=== PATIENT | female | born 1980 | race African-American/Black ===

== ENCOUNTER 2017-02-26 09:53 | Inpatient (IN) | payer OTHER ==
--- NOTE | 2017-02-26 10:16 | PDOC ---
History of Present Illness - History of Present Illness Initial Comments: 02/26/17 11:20 The patient is a 36 year old female, with a significant past medical history of diabetes (17 years) insulin dependent, DKA, who was sent here by her provider for blood glucose of 487. Patient states that she moved to [facility] 3 months ago from [facility]. She states she hasnt found a job since November and has been stretching out her dosage of insulin until she got a chance to see a primary care doctor. She took her last dose of Levemir last night and 26 units of Humalog. She is complaining of nausea, vomiting (clear), diarrhea, abdominal cramping, and burning when she pees. She states her son is also vomiting and has diarrhea. She denies recent fevers, chills, headache or dizziness. She denies recent frequency, urgency or hematuria. She denies recent chest pain or shortness of breath. Allergies: penicillins Primary Care Physician: none <Yesica Bryan - Last Filed: 02/26/17 11:29> <Gricel Hill - Last Filed: 02/26/17 12:12> - General Chief Complaint: Blood Sugar Problem Stated Complaint: DEHYDRATED (REFERRED) Time Seen by Provider: 02/26/17 10:14 Past History <Yesica Bryan - Last Filed: 02/26/17 11:29> - Past Medical History COPD: No Diabetes: Yes - Suicide/Smoking/Psychosocial Hx Smoking History: Never smoked Hx Alcohol Use: No Drug/Substance Use Hx: No Substance Use Type: None <Gricel Hill - Last Filed: 02/26/17 12:12> - Past Medical History Allergies/Adverse Reactions: Allergies Allergy/AdvReac Type Severity Reaction Status Date / Time Penicillins Allergy Verified 02/26/17 10:07 Home Medications: Ambulatory Orders Insulin (Levemir) [Levemir Vial] 35 units SQ BID 02/26/17 Insulin Lispro [Humalog] 0 unit SQ ASDIR 02/26/17 Review of Systems - Review of Systems Comments:: 02/26/17 11:28 GENERAL/CONSTITUTIONAL: No fever or chills. No weakness. HEAD, EYES, EARS, NOSE AND THROAT: No change in vision. No ear pain or discharge. No sore throat. GASTROINTESTINAL: +nausea, +vomiting, +diarrhea, +abdominal cramping, no constipation. GENITOURINARY: +dysuria, no frequency. CARDIOVASCULAR: No chest pain or shortness of breath. RESPIRATORY: No cough, wheezing, or hemoptysis. MUSCULOSKELETAL: No joint or muscle swelling or pain. No neck or back pain. SKIN: No rash NEUROLOGIC: No headache, vertigo, loss of consciousness, or change in strength/ sensation. ENDOCRINE: No increased thirst. No abnormal weight change. HEMATOLOGIC/LYMPHATIC: No anemia, easy bleeding, or history of blood clots. ALLERGIC/IMMUNOLOGIC: No hives or skin allergy. <Yesica Bryan - Last Filed: 02/26/17 11:29> *Physical Exam - Vital Signs Last Vital Signs Temp Pulse Resp BP Pulse Ox 97.5 F L 97 H 20 107/57 100 02/26/17 10:03 02/26/17 10:03 02/26/17 10:03 02/26/17 10:03 02/26/17 11:03 - Physical Exam Comments: 02/26/17 11:31 GENERAL: Awake, alert, and fully oriented, in no acute distress HEAD: No signs of trauma EYES: PERRLA, EOMI, sclera anicteric, conjunctiva clear ENT: Auricles normal inspection, hearing grossly normal, nares patent, oropharynx clear without exudates. Moist mucosa NECK: Normal ROM, supple, no lymphadenopathy, JVD, or masses LUNGS: Breath sounds equal, clear to auscultation bilaterally. No wheezes, and no crackles HEART: +tackycardic.No murmurs, rubs or gallops ABDOMEN: +mild diffuse tenderness. Soft, normoactive bowel sounds. No guarding , no rebound. No masses EXTREMITIES: +trace edema in legs. Normal range of motion. No clubbing or cyanosis. No cords, erythema, or tenderness NEUROLOGICAL: Cranial nerves II through XII grossly intact. Normal speech, normal gait SKIN: Warm, Dry, normal turgor, no rashes or lesions noted. <Yesica Bryan - Last Filed: 02/26/17 11:29> - Vital Signs Last Vital Signs Temp Pulse Resp BP Pulse Ox 97.5 F L 97 H 20 107/57 98 02/26/17 10:03 02/26/17 10:03 02/26/17 10:03 02/26/17 10:03 02/26/17 10:03 <Gricel Hill - Last Filed: 02/26/17 12:12> Heart Score/ECG Review - ECG Intrepretation Comment:: 02/26/17 12:12 sinus at 96, nl axis, nl interval, no acute st/t wave findings <Gricel Hill - Last Filed: 02/26/17 12:12> ED Treatment Course - LABORATORY CBC & Chemistry Diagram: 02/26/17 10:49 02/26/17 10:49 - ADDITIONAL ORDERS Additional order review: Laboratory Results 02/26/17 10:42 ABG pH 7.32 L ABG pCO2 at Pt Temp 19.5 L* ABG pO2 at Pt Temp 141.0 H ABG HCO3 9.9 L* 02/26/17 10:49 RBC 4.46 MCV 89.5 MCHC 31.8 L RDW 13.1 MPV 7.6 Neutrophils % 86.9 H Lymphocytes % 10.0 Monocytes % 2.2 L Eosinophils % 0.1 Basophils % 0.8 - Medications Given in the ED: ED Medications Discontinued Medications Generic Name Dose Route Start Last Admin Trade Name Freq PRN Reason Stop Dose Admin Sodium Chloride 1,000 mls @ 1,000 mls/hr 02/26/17 10:17 02/26/17 10:42 Normal Saline - IV 02/26/17 11:16 1,000 mls/hr .Q1H STA Administration Famotidine/Sodium Chloride 20 mg in 50 mls @ 100 mls/hr 02/26/17 10:47 11:15 Pepcid 20 Mg Premixed Ivpb - IVPB 02/26/17 11:16 100 mls/hr ONCE ONE Administration Ondansetron HCl 8 mg 02/26/17 10:46 02/26/17 11:15 Zofran Odt - SL 02/26/17 10:47 8 mg ONCE ONE Administration Sodium Chloride 1,000 ml 02/26/17 10:47 02/26/17 11:15 Normal Saline - IV 02/26/17 10:48 1,000 ml ONCE ONE Administration <Yesica Bryan - Last Filed: 02/26/17 11:29> - LABORATORY CBC & Chemistry Diagram: 02/26/17 10:49 02/26/17 10:49 <Gricel Hill - Last Filed: 02/26/17 12:12> Medical Decision Making - Critical Care Time Total Critical Care Time (minutes): 45 Critical Care Statement: The care of this patient involved high complexity decision making to prevent further life threatening deterioration of the patient 's condition and/or to evaluate & treat vital organ system(s) failure or risk of failure. - Medical Decision Making 02/26/17 11:48 a/p: 36yo female with hyperglycemia, n/v/d -hx of dka and symptoms similar -has been trying to stretch her meds so using less insulin than prescribed. -tachypnic -concern for poss UTI given dysuria -labs, ekg, cxr, ua, cultures, acetone, abg, reassess -will need admission -pt agreeable to stay for further eval 02/26/17 11:[address] Lujan who accepts the patient to the ICU 02/26/17 11:[address] Kumar who accepts pt to service. 02/26/17 12:12 pt updated on labs. <Gricel Hill - Last Filed: 02/26/17 12:12> *DC/Admit/Observation/Transfer - Attestations Scribe Attestion: 02/26/17 11:34 Documentation prepared by Yesica Bryan, acting as medical assisting instructor for Gricel Hill DO. <Yesica Bryan - Last Filed: 02/26/17 11:29> - Discharge Dispostion Admit: Yes - Attestations Physician Attestion: 02/26/17 11:50 I, Dr. Gricel Hill DO, attest that this document has been prepared under my direction and personally reviewed by me in its entirety. I further attest, that it accurately reflects all work, treatment, procedures and medical decision -making performed by me. <Gricel Hill - Last Filed: 02/26/17 12:12> Diagnosis at time of Disposition: DKA (diabetic ketoacidoses) - Discharge Dispostion Condition at time of disposition: Critical
[2017-02-26] MEDS ORDERED: SODIUM CHLORIDE 1,000 ML IV STA (10:17)
[2017-02-26] MEDS ORDERED: FAMOTIDINE 20 MG/50 ML IVPB 20 MG/50 ML MG IVPB ONE ×2 (10:33→10:47)
[2017-02-26] MEDS ORDERED: ONDANSETRON *ODT* 4 MG TABLET SL ONE (10:46)
[2017-02-26] MEDS ORDERED: SODIUM CHLORIDE 0.9% 1000 ML INFUS.BAG IV ONE (10:47)
[2017-02-26 11:08] LABS: ARTERIAL BLOOD GAS HCO3 9.9 meq/L (22-26); ARTERIAL BLOOD GAS pH 7.32 (7.35-7.45)
[2017-02-26 11:13] LABS: BASOPHIL 0.8 % (0-2.0); EOSINOPHIL 0.1 % (0-4.5); MCH 28.4 pg (25.7-33.7); MCHC 31.8 g/dl (32.0-36.0); MEAN CELL VOLUME 89.5 fl (80-96); MEAN PLT VOLUME 7.6 fl (7.5-11.1); NEUTROPHILS 86.9 % (42.8-82.8); PLATELET COUNT 305 K/MM3 (134-434); RDW 13.1 % (11.6-15.6); WHITE BLOOD COUNT 11.9 K/mm3 (4.0-10.0)
[2017-02-26] MEDS ORDERED: INSULIN REGULAR 100 UNITS in SODIUM CHLORIDE 99 ML IVPB SCH ×3 (11:15→14:45)
[2017-02-26] MEDS ORDERED: INSULIN REGULAR HUMAN 100 UNITS/ML *VIAL ONE (11:28)
[2017-02-26 11:43] LABS: MAGNESIUM 1.9 mg/dL (1.8-2.4)
[2017-02-26 11:43] LABS: ALBUMIN 3.3 g/dl (3.4-5.0); ANION GAP 16 (8-16); CALCIUM 8.3 mg/dL (8.5-10.1); CO2 15 mmol/L (21-32); GLUCOSE,RANDOM 254 mg/dL (74-106); SGOT/AST 11 U/L (15-37); SGPT/ALT 23 U/L (12-78)
[2017-02-26 11:44] LABS: BILIRUBIN,TOTAL 0.6 mg/dL (0.2-1.0)
[2017-02-26 11:47] LABS: ALK PHOS 141 U/L (45-117); CPK 43 IU/L (26-192); TROPONIN I < 0.02 ng/ml (0.00-0.05)
[2017-02-26 12:09] LABS: URINE APPEARANCE SLCLOUDY; URINE BILIRUBIN NEGATIVE (NEGATIVE); URINE BLOOD 1+ (NEGATIVE); URINE COLOR YELLOW; URINE GLUCOSE (UA) 3+ (NEGATIVE); URINE KETONE 2+ (NEGATIVE); URINE NITRITE NEGATIVE (NEGATIVE); URINE UROBILINOGEN NEGATIVE mg/dL (0.2-1.0)
[2017-02-26] MEDS ORDERED: METOCLOPRAMIDE HCL INJECTION 10 MG/2 ML VIAL IVPUSH ONE (12:10)
[2017-02-26] MEDS ORDERED: DEXTROSE 5%-0.45% SALINE 1,000 ML IV SCH ×2 (12:15→13:32)
[2017-02-26 12:31] LABS: URINE PROTEIN 2+ (NEGATIVE)
[2017-02-26 12:32] LABS: URINE HYALINE CAST 14 /lpf; URINE RBC 1; URINE WBC 6
[2017-02-26] MEDS ORDERED: SODIUM CHLORIDE 1,000 ML IV SCH (13:15)
[2017-02-26 13:32] VITALS: BMI 37.5
[2017-02-26 13:48] LABS: PHOSPHOROUS 2.5 mg/dL (2.5-4.9)
--- NOTE | 2017-02-26 14:10 | HP ---
CHIEF COMPLAINT: fatigue PCP: none HISTORY OF PRESENT ILLNESS: 36 year old female with a history of irritable bowel syndrome and diabetes ( Type I or II unknown), presents to the ED with the complaint of 1 day history of fatigue. She states that yesterday, she reduced her insulin dose from 35 units to 20 units because she was running out and did not have any refills. She does not have a PCP in [place] as she just moved from [place] in November. This morning, patient states that she felt nauseous and vomited 5 times (yellow in color). She has had chronic diarrhea she states is from IBS. She states that this morning she began to have abdominal pain in the LUQ that gradually radiated to her epigastrum. States that she has peripheral neuropathy in both legs up to her mid-gastrocnemius. Reports that she was diagnosed with diabetes 9 years ago during an episode of DKA and has since had 4 episodes of DKA since, last one was 4 years ago. Patient states that she had a in November ( her 5th one) which was complicated by "fluid in the belly and a cyst." Denies chest pain, shortness of breath. ER course was notable for: (1) anion gap metabolic acidosis (2) ketonuria (3) blood glucose 254 Recent Travel: Moved to [place] from [place] several months ago PAST MEDICAL HISTORY: IBS Diabetes PAST SURGICAL HISTORY: 5 C-sections Social History: Smoking: denies Alcohol: denies Drugs: denies Family History: Allergies Penicillins Allergy (Verified 02/26/17 10:07) HOME MEDICATIONS: Home Medications Medication Instructions Recorded Insulin (Levemir) [Levemir Vial] 35 units SQ BID 02/26/17 Insulin Lispro [Humalog] 0 unit SQ ASDIR 02/26/17 REVIEW OF SYSTEMS CONSTITUTIONAL: generalized weakness Absent: fever, chills, diaphoresis, malaise, loss of appetite, weight change HEENT: Absent: rhinorrhea, nasal congestion, throat pain, throat swelling, difficulty swallowing, mouth swelling, ear pain, eye pain, visual changes CARDIOVASCULAR: Absent: chest pain, syncope, palpitations, irregular heart rate, lightheadedness , peripheral edema RESPIRATORY: Absent: cough, shortness of breath, dyspnea with exertion, orthopnea, wheezing, stridor, hemoptysis GASTROINTESTINAL: abdominal pain, diarrhea Absent: abdominal distension, nausea, vomiting, constipation, melena, hematochezia GENITOURINARY: Absent: dysuria, frequency, urgency, hesitancy, hematuria, flank pain, genital pain MUSCULOSKELETAL: Absent: myalgia, arthralgia, joint swelling, back pain, neck pain SKIN: Absent: rash, itching, pallor HEMATOLOGIC/IMMUNOLOGIC: Absent: easy bleeding, easy bruising, lymphadenopathy, frequent infections ENDOCRINE: Absent: unexplained weight gain, unexplained weight loss, heat intolerance, cold intolerance NEUROLOGIC: Absent: headache, focal weakness or paresthesias, dizziness, unsteady gait, seizure, mental status changes, bladder or bowel incontinence PSYCHIATRIC: Absent: anxiety, depression, suicidal or homicidal ideation, hallucinations. PHYSICAL EXAMINATION Vital Signs - 24 hr 02/26/17 02/26/17 02/26/17 10:03 11:03 12:07 Temperature 97.5 F L 99.0 F Pulse Rate 97 H Pulse Rate [ 87 Apical] Respiratory 20 18 Rate Blood Pressure 107/57 Blood Pressure 144/87 [Right Arm] O2 Sat by Pulse 98 100 99 Oximetry (%) 02/26/17 02/26/17 12:43 12:49 Temperature 98.9 F Pulse Rate 99 H Pulse Rate [ Apical] Respiratory 13 Rate Blood Pressure 124/85 Blood Pressure 105/70 [Right Arm] O2 Sat by Pulse 100 Oximetry (%) GENERAL: Awake, alert, and fully oriented, in no acute distress. HEAD: Normal with no signs of trauma. EYES: Pupils equal, round and reactive to light, extraocular movements intact, sclera anicteric, conjunctiva clear. No lid lag. EARS, NOSE, THROAT: Ears normal, nares patent, oropharynx clear without exudates. Moist mucous membranes. NECK: Normal range of motion, supple without lymphadenopathy, JVD, or masses. LUNGS: Breath sounds equal, clear to auscultation bilaterally. No wheezes, and no crackles. No accessory muscle use. HEART: Regular rate and rhythm, normal S1 and S2 without murmur, rub or gallop. ABDOMEN: Soft, obese, tender to palpation in the LUQ and RUQ, not distended, normoactive bowel sounds, no guarding, no rebound, no masses. No hepatomegaly or splenomegaly. MUSCULOSKELETAL: Normal range of motion at all joints. No bony deformities or tenderness. No CVA tenderness. UPPER EXTREMITIES: 2+ pulses, warm, well-perfused. No cyanosis. No clubbing. No peripheral edema. LOWER EXTREMITIES: 2+ pulses, warm, well-perfused. No calf tenderness. No peripheral edema. NEUROLOGICAL: Cranial nerves II-XII intact. Normal speech. Normal gait. Decreased sensation along the legs bilaterally below the mid-calf PSYCHIATRIC: Cooperative. Good eye contact. Appropriate mood and affect. SKIN: Warm, dry, normal turgor, no rashes or lesions noted, normal capillary refill. Laboratory Results - last 24 hr 02/26/17 02/26/17 02/26/17 10:18 10:42 10:49 WBC 11.9 H RBC 4.46 Hgb 12.7 Hct 40.0 MCV 89.5 MCH 28.4 MCHC 31.8 L RDW 13.1 Plt Count 305 MPV 7.6 Neutrophils % 86.9 H Lymphocytes % 10.0 Monocytes % 2.2 L Eosinophils % 0.1 Basophils % 0.8 ABG pH 7.32 L ABG pCO2 at Pt Temp 19.5 L* ABG pO2 at Pt Temp 141.0 H ABG HCO3 9.9 L* Sodium Potassium Chloride Carbon Dioxide Anion Gap BUN Creatinine Creat Clearance w eGFR POC Glucometer Random Glucose Lactic Acid Calcium Phosphorus Magnesium Total Bilirubin AST ALT Alkaline Phosphatase Creatine Kinase Troponin I Total Protein Albumin Lipase Beta HCG, Quant Urine Color Urine Appearance Urine pH Ur Specific [place] Urine Protein Urine Glucose (UA) Urine Ketones Urine Blood Urine Nitrite Urine Bilirubin Urine Urobilinogen Urine WBC (Auto) Urine RBC (Auto) Ur Epithelial Cells Hyaline Casts Urine HCG, Qual Negative Acetone, Qual 02/26/17 02/26/17 02/26/17 10:49 11:02 11:02 WBC RBC Hgb Hct MCV MCH MCHC RDW Plt Count MPV Neutrophils % Lymphocytes % Monocytes % Eosinophils % Basophils % ABG pH ABG pCO2 at Pt Temp ABG pO2 at Pt Temp ABG HCO3 Sodium 136 Potassium 4.4 Chloride 105 Carbon Dioxide 15 L Anion Gap 16 BUN 18 Creatinine 1.0 Creat Clearance w eGFR > 60 POC Glucometer Random Glucose 254 H Lactic Acid Calcium 8.3 L Phosphorus Magnesium Total Bilirubin 0.6 AST 11 L ALT 23 Alkaline Phosphatase 141 H Creatine Kinase 43 Troponin I < 0.02 Total Protein 7.0 Albumin 3.3 L Lipase Beta HCG, Quant Urine Color Yellow Urine Appearance Slcloudy Urine pH 5.0 Ur Specific [place] 1.020 Urine Protein 2+ H Urine Glucose (UA) 3+ H Urine Ketones 2+ H Urine Blood 1+ H Urine Nitrite Negative Urine Bilirubin Negative Urine Urobilinogen Negative Urine WBC (Auto) 6 Urine RBC (Auto) 1 Ur Epithelial Cells Few Hyaline Casts 14 Urine HCG, Qual Acetone, Qual Positive large 3+ H 02/26/17 02/26/17 02/26/17 11:02 11:02 12:55 WBC RBC Hgb Hct MCV MCH MCHC RDW Plt Count MPV Neutrophils % Lymphocytes % Monocytes % Eosinophils % Basophils % ABG pH ABG pCO2 at Pt Temp ABG pO2 at Pt Temp ABG HCO3 Sodium Potassium Chloride Carbon Dioxide Anion Gap BUN Creatinine Creat Clearance w eGFR POC Glucometer [phone] Random Glucose Lactic Acid 1.4 Calcium Phosphorus 2.5 Magnesium 1.9 Total Bilirubin AST ALT Alkaline Phosphatase Creatine Kinase Troponin I Total Protein Albumin Lipase 67 L Beta HCG, Quant < 1.0 Urine Color Urine Appearance Urine pH Ur Specific [place] Urine Protein Urine Glucose (UA) Urine Ketones Urine Blood Urine Nitrite Urine Bilirubin Urine Urobilinogen Urine WBC (Auto) Urine RBC (Auto) Ur Epithelial Cells Hyaline Casts Urine HCG, Qual Acetone, Qual ASSESSMENT/PLAN: 36 year old female with a past medical history of IBS and DM presents to the hospital with acute onset DKA. #DKA: likely 2/2 non-compliance -ICU admission -Gap 16, bicarb 15, glu 254, ketonuria, metabolic acidosis -hold home glycemic medications -bolus'd in ED -fluid resuscitation with NS @ 200cc/hr -IV insulin drip 10.65U/hr -NPO -potassium 4.4 -strict I&O -BGMs Q1h -BMP Q2h -repeat ABG in AM -A1C 10.5 -continue insulin drip until anion gap <12 #Nausea: likely 2/2 DKA -pt given reglan #Glucosuria: likely 2/2 diabetes and invokana -hold medications, re-evaluate at a later date FEN -NS @ 200cc/hr -BMP Q2h -NPO Proph -Heparin subq 5000 BID Dispo -Admit to ICU for monitoring -full code Visit type - Emergency Visit Emergency Visit: Yes ED Registration Date: 02/26/17 Care time: The patient presented to the Emergency Department on the above date and was hospitalized for further evaluation of their emergent condition. - New Patient This patient is new to me today: Yes Date on this admission: 02/26/17 - Critical Care Critical Care patient: Yes Total Critical Care Time (in minutes): 30 Critical Care Statement: The care of this patient involved high complexity decision making to prevent further life threatening deterioration of the patient 's condition and/or to evaluate & treat vital organ system(s) failure or risk of failure.
--- NOTE | 2017-02-26 14:33 | CONSULT ---
Consultation: REQUESTING PROVIDER: CONSULT REQUEST: We have been asked to medically evaluate this patient for DKA in ICU. HISTORY OF PRESENT ILLNESS: Pt is a 36 F with PMH DM (per pt, inclusion manager unclear if Type I or II) who presented to ED with nausea, vomiting, diarrhea. Pt began feeling unwell 1 day prior to ED visit. She had a 3 month supply of insulin from her doctor in [place] prior to moving to [place]. She began rationing her insulin by taking 25u instead of 30u until she established care with a doctor here. Pt admits to urinary frequency without burning or urgency. No CP, SOB, headache. REVIEW OF SYSTEMS: CONSTITUTIONAL: diaphoresis, generalized weakness, malaise, loss of appetite Absent: fever, chills, , weight change HEENT: Absent: rhinorrhea, nasal congestion, throat pain, throat swelling, difficulty swallowing, mouth swelling, ear pain, eye pain, visual changes CARDIOVASCULAR: Absent: chest pain, syncope, palpitations, irregular heart rate, lightheadedness , peripheral edema RESPIRATORY: Absent: cough, shortness of breath, dyspnea with exertion, orthopnea, wheezing, stridor, hemoptysis GASTROINTESTINAL:abdominal pain, nausea, vomiting, diarrhea Absent: , abdominal distension, constipation, melena, hematochezia GENITOURINARY: frequency Absent: dysuria, , urgency, hesitancy, hematuria, flank pain, genital pain MUSCULOSKELETAL: Absent: myalgia, arthralgia, joint swelling, back pain, neck pain SKIN: Absent: rash, itching, pallor HEMATOLOGIC/IMMUNOLOGIC: Absent: easy bleeding, easy bruising, lymphadenopathy, frequent infections ENDOCRINE: Absent: unexplained weight gain, unexplained weight loss, heat intolerance, cold intolerance NEUROLOGIC: Absent: headache, focal weakness or paresthesias, dizziness, unsteady gait, seizure, mental status changes, bladder or bowel incontinence PSYCHIATRIC: Absent: anxiety, depression, suicidal or homicidal ideation, hallucinations. PHYSICAL EXAMINATION Vital Signs - 24 hr 02/26/17 02/26/17 02/26/17 10:03 11:03 12:07 Temperature 97.5 F L 99.0 F Pulse Rate 97 H Pulse Rate [ 87 Apical] Respiratory 20 18 Rate Blood Pressure 107/57 Blood Pressure 144/87 [Right Arm] O2 Sat by Pulse 98 100 99 Oximetry (%) 02/26/17 02/26/17 12:43 12:49 Temperature 98.9 F Pulse Rate 99 H Pulse Rate [ Apical] Respiratory 13 Rate Blood Pressure 124/85 Blood Pressure 105/70 [Right Arm] O2 Sat by Pulse 100 Oximetry (%) GENERAL: Awake, alert, and fully oriented, in no acute distress, however pt appears uncomfortable. HEAD: Normal with no signs of trauma. EYES: Pupils equal, round and reactive to light, extraocular movements intact, sclera anicteric, conjunctiva clear. No lid lag. EARS, NOSE, THROAT: oropharynx clear without exudates. Moist mucous membranes. NECK: Normal range of motion, supple without lymphadenopathy, JVD, or masses. No bruits LUNGS: Breath sounds equal, clear to auscultation bilaterally. No wheezes, and no crackles. No accessory muscle use. HEART: Regular rate and rhythm, normal S1 and S2 with soft 2/6 systolic murmur at LUSB, no rub or gallop. ABDOMEN: Soft, nontender, not distended, normoactive bowel sounds, no guarding, no rebound, no masses. No hepatomegaly or splenomegaly. MUSCULOSKELETAL: Normal range of motion at all joints. No bony deformities or tenderness. No CVA tenderness. UPPER EXTREMITIES: 2+ pulses, warm, well-perfused. No cyanosis. No clubbing. Cap refill <2 seconds. No peripheral edema. LOWER EXTREMITIES: 2+ pulses, warm, well-perfused. No calf tenderness. No peripheral edema. NEUROLOGICAL: Cranial nerves II-XII intact. Normal speech. Normal gait. PSYCHIATRIC: Cooperative. Good eye contact. Appropriate mood and affect. SKIN: Warm, dry, normal turgor, no rashes or lesions noted. Laboratory Results - last 24 hr 02/26/17 02/26/17 02/26/17 10:18 10:42 10:49 WBC 11.9 H RBC 4.46 Hgb 12.7 Hct 40.0 MCV 89.5 MCH 28.4 MCHC 31.8 L RDW 13.1 Plt Count 305 MPV 7.6 Neutrophils % 86.9 H Lymphocytes % 10.0 Monocytes % 2.2 L Eosinophils % 0.1 Basophils % 0.8 ABG pH 7.32 L ABG pCO2 at Pt Temp 19.5 L* ABG pO2 at Pt Temp 141.0 H ABG HCO3 9.9 L* Sodium Potassium Chloride Carbon Dioxide Anion Gap BUN Creatinine Creat Clearance w eGFR POC Glucometer Random Glucose Lactic Acid Calcium Phosphorus Magnesium Total Bilirubin AST ALT Alkaline Phosphatase Creatine Kinase Troponin I Total Protein Albumin Lipase Beta HCG, Quant Urine Color Urine Appearance Urine pH Ur Specific [place] Urine Protein Urine Glucose (UA) Urine Ketones Urine Blood Urine Nitrite Urine Bilirubin Urine Urobilinogen Urine WBC (Auto) Urine RBC (Auto) Ur Epithelial Cells Hyaline Casts Urine HCG, Qual Negative Acetone, Qual 02/26/17 02/26/17 02/26/17 10:49 11:02 11:02 WBC RBC Hgb Hct MCV MCH MCHC RDW Plt Count MPV Neutrophils % Lymphocytes % Monocytes % Eosinophils % Basophils % ABG pH ABG pCO2 at Pt Temp ABG pO2 at Pt Temp ABG HCO3 Sodium 136 Potassium 4.4 Chloride 105 Carbon Dioxide 15 L Anion Gap 16 BUN 18 Creatinine 1.0 Creat Clearance w eGFR > 60 POC Glucometer Random Glucose 254 H Lactic Acid Calcium 8.3 L Phosphorus Magnesium Total Bilirubin 0.6 AST 11 L ALT 23 Alkaline Phosphatase 141 H Creatine Kinase 43 Troponin I < 0.02 Total Protein 7.0 Albumin 3.3 L Lipase Beta HCG, Quant Urine Color Yellow Urine Appearance Slcloudy Urine pH 5.0 Ur Specific [place] 1.020 Urine Protein 2+ H Urine Glucose (UA) 3+ H Urine Ketones 2+ H Urine Blood 1+ H Urine Nitrite Negative Urine Bilirubin Negative Urine Urobilinogen Negative Urine WBC (Auto) 6 Urine RBC (Auto) 1 Ur Epithelial Cells Few Hyaline Casts 14 Urine HCG, Qual Acetone, Qual Positive large 3+ H 02/26/17 02/26/17 02/26/17 11:02 11:02 12:55 WBC RBC Hgb Hct MCV MCH MCHC RDW Plt Count MPV Neutrophils % Lymphocytes % Monocytes % Eosinophils % Basophils % ABG pH ABG pCO2 at Pt Temp ABG pO2 at Pt Temp ABG HCO3 Sodium Potassium Chloride Carbon Dioxide Anion Gap BUN Creatinine Creat Clearance w eGFR POC Glucometer [phone] Random Glucose Lactic Acid 1.4 Calcium Phosphorus 2.5 Magnesium 1.9 Total Bilirubin AST ALT Alkaline Phosphatase Creatine Kinase Troponin I Total Protein Albumin Lipase 67 L Beta HCG, Quant < 1.0 Urine Color Urine Appearance Urine pH Ur Specific [place] Urine Protein Urine Glucose (UA) Urine Ketones Urine Blood Urine Nitrite Urine Bilirubin Urine Urobilinogen Urine WBC (Auto) Urine RBC (Auto) Ur Epithelial Cells Hyaline Casts Urine HCG, Qual Acetone, Qual Active Medications Generic Name Dose Route Start Last Admin Trade Name Freq PRN Reason Stop Dose Admin Chlorhexidine Gluconate 1 applic 02/26/17 22:00 Hibiclens For Decolonization - TP HS KAY Heparin Sodium (Porcine) 5,000 unit 02/26/17 13:15 Heparin - SQ BID KAY Dextrose/Sodium Chloride 1,000 mls @ 125 mls/hr 02/26/17 13:32 D5-1/2ns - IV ASDIR KAY Insulin Human Regular 100 100 mls @ 0 mls/hr 02/26/17 14:13 units/ Sodium Chloride IVPB TITR KAY Protocol Titrate Mupirocin 1 applic 02/26/17 22:00 Bactroban Ointment (For Decolonization) - NS 03/03/17 21:59 BID KAY ASSESSMENT/PLAN: Pt is a 36 F w/ PMH IDDM who presented to ED with nausea, vomiting, diarrhea, malaise. Pt was admitted to ICU with DKA. #DKA -Likely 2/2 Ins rationing by patient -rand glucose 254, Gap 16, LA 1.4 -ABG: pH 7.32, pCO2 19.5, HCO3 9.9, rest is pending -BMP Q2, BGM Q1 -On D5 1/2NS -Ins .05 u/kg/hr now that [place] glucose is 254 #Pseudohypocalcemia -Ca 8.3, Alb 3.3, Ca corrected to 8.9 #Urinary frequency -likely 2/2 glucosuria -UA pos for [place], protein, glucose, blood #FEN -on D5 1/2 NS -pseudohypocalcemia -NPO Dispo: Pt admitted to ICU with DKA. We will continue to follow the patient. Thank you for this consultative opportunity. Christopher Ochoa MD PGY-1 ICU case discussed with attending Visit type - Emergency Visit Emergency Visit: No - New Patient This patient is new to me today: Yes Date on this admission: 02/26/17 - Critical Care Critical Care patient: No Total Critical Care Time (in minutes): 35 Critical Care Statement: The care of this patient involved high complexity decision making to prevent further life threatening deterioration of the patient 's condition and/or to evaluate & treat vital organ system(s) failure or risk of failure.
[2017-02-26 14:47] LABS: ALBUMIN 3.2 g/dl (3.4-5.0); ALK PHOS 133 U/L (45-117); ANION GAP 15 (8-16); BILIRUBIN,TOTAL 0.5 mg/dL (0.2-1.0); CALCIUM 8.3 mg/dL (8.5-10.1); CO2 15 mmol/L (21-32); CREATININE 0.8 mg/dL (0.55-1.02); GLUCOSE,RANDOM 185 mg/dL (74-106); SGOT/AST 11 U/L (15-37); SGPT/ALT 22 U/L (12-78); TOT PROT 6.8 g/dl (6.4-8.2)
[2017-02-26] MEDS: HEPARIN NA (PORCINE) 5,000 UNITS/ML 1ML VIAL SQ SCH ×2 (15:14→21:35)
[2017-02-26 15:36] LABS: MAGNESIUM 2.1 mg/dL (1.8-2.4)
--- NOTE | 2017-02-26 16:25 | PN ---
Teaching Attending Note Name of Resident: Jacoby Carbone ATTENDING PHYSICIAN STATEMENT I saw and evaluated the patient. I reviewed the resident's note and discussed the case with the resident. I agree with the resident's findings and plan as documented. SUBJECTIVE: OBJECTIVE: Vital Signs Period Temp Pulse Resp BP Sys/Saavedra Pulse Ox Last 24 Hr 97.5 F-99.0 F 87-99 13-20 105-144/57-87 98-100 Home Medications Medication Instructions Recorded Insulin (Levemir) [Levemir Vial] 35 units SQ BID 02/26/17 Insulin Lispro [Humalog] 0 unit SQ ASDIR 02/26/17 Laboratory Tests 02/26/17 02/26/17 02/26/17 10:18 10:42 10:49 WBC 11.9 H RBC 4.46 Hgb 12.7 Hct 40.0 MCV 89.5 MCH 28.4 MCHC 31.8 L RDW 13.1 Plt Count 305 MPV 7.6 Neutrophils % 86.9 H Lymphocytes % 10.0 Monocytes % 2.2 L Eosinophils % 0.1 Basophils % 0.8 ABG pH 7.32 L ABG pCO2 at Pt Temp 19.5 L* ABG pO2 at Pt Temp 141.0 H ABG HCO3 9.9 L* Sodium Potassium Chloride Carbon Dioxide Anion Gap BUN Creatinine Creat Clearance w eGFR POC Glucometer Random Glucose Hemoglobin A1c % Lactic Acid Calcium Phosphorus Magnesium Total Bilirubin AST ALT Alkaline Phosphatase Creatine Kinase Troponin I Total Protein Albumin Lipase Beta HCG, Quant Urine Color Urine Appearance Urine pH Ur Specific [place] Urine Protein Urine Glucose (UA) Urine Ketones Urine Blood Urine Nitrite Urine Bilirubin Urine Urobilinogen Urine WBC (Auto) Urine RBC (Auto) Ur Epithelial Cells Hyaline Casts Urine HCG, Qual Negative Acetone, Qual 02/26/17 02/26/17 02/26/17 10:49 11:02 11:02 WBC RBC Hgb Hct MCV MCH MCHC RDW Plt Count MPV Neutrophils % Lymphocytes % Monocytes % Eosinophils % Basophils % ABG pH ABG pCO2 at Pt Temp ABG pO2 at Pt Temp ABG HCO3 Sodium 136 Potassium 4.4 Chloride 105 Carbon Dioxide 15 L Anion Gap 16 BUN 18 Creatinine 1.0 Creat Clearance w eGFR > 60 POC Glucometer Random Glucose 254 H Hemoglobin A1c % Lactic Acid Calcium 8.3 L Phosphorus Magnesium Total Bilirubin 0.6 AST 11 L ALT 23 Alkaline Phosphatase 141 H Creatine Kinase 43 Troponin I < 0.02 Total Protein 7.0 Albumin 3.3 L Lipase Beta HCG, Quant Urine Color Yellow Urine Appearance Slcloudy Urine pH 5.0 Ur Specific [place] 1.020 Urine Protein 2+ H Urine Glucose (UA) 3+ H Urine Ketones 2+ H Urine Blood 1+ H Urine Nitrite Negative Urine Bilirubin Negative Urine Urobilinogen Negative Urine WBC (Auto) 6 Urine RBC (Auto) 1 Ur Epithelial Cells Few Hyaline Casts 14 Urine HCG, Qual Acetone, Qual Positive large 3+ H 02/26/17 02/26/17 02/26/17 11:02 11:02 12:55 WBC RBC Hgb Hct MCV MCH MCHC RDW Plt Count MPV Neutrophils % Lymphocytes % Monocytes % Eosinophils % Basophils % ABG pH ABG pCO2 at Pt Temp ABG pO2 at Pt Temp ABG HCO3 Sodium Potassium Chloride Carbon Dioxide Anion Gap BUN Creatinine Creat Clearance w eGFR POC Glucometer [phone] Random Glucose Hemoglobin A1c % Lactic Acid 1.4 Calcium Phosphorus 2.5 Magnesium 1.9 Total Bilirubin AST ALT Alkaline Phosphatase Creatine Kinase Troponin I Total Protein Albumin Lipase 67 L Beta HCG, Quant < 1.0 Urine Color Urine Appearance Urine pH Ur Specific [place] Urine Protein Urine Glucose (UA) Urine Ketones Urine Blood Urine Nitrite Urine Bilirubin Urine Urobilinogen Urine WBC (Auto) Urine RBC (Auto) Ur Epithelial Cells Hyaline Casts Urine HCG, Qual Acetone, Qual 02/26/17 02/26/17 13:19 14:10 WBC RBC Hgb Hct MCV MCH MCHC RDW Plt Count MPV Neutrophils % Lymphocytes % Monocytes % Eosinophils % Basophils % ABG pH ABG pCO2 at Pt Temp ABG pO2 at Pt Temp ABG HCO3 Sodium 138 Potassium 4.5 Chloride 108 H Carbon Dioxide 15 L Anion Gap 15 BUN 14 D Creatinine 0.8 Creat Clearance w eGFR > 60 POC Glucometer Random Glucose 185 H D Hemoglobin A1c % 10.5 H Lactic Acid Calcium 8.3 L Phosphorus Magnesium 2.1 Total Bilirubin 0.5 AST 11 L ALT 22 Alkaline Phosphatase 133 H Creatine Kinase Troponin I Total Protein 6.8 Albumin 3.2 L Lipase Beta HCG, Quant Urine Color Urine Appearance Urine pH Ur Specific [place] Urine Protein Urine Glucose (UA) Urine Ketones Urine Blood Urine Nitrite Urine Bilirubin Urine Urobilinogen Urine WBC (Auto) Urine RBC (Auto) Ur Epithelial Cells Hyaline Casts Urine HCG, Qual Acetone, Qual ASSESSMENT AND PLAN:
[2017-02-26 20:23] LABS: ANION GAP 10 (8-16); CALCIUM 8.2 mg/dL (8.5-10.1); CO2 19 mmol/L (21-32); CREATININE 0.8 mg/dL (0.55-1.02); GLUCOSE,RANDOM 98 mg/dL (74-106)
[2017-02-26] MEDS ORDERED: ACETAMINOPHEN 325 MG TABLET (FP) PO PRN ×2 (20:46→22:45)
[2017-02-26 21:32] LABS: URINE LEUK ESTERASE Negative (NEGATIVE)
[2017-02-26] MEDS: INSULIN DETEMIR 100 UNITS/ML MDV SQ SCH (21:35)
[2017-02-26] MEDS ORDERED: INSULIN SLIDING SCALE (NOVOLOG) 1 VIAL SQ SCH (22:00)
[2017-02-26] MEDS ORDERED: MUPIROCIN 2% TOPICAL OINTMENT FOR DECOLONIZATION NS SCH (22:00)
[2017-02-26] MEDS ORDERED: CHLORHEXIDINE GLUCONATE 4% CLEANSER FOR DECOLONIZATION TP SCH (22:00)
[2017-02-26 23:01] LABS: ANION GAP 13 (8-16); CALCIUM 7.7 mg/dL (8.5-10.1); CO2 17 mmol/L (21-32); CREATININE 0.8 mg/dL (0.55-1.02); GLUCOSE,RANDOM 291 mg/dL (74-106)
[2017-02-27] MEDS ORDERED: INSULIN (NOVOLOG) ASPART 100 UNITS/ML 10ML VIAL SQ ONE (03:40)
[2017-02-27] MEDS: INSULIN DETEMIR 100 UNITS/ML MDV SQ SCH ×3 (03:58→21:26)
[2017-02-27] MEDS: INSULIN SLIDING SCALE (NOVOLOG) 1 VIAL SQ SCH ×4 (06:36→21:27)
[2017-02-27] MEDS ORDERED: INSULIN (NOVOLOG) ASPART 100 UNITS/ML 10ML VIAL ONE (07:05)
[2017-02-27 07:32] LABS: ARTERIAL BLOOD GAS BASE EXCESS -4.1 meq/l (-2-2); ARTERIAL BLOOD GAS HCO3 20.5 meq/L (22-26); ARTERIAL BLOOD GAS PO2 75.2 mmHg (80-100); ARTERIAL BLOOD GAS pH 7.35 (7.35-7.45)
[2017-02-27 07:40] LABS: ART PUNCT SITE RIGHT BRACHIAL; PT. ON O2? NO; TYPE OF O2 ROOM AIR
[2017-02-27 08:22] LABS: MCH 28.4 pg (25.7-33.7); MCHC 32.3 g/dl (32.0-36.0); MEAN CELL VOLUME 87.7 fl (80-96); MEAN PLT VOLUME 7.7 fl (7.5-11.1); PLATELET COUNT 276 K/MM3 (134-434); RDW 12.9 % (11.6-15.6); WHITE BLOOD COUNT 8.1 K/mm3 (4.0-10.0)
[2017-02-27 08:35] LABS: ANION GAP 11 (8-16); CALCIUM 7.9 mg/dL (8.5-10.1); CO2 19 mmol/L (21-32); CREATININE 0.8 mg/dL (0.55-1.02); GLUCOSE,RANDOM 138 mg/dL (74-106)
[2017-02-27] MEDS ORDERED: PT OWN MED DRAWER 7, Y5N ONE (10:53)
[2017-02-27] MEDS: MUPIROCIN 2% TOPICAL OINTMENT FOR DECOLONIZATION NS SCH ×2 (10:59→21:37)
[2017-02-27] MEDS: HEPARIN NA (PORCINE) 5,000 UNITS/ML 1ML VIAL SQ SCH ×2 (11:20→21:22)
--- NOTE | 2017-02-27 12:32 | EKG ---
Test Reason : Blood Pressure : / mmHG Vent. Rate : 096 BPM Atrial Rate : 096 BPM P-R Int : 158 ms QRS Dur : 100 ms QT Int : 380 ms P-R-T Axes : 050 002 022 degrees QTc Int : 480 ms POOR DATA QUALITY, INTERPRETATION MAY BE ADVERSELY AFFECTED NORMAL SINUS RHYTHM PROLONGED QT ABNORMAL ECG NO PREVIOUS ECGS AVAILABLE Confirmed by ALIIRO DE LEON MD ([id number]) on 02/27/2017 12:31:59 PM Referred By: Confirmed By:ALIRIO DE LEON MD
--- NOTE | 2017-02-27 13:22 | MSN ---
Progress Note (SOAP) - Subjective Chief Complaint: Fatigue and abdominal pain History of Present Illness: Marjan Farias is a 36 yo F with PMHx of IBS, IDDM (unsure if type 1 or type 2 ), and peripheral neuropathy presented to the ED for fatigue and abdominal pain. Patient was admitted to the ICU for DKA. On admission, patient had AG of 15, bicarb 9.9, and BG 254. Patient's AG closed yesterday night and she was moved to the floors. Today, patient states she is feeling much better. Patient still reports LUQ abdominal pain that radiates to the RUQ, RLQ, and right flank. She states her pain improved form yesterday and is currently 4/10 in severity. She also reports dizziness with position change and headache, but states that her sx have improved from yesterday. She also reports numbness and tingling from below her knees bilaterally all the way down to her toes due to diabetic peripheral neuropathy. Patient states that she is no longer going to the bathroom frequently to urinate. Patient currently denies nausea, vomiting, SOB, fatigue, chest pain, dysuria, hematuria or urinary frequency. - Current Medications Current Medications: Active Medications Acetaminophen (Tylenol -) 650 mg PO Q6H PRN PRN Reason: FEVER OR PAIN Heparin Sodium (Porcine) (Heparin -) 5,000 unit SQ BID [facility] Last Admin: 02/27/17 11:20 Dose: Not Given Insulin Aspart (Novolog Vial Sliding Scale -) 1 vial SQ ACHS [facility] PRN Reason: Protocol Last Admin: 02/27/17 11:18 Dose: Not Given Insulin Detemir (Levemir Vial) 35 units SQ BID@0700,2200 [facility] Last Admin: 02/27/17 06:36 Dose: 35 units Mupirocin (Bactroban Ointment (For Decolonization) -) 1 applic NS BID [facility] Stop: 03/03/17 21:59 Last Admin: 02/27/17 10:59 Dose: Not Given - Objective Vital Signs: Vital Signs Temperature 98.7 F 02/27/17 06:35 Pulse Rate 91 H 02/27/17 06:35 Respiratory Rate 19 02/27/17 06:35 Blood Pressure 116/72 02/27/17 06:35 O2 Sat by Pulse Oximetry (%) 100 02/26/17 21:00 Constitutional: Yes: Well Nourished, Calm Eyes: Yes: Conjunctiva Clear, PERRL HENT: Yes: Atraumatic, Normocephalic Neck: Yes: WNL, Supple Cardiovascular: Yes: Regular Rate and Rhythm Respiratory: Yes: CTA Bilaterally Gastrointestinal: Yes: Normal Bowel Sounds, Soft, Tenderness, Other (Tenderness to palpation in RUQ and RLQ > LUQ) Genitourinary: Yes: CVA Tenderness - Right Peripheral Pulses WNL: Yes (2+ pulses in bilateral upper extremities) Edema: No Neurological: Yes: Alert, Oriented Labs Lab Results: CBC, BMP 02/27/17 07:00 02/27/17 07:00 Assessment/Plan Marjan Farias is a 36 yo F w/ pmhx of IBS, IDDM (unsure whether type 1 or type 2), peripheral neuropathy, who came into the ED for fatigue and abdominal pain. She was admitted to ICU for DKA. 1. DKA likely secondary to non-compliance with insulin - Resolved. AG is 11, bicarb is 20.5, pH is 7.35, glucose is 166 - Levemir 35 U SQ BID - Novolog 1 vial SQ ACHS - Pain- tylenol 650 mg PO Q6H PRN - Will talk to social media community manager to connect patient with a PCP 2. Dizziness likely due to orthostatic hypotension - Orthostatics positive: supine R arm: 116/72, sitting R arm: 126/79, standing R arm: 91/51 - Will bolus a liter of NS then reassess 3. IBS - Continue Imodium 4. DVT proph - Heparin 5000 U SQ BID
--- NOTE | 2017-02-27 13:52 | PN ---
Teaching Attending Note Name of Resident: Jacoby Carbone ATTENDING PHYSICIAN STATEMENT I saw and evaluated the patient. I reviewed the resident's note and discussed the case with the resident. I agree with the resident's findings and plan as documented. SUBJECTIVE:c/o dizzyness, worse on exertion. denies Cp, SOB, fever, chills, N/V/ C/D OBJECTIVE: Last Vital Signs Temp Pulse Resp BP Pulse Ox 98.4 F 84 19 111/69 98 02/27/17 09:00 02/27/17 09:00 02/27/17 09:00 02/27/17 09:00 02/27/17 09:00 General NAD HEENT no nystagmus CV S1 S2 RRR no murmur/rub/gallop Lungs CTA B/L No wheezing/rales/rhonchi ASSESSMENT AND PLAN: 36yo F with PMH DM presented to the ER iwth nausea, vomiting and diarrhea and found to be in DKA 1. DKA-due to reducing insulin regimen on her own. A1c 11. (close to what it was 2 months ago per pt) AG closed at 2100. received Levemir 35units. sugars are improved. pt recently relocated and does not have insurance so has been unable to afford medications or see PMD. will monitor sugars over the next 24H to optimize sugar control. discussed importance of insulin compliance. will d/w SW about assisting in affordable 2. Dizzyness- likley dehydration with DKA. check orthostatics. will give IVF if needed 3. urinary frequency-due to DKA. UA negative. resolved 4. Diarrhea- due to DKA. resolved 5. DVT ppx- lovenox 6. d/c home in AM pending improved sugars.
--- NOTE | 2017-02-27 14:23 | PN ---
Physical Exam: SUBJECTIVE: Patient seen and examined at bedside. Patient states that she is a little lightheaded but otherwise says she feels better than when she came in this morning. Denies chest pain, SOB, nausea, vomiting, diarrhea, fevers, chills. OBJECTIVE: Vital Signs Period Temp Pulse Resp BP Sys/Saavedra Pulse Ox Last 24 Hr 97.7 F-98.7 F 84-94 12-20 101-132/61-89 98-100 GENERAL: Awake, alert, and fully oriented, in no acute distress. LUNGS: Breath sounds equal, clear to auscultation bilaterally. No wheezes, and no crackles. No accessory muscle use. HEART: Regular rate and rhythm, normal S1 and S2 without murmur, rub or gallop. ABDOMEN: Soft, obese, tender to palpation in the LUQ and RUQ, not distended, normoactive bowel sounds, no guarding, no rebound, no masses. No hepatomegaly or splenomegaly. NEUROLOGICAL: Cranial nerves II-XII intact. Normal speech. Normal gait. Decreased sensation along the legs bilaterally below the mid-calf PSYCHIATRIC: Cooperative. Good eye contact. Appropriate mood and affect. SKIN: Warm, dry, normal turgor, no rashes or lesions noted, normal capillary refill. Active Medications Generic Name Dose Route Start Last Admin Trade Name Freq PRN Reason Stop Dose Admin Acetaminophen 650 mg 02/26/17 22:45 Tylenol - PO Q6H PRN FEVER OR PAIN Heparin Sodium (Porcine) 5,000 unit 02/27/17 10:00 02/27/17 11:20 Heparin - SQ Not Given BID [facility] Insulin Aspart 1 vial 02/27/17 07:00 02/27/17 11:18 Novolog Vial Sliding Scale - SQ Not Given ACHS [facility] Protocol Insulin Detemir 35 units 02/27/17 07:00 02/27/17 06:36 Levemir Vial SQ 35 units BID@0700,2200 [facility] Administration Mupirocin 1 applic 02/27/17 10:00 02/27/17 10:59 Bactroban Ointment (For Decolonization) - NS 03/03/17 21:59 Not Given BID [facility] CBC, BMP 02/27/17 07:00 02/27/17 07:00 ANION GAP: 11 ASSESSMENT/PLAN: 36 year old female with a past medical history of IBS and DM presents to the hospital with acute onset DKA. #DKA: 2/2 non-compliance of her diabetic medications -resolved today -Gap 11, bicarb 19, glu 138 -started levemir 35U BID in the morning -Novolog sliding scale, 2U given at 6:30am, none in the afternoon. -Patient is tolerating solid food, hold fluids -repeat BMP at 4:30pm tonight -A1C 10.5 -transfer to med-surg today -likely DC in AM #Orthostatic hypotension: laying 116/72, standing 91/51 -give bolus 500 NS #Nausea: likely 2/2 DKA -Resolved #Glucosuria: likely 2/2 diabetes and invokana -stable FEN -No standing fluids -potassium 3.6, replete -diabetic diet Proph -Heparin subq 5000 BID Dispo -continue to monitor on med-surg -possible DC in the AM tomorrow -full code Visit type - Emergency Visit Emergency Visit: No - New Patient This patient is new to me today: No - Critical Care Critical Care patient: No
[2017-02-27] MEDS ORDERED: POTASSIUM CHLORIDE ORAL LIQUID 20 MEQ/15 ML PO ONE (15:30)
[2017-02-27] MEDS ORDERED: SODIUM CHLORIDE 500 ML IV STA (16:11)
[2017-02-27 19:11] LABS: ANION GAP 10 (8-16); CALCIUM 7.9 mg/dL (8.5-10.1); CO2 22 mmol/L (21-32); CREATININE 1.1 mg/dL (0.55-1.02); GLUCOSE,RANDOM 270 mg/dL (74-106)
[2017-02-28] MEDS: INSULIN SLIDING SCALE (NOVOLOG) 1 VIAL SQ SCH ×3 (06:47→16:41)
[2017-02-28] MEDS: INSULIN DETEMIR 100 UNITS/ML MDV SQ SCH (06:49)
[2017-02-28] MEDS ORDERED: INSULIN (NOVOLOG) ASPART 100 UNITS/ML 10ML VIAL ONE (06:51)
[2017-02-28 08:12] LABS: MCH 28.8 pg (25.7-33.7); MCHC 32.6 g/dl (32.0-36.0); MEAN CELL VOLUME 88.2 fl (80-96); MEAN PLT VOLUME 7.6 fl (7.5-11.1); PLATELET COUNT 234 K/MM3 (134-434); RDW 12.8 % (11.6-15.6); WHITE BLOOD COUNT 7.1 K/mm3 (4.0-10.0)
[2017-02-28] MEDS ORDERED: INSULIN DETEMIR 100 UNITS/ML MDV SQ ONE (08:15)
[2017-02-28 08:46] LABS: ANION GAP 10 (8-16); CALCIUM 8.6 mg/dL (8.5-10.1); CO2 20 mmol/L (21-32); CREATININE 0.6 mg/dL (0.55-1.02); GLUCOSE,RANDOM 221 mg/dL (74-106)
[2017-02-28] MEDS: HEPARIN NA (PORCINE) 5,000 UNITS/ML 1ML VIAL SQ SCH (10:48)
[2017-02-28] MEDS: MUPIROCIN 2% TOPICAL OINTMENT FOR DECOLONIZATION NS SCH (10:49)
--- NOTE | 2017-02-28 13:24 | PN ---
Teaching Attending Note Name of Resident: Jacoby Carbone ATTENDING PHYSICIAN STATEMENT I saw and evaluated the patient. I reviewed the resident's note and discussed the case with the resident. I agree with the resident's findings and plan as documented. SUBJECTIVE:c/o loose BM last night assoc with abdominal pain. states she normally takes immodium daily which she has not taken for several days. states dizzyness has resolved. denies CP, SOB, fever, chills, N/V/C OBJECTIVE: Last Vital Signs Temp Pulse Resp BP Pulse Ox 97.9 F 85 18 126/86 98 02/28/17 08:15 02/28/17 08:15 02/28/17 09:00 02/28/17 08:15 02/28/17 09:00 General NAD abdomen diffuse tenderness no rebound or guarding ASSESSMENT AND PLAN: 36yo F with PMH DM presented to the ER iwth nausea, vomiting and diarrhea and found to be in DKA 1. DKA-due to reducing insulin regimen on her own. A1c 11. (close to what it was 2 months ago per pt). improved on home medication. will d/c on levemir 35untis BID and iss. instructed to log sugars for the next few days and to go to clinic on friday to titrate insulin if neeeded. explained importance of tight glycemic control. 2. Dizzyness- likley dehydration with DKA. +orthostatics yesterday. s/p IVF. resolved 3. urinary frequency-due to DKA. UA negative. resolved 4. Diarrhea- IBS predominant diarrhea. took her own immodium this am with improvement. was seeing a GI in [place] which she has not followed up. will give referral for outpatinet workup. 5. DVT ppx- lovenox 6. d/c home. d/w CM and SW about assisting pt in affording medications. she is medicaid pending
--- NOTE | 2017-02-28 14:09 | MSN ---
Progress Note (SOAP) - Subjective Chief Complaint: Fatigue and abdominal pain History of Present Illness: Marjan Farias is a 36 yo F w/ pmhx of IBS, peripheral neuropathy, and DM ( unsure whether type 1 or type 2) presented to ED with fatigue and abdominal pain. Patient was admitted for DKA. Patient states that she is doing well and that her dizziness has resolved. Patient still reports some mild abdominal pain in the LUQ, RUQ, and RLQ. Patient also states that she had a few episodes of diarrhea yesterday and states she has history of chronic diarrhea due to IBS. She states she wasn't taking her diarrhea medication while she was at the hospital. She reports that this morning she took 1 tablet of imodium with relief. She hasn't had any episodes of diarrhea today so far. Patient denies nausea, vomiting, constipation, chest pain, SOB, fatigue, weakness or dizziness. - Current Medications Current Medications: Active Medications Acetaminophen (Tylenol -) 650 mg PO Q6H PRN PRN Reason: FEVER OR PAIN Heparin Sodium (Porcine) (Heparin -) 5,000 unit SQ BID [facility] Last Admin: 02/28/17 10:48 Dose: 5,000 unit Insulin Aspart (Novolog Vial Sliding Scale -) 1 vial SQ ACHS [facility] PRN Reason: Protocol Last Admin: 02/28/17 11:44 Dose: 2 units Insulin Detemir (Levemir Vial) 35 units SQ BID@0700,2200 [facility] Last Admin: 02/28/17 06:49 Dose: 35 units Mupirocin (Bactroban Ointment (For Decolonization) -) 1 applic NS BID [facility] Stop: 03/03/17 21:59 Last Admin: 02/28/17 10:49 Dose: Not Given - Objective Vital Signs: Vital Signs Temperature 97.9 F 02/28/17 08:15 Pulse Rate 85 02/28/17 08:15 Respiratory Rate 18 02/28/17 09:00 Blood Pressure 126/86 02/28/17 08:15 O2 Sat by Pulse Oximetry (%) 98 02/28/17 09:00 Constitutional: Yes: Well Nourished, No Distress, Calm, Obese Eyes: Yes: Conjunctiva Clear, EOM Intact HENT: Yes: Atraumatic, Normocephalic Neck: Yes: Supple, Trachea Midline Cardiovascular: Yes: Regular Rate and Rhythm (no murmurs, rubs, or gallops) Respiratory: Yes: Regular, CTA Bilaterally (no wheezes, rales or rhonchi) Gastrointestinal: Yes: Normal Bowel Sounds, Soft, Tenderness (+tenderness to palpation in RUQ and RLQ, no guarding) Genitourinary: Yes: Other (no CVA tenderness) Edema: No Edema: LUE: 2+, RUE: 2+ Neurological: Yes: Alert, Oriented, Numbness, Tingling (numbness in tingling from below the knees BL all the way down to toes BL) Labs Lab Results: CBC, BMP 02/28/17 08:06 02/28/17 08:06 Assessment/Plan Marjan Farias is a 36 yo F w/ pmhx of IBS, Peripheral neuropathy, DM (unsure whether type 1 or type 2), who came into the ED with fatigue and abdominal pain. She was admitted to ICU for DKA. 1. DKA likely secondary to non-compliance with insulin - Resolved. AG is 10, bicarb is 20, glucose is 179 - Levemir 35 U SQ BID - Novolog 1 vial SQ ACHS - Pain- tylenol 650 mg PO Q6H PRN - Will talk to sexual assault social worker to connect patient with a PCP 2. Dizziness likely due to orthostatic hypotension - Orthostatics positive: supine R arm: 116/72, sitting R arm: 126/79, standing R arm: 91/51 - 500 mls of NS bolus was given - Now resolved 3. Diarrhea secondary to IBS - Took 1 tablet of Imodium with relief - Now resolved - Continue Imodium 4. DVT proph - Heparin 5000 U SQ BID Dispo - Can discharge to home - Connect patient to a PCP for outpatient management of DM and chronic conditions
[2017-02-28 14:22] VITALS: BP 108/67; PULSE 92; TEMP 98
--- NOTE | 2017-02-28 15:49 | DS ---
Physical Exam: SUBJECTIVE: Patient seen and examined at bedside. She had 2 episodes of diarrhea last night with some abdominal pain. Patient states that she took imodium later in the morning that made her feel better. Denies dizziness, chest pain, shortness of breath, nausea, vomiting, abdominal pain. OBJECTIVE: Vital Signs Period Temp Pulse Resp BP Sys/Saavedra Pulse Ox Last 24 Hr 97.9 F-98.3 F 82-98 16-20 108-144/67-87 98-98 PHYSICAL EXAM GENERAL: The patient is awake, alert, and fully oriented, in no acute distress. HEAD: Normal with no signs of trauma. EYES: PERRL, extraocular movements intact, sclera anicteric, conjunctiva clear. ENT: Ears normal, nares patent, oropharynx clear without exudates, moist mucous membranes. NECK: Trachea midline, full range of motion, supple. LUNGS: Breath sounds equal, clear to auscultation bilaterally, no wheezes, no crackles, no accessory muscle use. HEART: Regular rate and rhythm, S1, S2 without murmur, rub or gallop. ABDOMEN: Obese, Soft, nontender, nondistended, normoactive bowel sounds, no guarding, no rebound, no hepatosplenomegaly, no masses. EXTREMITIES: 2+ pulses, warm, well-perfused, no edema. NEUROLOGICAL: Cranial nerves II through XII grossly intact. Normal speech, gait not observed. PSYCH: Normal mood, normal affect. SKIN: Warm, dry, normal turgor, no rashes or lesions noted. LABS Laboratory Results - last 24 hr 02/27/17 02/27/17 02/27/17 16:52 17:30 20:24 WBC RBC Hgb Hct MCV MCH MCHC RDW Plt Count MPV Sodium 142 Potassium 4.4 D Chloride 110 H Carbon Dioxide 22 Anion Gap 10 BUN 15 D Creatinine 1.1 H D POC Glucometer 255 292 Random Glucose 270 H D Calcium 7.9 L 02/28/17 02/28/17 02/28/17 05:24 08:06 08:06 WBC 7.1 RBC 3.94 Hgb 11.3 Hct 34.7 MCV 88.2 MCH 28.8 MCHC 32.6 RDW 12.8 Plt Count 234 MPV 7.6 Sodium 141 Potassium 3.9 Chloride 111 H Carbon Dioxide 20 L Anion Gap 10 BUN 12 Creatinine 0.6 D POC Glucometer 207 Random Glucose 221 H Calcium 8.6 02/28/17 11:12 WBC RBC Hgb Hct MCV MCH MCHC RDW Plt Count MPV Sodium Potassium Chloride Carbon Dioxide Anion Gap BUN Creatinine POC Glucometer 179 Random Glucose Calcium HOSPITAL COURSE: Date of Admission:02/26/17 This is a 36 year old female with a past medical history of irritable bowel syndrome and diabetes mellitus presented to the ED with the complaint of 1 day of fatigue, abdominal pain, nausea and vomiting. She has a history of admissions for diabetic ketoacidosis in [place], where she is from. Patient recently moved to [place] 3 months ago and had not gotten a new primary care physician. Patient was running out of her insulin and so she decided to decrease her dose the night before arriving to the hospital. In the emergency department, it was found that the patient had an elevated anion gap, low bicarbonate levels, glucosuria, ketonemia and ketonuria and a high serum glucose level. Patient was diagnosed with diabetic ketoacidosis and transferred to the intensive care unit for management. Patient was given a bolus of normal saline in the emergency room. Patient was started on an insulin drip and continuous fluids. Within 1 day, patient's anion gap began to close and patient was transitioned to oral, long acting insulin and given a regular diet. Patient tolerated the diet well and was transferred to [facility] for one more day for monitoring. Patient improved overnight and was discharged home with a prescription for long acting insulin, insulin sliding scale coverage, and instructions to follow up with her primary care physician in 1 week. Date of Discharge: 02/28/17 Minutes to complete discharge: 30 Discharge Summary Reason For Visit: DIABETIC KETOACIDOSIS Current Active Problems DKA (diabetic ketoacidoses) (Acute) Dehydration (Acute) Diabetes (Chronic) Condition: Stable - Instructions Diet, Activity, Other Instructions: You were admitted to the hospital for the treatment of diabetic ketoacidosis. Medical Recommendations: 1. See your doctor right away if you experience feeling very thirsty, if you experience nausea, vomiting, belly pain, fatigue, weight loss, or having breath that smells fruity. See your doctor if your blood sugar levels keep being higher than they should be. 2. Measure your blood sugar with your glucometer before each meal and before bed. Document your readings and how much insulin you inject with and bring this to your doctors appointment early next week. Your goal sugars should be between 70-125. This may not be attainable in your first week, it can take some time. 3. Take Lantus 35 units twice a day 4. Take additional insulin on a sliding scale based on your blood sugars: Blood Sugar Dose 101-150 0 151-200 2 201-250 4 251-300 6 301-350 8 351-400 10 >400 Come to the Emergency Room 5. Make sure to adhere to a diabetic diet 6. If you experience further, prolonged abdominal pain, please return to the emergency room for evaluation. 7. Make sure to follow up with a primary care physician within 1 week of discharge. [address], [address] [place] [address] Disposition: HOME - Home Medications Comprehensive Discharge Medication List: Ambulatory Orders Lancets/Blood Glucose Strips [Fora [id number] Strp-Lnct] 1 each MC DAILY # 100 combo..pkg 02/27/17 Syringe,Needle,Insuln,Safe,1Ml [Easy Touch Fliplock Insulin] 1 each MC BID #100 disp.syrin 02/27/17 Insulin (LOG) Aspart [NovoLOG -] See Protocol SQ DAILY #1 vial 02/28/17 Insulin Glargine,Hum.rec.anlog [Lantus (nf)] 35 units SQ BID #1 vial 02/28/17 Miscellaneous Medical Supply [Glucometer Device] 1 each SQ ASDIR #1 kit This patient is new to me today: No Emergency Visit: No Critical Care patient: No - Discharge Referral Referred to [facility] Med [facility] No
== END 2017-02-28 17:22 | disposition home or self-care (01) | DRG 420 ==
LOC: JER 09:53 → JERBED 11:50 → JICU 12:35 → J6S 23:06
PROVIDERS: ADMIT Internal Medicine; ATTEND Internal Medicine
DX: E10.10 Type 1 diabetes mellitus with ketoacidosis without coma (principal); E83.51 Hypocalcemia; G62.9 Polyneuropathy, unspecified; Z91.14 Patient's other noncompliance with medication regimen; I95.1 Orthostatic hypotension; Z79.4 Long term (current) use of insulin; E86.0 Dehydration; K58.0 Irritable bowel syndrome with diarrhea
CPT/HCPCS: 36415; 36600; 71010-TC; 80048; 80053; 81003; 81015; 82009; 82375; 82550; 82803; 83036; 83050; 83605; 83690; 83735; 84100; 84484; 84702; 84703; 85025; 85027; 87040; 87086; 93005; 93010; 99285-25; J1644

== ENCOUNTER 2017-10-01 16:36 | Observation (INO) | payer OTHER ==
[2017-10-01 16:57] VITALS: BMI 40.7
--- NOTE | 2017-10-01 16:57 | PDOC ---
History of Present Illness - General Chief Complaint: Blood Sugar Problem Stated Complaint: HYPOGLYCEMIA Time Seen by Provider: 10/01/17 16:57 - History of Present Illness Initial Comments: 37 year old female with a history of irritable bowel syndrome and IDDM presenting with lethargy in the setting of severe hypoglycemia. She unintentionally took twice her short acting insulin (10units twice at approximately 11:30 AM) and was found to be lethargic and sleepy by EMS with a FS of 20s then given two amps of d50 which did not improve her mental status at which point she was started on 100 mls of D10. Her Sugars improved to 90s and she presented to the ED cold (temp 94) with an FS of 68. She denies any acute symptoms but simply felt lethargic. She was responsive, oriented, and able to converse. She denies SI/HI and adamantly admits that this was an accidental overdose. In fact she was at her son's graduation earlier. She also admits to not eating much because of how busy she was today. She has never overdosed in the past. She does admit to some dysuria and nausea over the past week. She does have chronic diarrhea in the setting of a working diagnosis of IBS and is pending endoscopy. Denies fevers, chills, vomiting, SOB, cough, chest pain, or other symptoms. 10/01/17 16:58 Past History - Past Medical History Allergies/Adverse Reactions: Allergies Allergy/AdvReac Type Severity Reaction Status Date / Time Penicillins Allergy Verified 10/01/17 16:49 Home Medications: Ambulatory Orders Miscellaneous Medical Supply [Glucometer Device] 1 each SQ ASDIR #1 kit Furosemide [Lasix -] 40 mg PO DAILY 10/01/17 Hydrochlorothiazide [Hctz -] 12.5 mg PO DAILY 10/01/17 Lisinopril 5 mg PO DAILY 10/01/17 Enalapril Maleate 5 mg PO DAILY 10/02/17 Insulin Aspart [Novolog Flexpen] 8 unit SQ TID #1 insuln.pen 10/02/17 Insulin Glargine,Hum.rec.anlog [Lantus (10mL VIAL) -] 20 units SQ BID #1 vial Lancets/Blood Glucose Strips [Fora [id number] Strp-Lnct] 1 each MC DAILY # 5 combo..pkg 10/02/17 Potassium Chloride 20 meq PO TID 10/02/17 Silver Sulfadiazine 1% Top Cr [Silvadene -] 1 applic TP DAILY 10/02/17 Syringe,Needle,Insuln,Safe,1Ml [Easy Touch Fliplock Insulin] 1 each MC BID #100 disp.syrin 10/02/17 levoFLOXacin [Levaquin -] 500 mg PO DAILY@0600 #9 tablet 10/02/17 COPD: No Diabetes: Yes - Suicide/Smoking/Psychosocial Hx Smoking History: Never smoked Have you smoked in the past 12 months: No Cigars Per Day: 0 Information on smoking cessation initiated: No Hx Alcohol Use: No Drug/Substance Use Hx: No Substance Use Type: None Review of Systems - Review of Systems Constitutional: No: Chills, Diaphoresis, Fever HEENTM: Yes: Blurred Vision. No: Recent change in vision, Double Vision Respiratory: No: Cough, Shortness of Breath, Wheezing, Productive cough Cardiac (ROS): Yes: Lightheadedness, Syncope. No: Chest Pain, Irregular Heart Rate ABD/GI: No: Constipated, Diarrhea, Nausea, Vomiting : No: Burning, Dysuria Musculoskeletal: No: Back Pain, Gout, Joint Pain Integumentary: No: Bruising, Erythema, Flushing, Lesions, Lumps Neurological: Yes: Weakness. No: Headache, Numbness, Paresthesia, Tingling, Tremors Psychiatric: No: Anxiety, Depression Endocrine: Yes: Increased Thirst Hematologic/Lymphatic: No: Anemia, Blood Clots *Physical Exam - Vital Signs Last Vital Signs Temp Pulse Resp BP Pulse Ox 82 18 139/93 98 10/01/17 16:50 10/01/17 16:50 10/01/17 16:50 10/01/17 16:50 - Physical Exam General Appearance: Yes: Nourished, Appropriately Dressed. No: Apparent Distress HEENT: positive: EOMI, HANG, Normal ENT Inspection, Normal Voice, Other (dry mucous membranes) Neck: positive: Trachea midline, Normal Thyroid, Supple. negative: Tender, Rigid Respiratory/Chest: positive: Lungs Clear, Normal Breath Sounds. negative: Chest Tender, Respiratory Distress, Accessory Muscle Use Cardiovascular: positive: Regular Rhythm, Regular Rate Gastrointestinal/Abdominal: positive: Normal Bowel Sounds, Flat, Soft. negative : Tender Lymphatic: negative: Adenopathy, Tenderness Musculoskeletal: positive: Normal Inspection. negative: CVA Tenderness Extremity: positive: Normal Capillary Refill, Normal Inspection, Normal Range of Motion Integumentary: positive: Normal Color, Dry, Warm Neurologic: positive: Fully Oriented, Alert, Normal Mood/Affect, Normal Response , Motor Strength / ED Treatment Course - LABORATORY CBC & Chemistry Diagram: 10/02/17 06:05 10/02/17 06:05 Medical Decision Making - Medical Decision Making 37 year old female presenting with hypoglycemia with episode of unresponsivness after accidentla overdose with short acting insulin. Sugars stable in 130s after 2x D50 and 100mL D10 so will will admit for observation. Vitals remain stable and overlal patient is alert and responsive. 10/04/17 14:03 *DC/Admit/Observation/Transfer Diagnosis at time of Disposition: Hypoglycemia - Discharge Dispostion Disposition: HOME Condition at time of disposition: Improved - Prescriptions - Referrals - Patient Instructions - Post Discharge Activity
[2017-10-01] MEDS ORDERED: DEXTROSE 50%-WATER 25 GM/50 ML DISP.SYRIN ONE (17:26)
[2017-10-01] MEDS ORDERED: DEXTROSE 50%-WATER - 25 GM/50 ML VIAL IVPUSH ONE (17:26)
--- NOTE | 2017-10-01 17:28 | PDOC ---
Attending Attestation - [facility] HPI: 10/01/17 18:04 The patient is a 37 year old female brought via EMS and presenting with her family, with a significant past medical history of diabetes and IBS, who presents to the emergency department complaining of overdosing on insulin today. She reports that she usually takes 35 units of insulin in the morning and 10 units with meals during the day. She notes that she missed her dose last night and took it this morning. She also took 10 units with breakfast this morning. She didnt remember if she took the 10 units of insulin with breakfast and took another 10 units. The patient denies chest pain, shortness of breath, headache or dizziness. Denies fever, chills, nausea, vomiting, diarrhea and constipation. Denies dysuria, frequency, urgency and hematuria. Allergies: Penicillin Past surgical history: None Reported Social History: No alcohol, tobacco or drug use reported - Physicial Exam PE: 10/01/17 18:04 Constitutional: (+) Mildly lethargic. No acute distress. Head: Normocephalic. Atraumatic Eyes: (+) 2mm pupils. PERRL. EOMI. Conjunctivae are not pale. ENT: Mucous membranes are moist and intact. Posterior pharynx without exudates or erythema. Uvula midline. Neck: Supple. Full ROM. No lymphadenopathy. Cardiovascular: Regular rate. Regular rhythm. S1, S2 regular. Distal pulses are 2+ and symmetric. Pulmonary/Chest: No evidence of respiratory distress. Clear to auscultation bilaterally No wheezing, rales or rhonchi. Abdominal: (+) Suprapubic tenderness Soft and non-distended. There is no tenderness. No rebound, guarding or rigidity. No organomegaly. No palpable masses. Good bowel sounds. Back: No CVA tenderness. Musculoskeletal: No edema. No cyanosis. No clubbing. Full range of motion in all extremities. Nocalf tenderness. Radial/pedal pulses are intact and 2+ bilaterally Skin: Skin is warm and dry. No petechiae. No purpura. Neurological: Alert and oriented to person, place, and time. Cranial nerves II -XII are grossly intact. Normal speech. Strength is grossly symmetric. No sensory deficits. Psychiatric: Good eye contact. Normal interaction, affect and behavior. <Kalyan Reynoso - Last Filed: 10/01/17 17:58> - Resident Resident Name: Heather Tamez - ED Attending Attestation I have performed the following: I have examined & evaluated the patient, The case was reviewed & discussed with the resident, I agree w/resident's findings & plan, Exceptions are as noted - Critical Care Time Total Critical Care Time: 30 Critical Care Statement: The care of this patient involved high complexity decision making to prevent further life threatening deterioration of the patient 's condition and/or to evaluate & treat vital organ system(s) failure or risk of failure. - Medical Decision Making 10/01/17 17:39 I, Dr. Gricel Hill, DO, attest that this document has been prepared under my direction and personally reviewed by me in its entirety. I further attest, that it accurately reflects all work, treatment, procedures and medical decision -making performed by me. 10/01/17 17:39 37yo female with hx of DM - on insulin with recurrent hypoglycemia today -pt accidentally overdosed herself on insulin at 11am today -recurrent hypoglcemia -28 for medics - received D50, dropped again and started on D10 - received 250cc -in ED glucose 68- will give D50 -needs Q1 hour glucose checks -gave herself 35 units of long acting and 30units short acting all this AM -will check labs, cultures, ua -will need obs for hypoglycemia 10/01/17 20:33 uti on labs insulin overdose requiring multiple doses of dextrose will need obs iv abx ordered 10/01/17 20:34 Dr. Estrada is PMD - covered by [employer] 10/01/17 21:12 [facility] <Gricel Hill - Last Filed: 10/01/17 21:13> Heart Score/ECG Review - ECG Intrepretation Comment:: 10/01/17 19:56 sinus at 87, LVH, L ghotra axis, nl interval, no acute st/t wave findings <Gricel Hill - Last Filed: 10/01/17 21:13>
[2017-10-01 18:58] LABS: BASO % 0.8 % (0-2.0); EOS % 0.3 % (0-4.5); HEMATOCRIT 40.1 % (32.4-45.2); LYMPH % 9.7 % (8-40); MCH 29.3 pg (25.7-33.7); MCHC 32.5 g/dl (32.0-36.0); MEAN CELL VOLUME 90.3 fl (80-96); MEAN PLT VOLUME 8.2 fl (7.5-11.1); MONO % 2.9 % (3.8-10.2); NEUT % 86.3 % (42.8-82.8); PLATELET COUNT 312 K/MM3 (134-434); RBC 4.44 M/mm3 (3.60-5.2); RDW 12.9 % (11.6-15.6); WHITE BLOOD COUNT 10.1 K/mm3 (4.0-10.0)
[2017-10-01 19:10] LABS: INR 0.98 (0.82-1.09); PROTHROMBIN TIME (PATIENT) 11.1 SEC (9.7-13.0)
[2017-10-01 19:56] LABS: URINE APPEARANCE CLOUDY; URINE BILIRUBIN NEGATIVE (<2.0 mg/dL); URINE COLOR YELLOW; URINE GLUCOSE (UA) 3+ (NEGATIVE); URINE KETONE NEGATIVE (NEGATIVE); URINE NITRITE NEGATIVE (NEGATIVE); URINE PROTEIN NEGATIVE (NEGATIVE); URINE UROBILINOGEN NEGATIVE mg/dL (0.2-1.0)
[2017-10-01 20:01] LABS: URINE LEUK ESTERASE 3+ (NEGATIVE)
[2017-10-01 20:02] LABS: EPI CELLS RARE /HPF (FEW); URINE BACTERIA RARE /hpf (NONE SEEN); URINE MUCUS RARE
[2017-10-01 20:28] LABS: COCAINE, UR NEGATIVE ng/ml (CUTOFF=300); METHADONE, UR NEGATIVE ng/ml (CUTOFF=300); OPIATES, URI NEGATIVE ng/ml (CUTOFF=300); PHENCYCLIDINE,URINE NEGATIVE ng/ml (CUTOFF=25); URINE AMPHETAMINES NEGATIVE ng/ml (CUTOFF=500); URINE BARBITURATES NEGATIVE ng/ml (CUTOFF=200); URINE BENZODIAZEPINES NEGATIVE ng/ml (CUTOFF=200)
[2017-10-01] MEDS ORDERED: CIPROFLOXACIN 400 MG/D5W 400 MG/200 ML IVPB IVPB ONE (20:30)
[2017-10-01 20:49] LABS: ALBUMIN 3.2 g/dl (3.4-5.0); ALK PHOS 124 U/L (45-117); ANION GAP 8 (8-16); BILIRUBIN,TOTAL 0.4 mg/dL (0.2-1.0); BLOOD UREA NITROGEN 14 mg/dL (7-18); CALCIUM 8.3 mg/dL (8.5-10.1); CHLORIDE 111 mmol/L (98-107); CO2 21 mmol/L (21-32); CREATININE 0.5 mg/dL (0.55-1.02); GLUCOSE,RANDOM 220 mg/dL (74-106); MAGNESIUM 1.8 mg/dL (1.8-2.4); POTASSIUM 4.5 mmol/L (3.5-5.1); SGPT/ALT 24 U/L (12-78); SODIUM 140 mmol/L (136-145); TOT PROT 6.8 g/dl (6.4-8.2)
[2017-10-01 20:51] LABS: SGOT/AST 21 U/L (15-37)
--- NOTE | 2017-10-01 21:06 | HP ---
CHIEF COMPLAINT: Insulin overdose PCP: Dr. Estrada HISTORY OF PRESENT ILLNESS: 37 yo woman with pmh of Type 1 IDDM, chronic diarrhea and diabetic nephropathy who presents after episode of hypoglycemia this AM to 28 after taking 35units of Basaglar and 30 units of novolog in AM. Pt states that she missed her nightly dose of 35 units of Basaglar yesterday and instead took it at 9AM this AM. She then took 10units of novolog with her breakfast, noted her sugars were elevated in 300s, took an additional 10 units of novolog and then a third dose of 10units around 11AM. Pt she returned from a brief graduation event for her son, felt fatigued and diaphoretic and went to lie down. Pt was found to be unresponsive and EMS was activated. Upon arrival finger stick was 28 in field, pt unresponsive; EMS administered D50, however due to low blood sugar again, started a D10 gtt. Pt regained consciousness in bathroom and was brought into [facility]. Pt standard insulin regimen includes 10 units of novolog with meals and 35 units of basaglar at bedtime (per patient; 35units of basaglar BID per pharmacy). Pt with hx of poor dietary compliance and multiple hospitalizations for DKA, most recently at [facility] in 02/2017. Pt states her shim plug cutter is Dr. Lloyd, who she was scheduled to see today. Her most recent A1C was two weeks ago, noted to be 10. Pt has not established care with a biology faculty member or opthalmologist, as she recently moved from [place] to [place] in fall of last year. In addition to hypoglycemia, pt has also been complaining of 3-4 days of dysuria , fatigue and generalized headaches. Pt endorses prior hx of UTIs, most recently 9-10 months ago for which she received oral abx tx. She additionally endorses one year of non-bloody, persistent diarrhea, exacerbated by large meals (10-15 watery BM with crampy abdominal pain per day) beginning one year ago after hospitalization in [place] for DKA. During this admission, pt received abx at the time. Pt denies any other GI symptoms. Denies any recent travel or sick contacts. Pt also endorses chronic BL foot numbness in stocking distribution. Pt denies f/c/n/v, vision changes, chest pain, cough, SOB, ab pain, new rashes, FNDs. Pt also endorses R sided flank pain. ER course was notable for: (1)Finger stick 68 in ED, received D50 amp (2)UA 3+ glucose, 3+ leuk esterase, 220 WBCs (3)Neg utox; blood, urine cultures sent; received levaquin x1 (4) temp 94 on presentation to ED; repeat BGM at 7PM 130~ Recent Travel: None PAST MEDICAL HISTORY: IBS IDDM2 PAST SURGICAL HISTORY: x5 Social History: Smoking: Denies Alcohol: Denies Drugs: Denies Family History: [place] Allergies Penicillins Allergy (Verified 10/01/17 16:49) HOME MEDICATIONS: Home Medications Medication Instructions Recorded Lancets/Blood Glucose Strips [Fora 1 each MC DAILY #100 combo..pkg 02/27/17 [id number] Strp-Lnct] Syringe,Needle,Insuln,Safe,1Ml 1 each MC BID #100 disp.syrin 02/27/17 [Easy Touch Fliplock Insulin] Insulin (LOG) Aspart [NovoLOG -] See Protocol SQ DAILY #1 vial 02/28/17 Insulin Glargine,Hum.rec.anlog 35 units SQ BID #1 vial 02/28/17 [Lantus (nf)] Miscellaneous Medical Supply 1 each SQ ASDIR #1 kit 02/28/17 [Glucometer Device] REVIEW OF SYSTEMS CONSTITUTIONAL: +generalized weakness Absent: fever, chills, diaphoresis, malaise, loss of appetite, weight change HEENT: Absent: rhinorrhea, nasal congestion, throat pain, throat swelling, difficulty swallowing, mouth swelling, ear pain, eye pain, visual changes CARDIOVASCULAR: Absent: chest pain, syncope, palpitations, irregular heart rate, lightheadedness , peripheral edema RESPIRATORY: Absent: cough, shortness of breath, dyspnea with exertion, orthopnea, wheezing, stridor, hemoptysis GASTROINTESTINAL: + chronic diarrhea Absent: abdominal pain, abdominal distension, nausea, vomiting, constipation, melena, hematochezia GENITOURINARY: Absent: dysuria, frequency, urgency, hesitancy, hematuria, flank pain, genital pain MUSCULOSKELETAL: R sided back pain + Absent: myalgia, arthralgia, joint swelling, neck pain SKIN: Absent: rash, itching, pallor HEMATOLOGIC/IMMUNOLOGIC: Absent: easy bleeding, easy bruising, lymphadenopathy, frequent infections ENDOCRINE: + Hyper/hypoglycemic Absent: unexplained weight gain, unexplained weight loss, heat intolerance, cold intolerance NEUROLOGIC: +headache, Absent: focal weakness or paresthesias, dizziness, unsteady gait, seizure, mental status changes, bladder or bowel incontinence PSYCHIATRIC: Absent: anxiety, depression, suicidal or homicidal ideation, hallucinations. PHYSICAL EXAMINATION Vital Signs - 24 hr 10/01/17 10/01/17 16:50 17:07 Temperature 99.4 F Pulse Rate 82 Respiratory 18 Rate Blood Pressure 139/93 O2 Sat by Pulse 98 Oximetry (%) GENERAL: Middle aged woman, Awake, alert, and fully oriented, in no acute distress. HEAD: Normal with no signs of trauma. EYES: Pupils equal, round and reactive to light, extraocular movements intact, sclera anicteric, conjunctiva clear. No lid lag. No retinopathy appreciable on opthalmologic exam. EARS, NOSE, THROAT: Ears normal, nares patent, oropharynx clear without exudates. Moist mucous membranes. NECK: Large hyperpigmented patch on R neck with lesion from prior bx. Normal range of motion, supple without lymphadenopathy, JVD, or masses. LUNGS: Breath sounds equal, clear to auscultation bilaterally. No wheezes, and no crackles. No accessory muscle use. HEART: Regular rate and rhythm, normal S1 and S2 without murmur, rub or gallop. ABDOMEN: Prior surgical scars from C-sections. Soft, nontender, not distended, normoactive bowel sounds, no guarding, no rebound, no masses. No hepatomegaly or splenomegaly. MUSCULOSKELETAL: Normal range of motion at all joints. No bony deformities or tenderness. + R CVA tenderness. UPPER EXTREMITIES: 2+ pulses, warm, well-perfused. No cyanosis. No clubbing. No peripheral edema. LOWER EXTREMITIES: 1+ DP/PT pulses BL, warm, well-perfused, trace edema BL. No calf tenderness. NEUROLOGICAL: Cranial nerves II-XII intact. Normal speech. Gait not evaluated. Decreased sensation to light touch in stocking distribution up to ankles BL. 4/ 5 flex/extension at R hip, 4/5 dorsi/plantarflexion at R foot. All other motor and sensory groups normal. PSYCHIATRIC: Cooperative. Good eye contact. Appropriate mood and affect. Laboratory Results - last 24 hr CBC, BMP 10/01/17 18:22 10/01/17 10/01/17 10/01/17 17:23 18:22 18:22 WBC 10.1 H D RBC 4.44 Hgb 13.0 D Hct 40.1 D MCV 90.3 MCH 29.3 MCHC 32.5 RDW 12.9 Plt Count 312 D MPV 8.2 Absolute Neuts (auto) 8.7 Neutrophils % 86.3 H Lymphocytes % 9.7 Monocytes % 2.9 L Eosinophils % 0.3 D Basophils % 0.8 Nucleated RBC % 0 PT with INR 11.10 INR 0.98 Sodium Potassium Chloride Carbon Dioxide Anion Gap BUN Creatinine Creat Clearance w eGFR POC Glucometer [id number] Random Glucose Lactic Acid Calcium Total Bilirubin AST ALT Alkaline Phosphatase Total Protein Albumin Urine Color Urine Appearance Urine pH Ur Specific [place] Urine Protein Urine Glucose (UA) Urine Ketones Urine Blood Urine Nitrite Urine Bilirubin Urine Urobilinogen Ur Leukocyte Esterase Urine WBC (Auto) Urine RBC (Auto) Ur Epithelial Cells Urine Bacteria Urine Mucus Opiates Screen Methadone Screen Barbiturate Screen Phencyclidine Screen Ur Amphetamines Screen MDMA (Ecstasy) Screen Benzodiazepines Screen Cocaine Screen U Marijuana (THC) Screen 10/01/17 10/01/17 10/01/17 18:22 18:22 18:47 WBC RBC Hgb Hct MCV MCH MCHC RDW Plt Count MPV Absolute Neuts (auto) Neutrophils % Lymphocytes % Monocytes % Eosinophils % Basophils % Nucleated RBC % PT with INR INR Sodium Cancelled Potassium Cancelled Chloride Cancelled Carbon Dioxide Cancelled Anion Gap Cancelled BUN Cancelled Creatinine Cancelled Creat Clearance w eGFR Cancelled POC Glucometer [phone] Random Glucose Cancelled Lactic Acid 1.3 Calcium Cancelled Total Bilirubin Cancelled AST Cancelled ALT Cancelled Alkaline Phosphatase Cancelled Total Protein Cancelled Albumin Cancelled Urine Color Urine Appearance Urine pH Ur Specific [place] Urine Protein Urine Glucose (UA) Urine Ketones Urine Blood Urine Nitrite Urine Bilirubin Urine Urobilinogen Ur Leukocyte Esterase Urine WBC (Auto) Urine RBC (Auto) Ur Epithelial Cells Urine Bacteria Urine Mucus Opiates Screen Methadone Screen Barbiturate Screen Phencyclidine Screen Ur Amphetamines Screen MDMA (Ecstasy) Screen Benzodiazepines Screen Cocaine Screen U Marijuana (THC) Screen 10/01/17 10/01/17 19:50 20:00 WBC RBC Hgb Hct MCV MCH MCHC RDW Plt Count MPV Absolute Neuts (auto) Neutrophils % Lymphocytes % Monocytes % Eosinophils % Basophils % Nucleated RBC % PT with INR INR Sodium Potassium Chloride Carbon Dioxide Anion Gap BUN Creatinine Creat Clearance w eGFR POC Glucometer Random Glucose Lactic Acid Calcium Total Bilirubin AST ALT Alkaline Phosphatase Total Protein Albumin Urine Color Yellow Urine Appearance Cloudy Urine pH 5.0 Ur Specific [place] 1.012 Urine Protein Negative Urine Glucose (UA) 3+ H Urine Ketones Negative Urine Blood 1+ H Urine Nitrite Negative Urine Bilirubin Negative Urine Urobilinogen Negative Ur Leukocyte Esterase 3+ H Urine WBC (Auto) 220 Urine RBC (Auto) 10 Ur Epithelial Cells Rare Urine Bacteria Rare Urine Mucus Rare Opiates Screen Negative Methadone Screen Negative Barbiturate Screen Negative Phencyclidine Screen Negative Ur Amphetamines Screen Negative MDMA (Ecstasy) Screen Negative Benzodiazepines Screen Negative Cocaine Screen Negative U Marijuana (THC) Screen Negative Urine and blood cultures pending No imaging EKG - Rate of 90, LAD, regular rate, No ST or T-wave changes, possible LVH ASSESSMENT/PLAN: 37 yo woman with pmh of Type 1 IDDM, chronic diarrhea and diabetic nephropathy who presents after episode of hypoglycemia this AM to 28 after taking 35 units of Basaglar and 30 units of novolog in AM. #Hypoglycemia - - BGM q4h - hold basal insulin in setting of active infection and hypoglycemic episode; SS coverage for now - Endo consult - Dr. Lloyd - PO hydration - confirm insulin regimen in AM (Basaglar qHs vs BID?) #UTI/pyelonephritis - UA + leuk esterase, WBC 220 - f/u blood and urine cultures - cipro qdaily - trend fever, wbc count - renal sonogram - ID consult #Chronic Diarrhea - one year; stool cultures taken two weeks ago - c diff ag and toxin - avoid antimotility agents for now until infection r/o - stool culture - O+P - fecal WBC - GI consult #HTN? - confirm HTN meds in AM with Dr. Estrada - vitals q4h #DM1 - A1c two weeks ago 10; - ISS - BGM q4h - Confirm home insulin regimen in AM PPX HSQ FEN NS 75cc/hr Daily lytes Diabetic diet Plan discussed with attending, Dr. Mike Pace, PGY1 Visit type - Emergency Visit Emergency Visit: Yes Care time: The patient presented to the Emergency Department on the above date and was hospitalized for further evaluation of their emergent condition. - New Patient This patient is new to me today: Yes Date on this admission: 10/01/17 - Critical Care Critical Care patient: No Hospitalist Screening - Colonoscopy Questionnaire Colonoscopy Questionnaire: Colonoscopy Questionnaire - Patient: 50 - 75 years old and never had a screening colonoscopy: Unknown History of colon or rectal polyps, or CA: Unknown History of IBD, Crohn's disease or UC: Unknown History of abdominal radiation therapy as a child: Unknown - Relative: 1 with colon or rectal CA, or polyps at age 60 or younger: Unknown Colon or rectal CA diagnosed at age 45 or younger: Unknown Multiple relatives with colon or rectal CA: Unknown - Outcome: Screening Result: Negative Screen
--- NOTE | 2017-10-01 21:46 | PN ---
Teaching Attending Note Name of Resident: Solomon Pace ATTENDING PHYSICIAN STATEMENT I saw and evaluated the patient. I reviewed the resident's note and discussed the case with the resident. I agree with the resident's findings and plan as documented. SUBJECTIVE: Patient is a 37 year old woman with a history of penicillin allergy, diarrhea for 2 years, 5 C-sections and IDDM presenting with lethargy in the setting of severe hypoglycemia. She unintentionally took twice her short acting insulin ( 10units twice at approximately 11:30 AM) and was found to be lethargic and sleepy by EMS with a FS of 20s then given two amps of d50 which did not improve her mental status at which point she was started on 100 mls of D10. Her Sugars improved to 90s and she presented to the ED cold (temp 94) with an FS of 68. She denies any acute symptoms but simply felt lethargic. She was responsive, oriented, and able to converse. She denies SI/HI and adamantly admits that this was an accidental overdose. In fact she was at her son's graduation earlier. She also admits to not eating much because of how busy she was today. She has never overdosed in the past. She does admit to some dysuria and nausea over the past week. She does have chronic diarrhea in the setting of a working diagnosis of IBS and is pending EGD and colonoscopyy. Denies fevers, chills, vomiting, SOB , cough, chest pain, but has had right flank pain for 3 days. OBJECTIVE: Alert. Obese in no acute distress Vital Signs Period Temp Pulse Resp BP Sys/Saavedra Pulse Ox Last 24 Hr 99.4 F 82 18 139/93 98 HEENT: No Jaundice, eye redness or discharge, PERRLA, EOMI. Normocephalic, atraumatic. External ears are normal and hearing is grossly intact. No nasal discharge. Neck: Supple, nontender. No palpable adenopathy or thyromegaly. No JVD Chest: Good effort. Clear to auscultation and percussion. Heart: Regular. No S3, rub or murmur Abdomen: Not distended, soft, nontender and no HSM. No rebound or guarding. Normoactive bowel sounds. Ext: Peripheral pulses intact. No leg edema. Skin: Warm and dry. No petechiae, rash or ecchymosis. Neuro: Alert. Oriented x3. CN 2-12 grossly intact. Sensation decreased in lower legs and foot. DTR are symmetric. Home Medications Medication Instructions Recorded Lancets/Blood Glucose Strips [Fora 1 each MC DAILY #100 combo..pkg 02/27/17 [id number] Strp-Lnct] Syringe,Needle,Insuln,Safe,1Ml 1 each MC BID #100 disp.syrin 02/27/17 [Easy Touch Fliplock Insulin] Insulin (LOG) Aspart [NovoLOG -] See Protocol SQ DAILY #1 vial 02/28/17 Insulin Glargine,Hum.rec.anlog 35 units SQ BID #1 vial 02/28/17 [Lantus (nf)] Miscellaneous Medical Supply 1 each SQ ASDIR #1 kit 02/28/17 [Glucometer Device] Abnormal Lab Results 10/01/17 10/01/17 10/01/17 18:22 19:30 20:00 WBC 10.1 H D Neutrophils % 86.3 H Monocytes % 2.9 L Chloride 111 H Creatinine 0.5 L Random Glucose 220 H Calcium 8.3 L Alkaline Phosphatase 124 H Albumin 3.2 L Urine Glucose (UA) 3+ H Urine Blood 1+ H Ur Leukocyte Esterase 3+ H ASSESSMENT AND PLAN: 1. Pyelonephritis - Will treat with CIPRO 40 mg IV q 12 hours pending the result of urine and blood culture and also get an abdominal sonogram with focus on the kidneys. 2. DM/Hypoglycemia - may be related to excess insulin use in the setting of poor caloric intake. Will do sliding scale insulin coverage. Importance of eye care and foot care emphasized. 3. Chronic diarrhea - May be a manifestation of diabetic neuropathy/ gastropathy. GI consult. 4. DVT prophylaxis - Heparin 5000u sq tid. 5. Advance directives - Full code
[2017-10-01] MEDS ORDERED: ACETAMINOPHEN 325 MG TABLET (FP) PO PRN (22:48)
[2017-10-02] MEDS: SODIUM CHLORIDE 1,000 ML IV SCH ×2 (01:36→10:17)
[2017-10-02] MEDS: INSULIN SLIDING SCALE (NOVOLOG) 1 VIAL SQ SCH ×4 (06:53→16:35)
[2017-10-02 07:03] LABS: BASO % 0.9 % (0-2.0); EOS % 0.8 % (0-4.5); HEMOGLOBIN 11.6 GM/dL (10.7-15.3); MCH 29.9 pg (25.7-33.7); MCHC 33.2 g/dl (32.0-36.0); MEAN CELL VOLUME 89.9 fl (80-96); MEAN PLT VOLUME 7.7 fl (7.5-11.1); MONO % 5.2 % (3.8-10.2); NEUT % 74.1 % (42.8-82.8); PLATELET COUNT 288 K/MM3 (134-434); RBC 3.89 M/mm3 (3.60-5.2); RDW 13.1 % (11.6-15.6); WHITE BLOOD COUNT 9.6 K/mm3 (4.0-10.0)
[2017-10-02 08:37] LABS: CHLORIDE 107 mmol/L (98-107); POTASSIUM 3.8 mmol/L (3.5-5.1); SODIUM 139 mmol/L (136-145)
[2017-10-02 08:56] LABS: ALBUMIN 2.7 g/dl (3.4-5.0); ALK PHOS 101 U/L (45-117); ANION GAP 11 (8-16); BILIRUBIN,TOTAL 0.5 mg/dL (0.2-1.0); BLOOD UREA NITROGEN 12 mg/dL (7-18); CALCIUM 7.8 mg/dL (8.5-10.1); CO2 21 mmol/L (21-32); CREATININE 0.6 mg/dL (0.55-1.02); GLUCOSE,RANDOM 254 mg/dL (74-106); MAGNESIUM 1.8 mg/dL (1.8-2.4); PHOSPHOROUS 2.2 mg/dL (2.5-4.9); SGOT/AST 12 U/L (15-37); SGPT/ALT 21 U/L (12-78); TOT PROT 5.9 g/dl (6.4-8.2)
--- NOTE | 2017-10-02 09:34 | PN ---
Progress Note (short form) - Note Progress Note: ID Complains dysuria and right flank pain for 4-5 days No fever or chills Selected Entries 10/02/17 10/02/17 06:00 06:49 Temperature 98.4 F Pulse Rate 89 Respiratory 20 Rate Blood Pressure 112/72 Fraction of 99 Inspired Oxygen (FIO2) NAD Mild CVA tenderness right Laboratory Tests 10/01/17 10/01/17 10/01/17 18:22 19:30 20:00 WBC 10.1 H D Hgb 13.0 D Plt Count 312 D BUN Random Glucose 220 H Ur Leukocyte Esterase 3+ H Urine WBC (Auto) 220 Urine RBC (Auto) 10 10/02/17 06:05 WBC Hgb Plt Count BUN 12 Random Glucose 254 H Ur Leukocyte Esterase Urine WBC (Auto) Urine RBC (Auto) Assessment UTI pyelonephritis Remote history of PCN allergy as child no recall Plan Ceftriaxone dose now followed by Ronni at home for 10 days Cultures pending Loretta REDDY Problem List - Problems (1) UTI (urinary tract infection) Code(s): N39.0 - URINARY TRACT INFECTION, SITE NOT SPECIFIED (2) Diabetes Code(s): E11.9 - TYPE 2 DIABETES MELLITUS WITHOUT COMPLICATIONS
[2017-10-02] MEDS ORDERED: DEXTROSE 5%-WATER - 50 ML IVPB ONE (10:00)
[2017-10-02] MEDS ORDERED: CEFTRIAXONE 1 GM in DEXTROSE 5%-WATER - 50 ML IVPB SCH (10:00)
[2017-10-02] MEDS ORDERED: cefTRIAXone SODIUM 1 GM VIAL ONE (10:00)
[2017-10-02] MEDS ORDERED: INSULIN (NOVOLOG) ASPART 100 UNITS/ML 10ML VIAL ONE (10:08)
--- NOTE | 2017-10-02 10:20 | CONS ---
INFECTIOUS DISEASE CONSULTATION DATE OF CONSULTATION: DATE OF DICTATION: 10/02/2017 HISTORY OF PRESENT ILLNESS: This is a 37-year-old female, known insulin-dependent diabetic who I am asked to see after she was admitted with a hypoglycemic episode and lethargy. Incidentally noted was a urinalysis with many white cells. This 37-year-old insulin-dependent diabetic was found lethargic, and EMS found a blood sugar in her 20s and gave her D50. Her sugars improved, and she was brought to the emergency room where initially she was found to be hypothermic with a temperature of 94. Her only complaints were that she has been experiencing dysuria and pain in her right flank for 4-5 days. She had scheduled a doctor's appointment for this reason but had not yet had the appointment. Currently, she is feeling much better, sitting in bed, without complaints. She denies any abdominal pain, headaches, fevers, chills, night sweats. She was given a dose of a fluoroquinolone as she is PENICILLIN allergic by history, and when asked, states that there is a remote history of PENICILLIN allergy as a child, though she could not recall any specific details in this regard. CURRENT MEDICATIONS: Insulin. ALLERGIES: PENICILLIN. SOCIAL HISTORY: Nonsmoker. . Currently in school. Recent travel to [place] and [place]. No unusual hobbies, pets. HIV tested negative. FAMILY HISTORY: Noncontributory. REVIEW OF SYSTEMS: Respiratory: No cough or shortness of breath. Cardiac: No chest pain, palpitations, syncope. Gastrointestinal: Chronic diarrhea. No abdominal pain. No bleeding per rectum, vomiting. Genitourinary: As noted in history of present illness. PHYSICAL EXAMINATION: General: A pleasant, alert woman in no acute distress. Vital Signs: Weight 258 pounds. Temperature 98.4, pulse 89, blood pressure 112/72, respirations 20. T-max 99.4. Neck: Supple. Lungs: Clear to percussion and auscultation. Heart: S1, S2. Regular rhythm without audible murmur. Abdomen: Obese, soft, nontender. Positive bowel sounds. No organomegaly. Extremities: Revealed grade 3/10 right flank tenderness to percussion and with punch tenderness. DIAGNOSTIC DATA: The white count 10.1, hemoglobin 13, platelets 312. No left shift is present. BUN of 14, creatinine 0.5. Glucose of 220. Alkaline phosphatase 124, AST 21, bilirubin 0.4. Urinalysis: WBCs 220, RBCs 10, leukocyte esterase 3+. Toxicology screen negative. Two sets of blood cultures thus far no growth. Urine culture pending. ASSESSMENT: A 37-year-old female who presents with hypoglycemic episode, possibly on the basis of giving herself too much insulin. Incidentally noted are symptoms compatible with a urinary tract infection along with a urinalysis also suggesting a urinary infection. Clinically, may have pyelonephritis. She does not appear toxic at this time. Her blood cultures thus far are no growth. She has a remote history of PENICILLIN allergy. I am going to give her a gram of ceftriaxone now, followed by Keflex 750 mg b.i.d. for 10 days at discharge. HELEN CHARLES M.D. [id number]
--- NOTE | 2017-10-02 10:51 | CONSULT ---
Consult Consult Specialty:: Endocrinology Referred by:: Solomon Pace MD Reason for Consultation:: Hypoglycemia - History of Present Illness Chief Complaint: LOC History of Present Illness: This is a 37 year old female with a history of irritable bowel syndrome and IDDM who presented with lethargy in the setting of severe hypoglycemia. She forgot to take Basaglar the previous night so took 35 units in the morning instead of 25 she was prescribed because her blood sugar was in 300s with 10 units of Novolog. At around 11:15 she took another 10 units of Novolog as blood sugar was still 300s. She took another 10 units a few minutes later as she forgot she has taken it earlier. EMS called by family as pt became lethargic. Pt remembers waking up in the bathroom with the EMS. EMS found pt with a FS of 20s then given two amps of d50 which did not improve her mental status at which point she was started on 100 mls of D10. Her Sugars improved to 90s and she presented to the ED cold (temp 94) with an FS of 68. She denies any acute symptoms but simply felt lethargic. She was responsive, oriented, and able to converse. She denies SI/HI and adamantly admits that this was an accidental overdose. In fact she was at her son's graduation earlier. She also admits to not eating much because of how busy she was today. She has never overdosed in the past. C/O dysuria and nausea over the past week. She does have chronic diarrhea in the setting of a working diagnosis of IBS and is pending endoscopy. Currently feels good. Denies any complaints. - History Source History Provided By: Patient, Medical Record - Past Medical History ...LMP: 01/28/17 Endocrine: Yes: Diabetes Mellitus - Alcohol/Substance Use Hx Alcohol Use: No - Smoking History Smoking history: Never smoked Have you smoked in the past 12 months: No Home Medications - Allergies Allergies/Adverse Reactions: Allergies Allergy/AdvReac Type Severity Reaction Status Date / Time Penicillins Allergy Verified 10/01/17 16:49 - Home Medications Home Medications: Ambulatory Orders Lancets/Blood Glucose Strips [Fora [id number] Strp-Lnct] 1 each MC DAILY # 100 combo..pkg 02/27/17 Syringe,Needle,Insuln,Safe,1Ml [Easy Touch Fliplock Insulin] 1 each MC BID #100 disp.syrin 02/27/17 Insulin (LOG) Aspart [NovoLOG -] See Protocol SQ DAILY #1 vial 02/28/17 Insulin Glargine,Hum.rec.anlog [Lantus (nf)] 35 units SQ BID #1 vial 02/28/17 Miscellaneous Medical Supply [Glucometer Device] 1 each SQ ASDIR #1 kit Furosemide [Lasix -] 40 mg PO DAILY 10/01/17 Hydrochlorothiazide [Hctz -] 12.5 mg PO DAILY 10/01/17 Lisinopril 5 mg PO DAILY 10/01/17 Family Disease History - Family Disease History Family Disease History: Diabetes: Father Review of Systems - Review of Systems Constitutional: reports: No Symptoms Eyes: reports: No Symptoms HENT: reports: No Symptoms Neck: reports: No Symptoms Cardiovascular: reports: No Symptoms Respiratory: reports: No Symptoms Gastrointestinal: reports: No Symptoms Genitourinary: reports: No Symptoms Musculoskeletal: reports: No Symptoms Neurological: reports: No Symptoms Endocrine: reports: No Symptoms Hematology/Lymphatic: reports: No Symptoms Physical Exam Vital Signs: Vital Signs Temperature 98.1 F 10/02/17 10:00 Pulse Rate 98 H 10/02/17 10:00 Respiratory Rate 20 10/02/17 10:00 Blood Pressure 119/73 10/02/17 10:00 O2 Sat by Pulse Oximetry (%) 100 10/01/17 23:38 Constitutional: Yes: No Distress, Calm Eyes: Yes: Conjunctiva Clear, EOM Intact HENT: Yes: Atraumatic, Normocephalic Neck: Yes: Supple, Trachea Midline Cardiovascular: Yes: Regular Rate and Rhythm Respiratory: Yes: Regular, CTA Bilaterally Gastrointestinal: Yes: Normal Bowel Sounds, Soft Musculoskeletal: Yes: WNL Extremities: Yes: WNL Edema: No Neurological: Yes: Alert, Oriented Labs: CBC, BMP 10/02/17 06:05 10/02/17 06:05 Assessment/Plan AP: DM Hypoglycemia from unintentional overdosing of Insulin UTI BGM QACHS and 3 AM Start Levemir 15 units stat Novolog ss Coverage ACHS Discussed risk of hypoglycemia whenever short acting Insulin is taken less than 4 to 6 hrs apart. If blood sugar is >350 2hrs after taking short acting Insulin , she may take 3 to 4 more units of Insulin but not more than that. Pt verbalizes understanding. Will f/u
[2017-10-02] MEDS ORDERED: INSULIN (LEVEMIR) 100 UNITS/ML UNITS SQ ONE (10:55)
--- NOTE | 2017-10-02 11:53 | EKG ---
Test Reason : Blood Pressure : / mmHG Vent. Rate : 087 BPM Atrial Rate : 087 BPM P-R Int : 164 ms QRS Dur : 096 ms QT Int : 400 ms P-R-T Axes : 039 -22 011 degrees QTc Int : 481 ms POOR DATA QUALITY, INTERPRETATION MAY BE ADVERSELY AFFECTED NORMAL SINUS RHYTHM POSSIBLE LEFT ATRIAL ENLARGEMENT LEFT VENTRICULAR HYPERTROPHY PROLONGED QT ABNORMAL ECG WHEN COMPARED WITH ECG OF 26-FEB-2017 11:01, NO SIGNIFICANT CHANGE WAS FOUND Confirmed by ALIRIO DE LEON MD ([id number]) on 10/02/2017 11:53:23 AM Referred By: Confirmed By:ALIRIO DE LEON MD
[2017-10-02 15:12] VITALS: BP 131/80; PULSE 78; TEMP 98.2
--- NOTE | 2017-10-02 18:33 | DS ---
Physical Exam: Patient is comfortable, BS is controlled, patient was started on Levaquin po 500mg daily x 10 days , as per ID ok to discharge her on po Levaquin. Also Patient stated that she is allergic to PCN, Rocephin was stopped by the nurse. Follow with ur measurement supervisor and PMD. <Leidy Perez - Last Filed: 10/02/17 18:36> Physical Exam: SUBJECTIVE: Patient seen and examined at bedside. Explains that she took an extra dose of 10U novolog, which caused her to become hypoglycemic; causing her admission. On d/c, pt feeling well. Dispo plan went over in detail concerning medications and follow-up appointments. Denies GUPTA, fever, chills, SOB, chest pain, or changes in urinary function. OBJECTIVE: Vital Signs Period Temp Pulse Resp BP Sys/Saavedra Pulse Ox Last 24 Hr 98 F-98.8 F 78-100 20-20 112-138/72-89 100 PHYSICAL EXAM GENERAL: The patient is resting comfortably. awake, alert, and fully oriented, in no acute distress. HEAD: Normal with no signs of trauma. EYES: PERRL, extraocular movements intact, sclera anicteric, conjunctiva clear. ENT: Ears normal, nares patent, oropharynx clear without exudates, moist mucous membranes. NECK: Trachea midline, supple. + L lateral- discoloration, ulceration LUNGS: Breath sounds equal, clear to auscultation bilaterally, no wheezes, no crackles, no accessory muscle use. HEART: Regular rate and rhythm, S1, S2 without murmur, rub or gallop. ABDOMEN: Soft, obese, nontender, nondistended, normoactive bowel sounds, no guarding, no rebound EXTREMITIES: 2+ pt pulses, warm, well-perfused, trace pedal edema. NEUROLOGICAL: Cranial nerves II through XII grossly intact. +decreased sensation distal lower extremities. motor strength 4/5 lower extremities, 5/5 upper ext. PSYCH: Normal mood, normal affect. SKIN: Warm, dry, normal turgor LABS 10/01/17 10/01/17 17:23 18:22 WBC 10.1 H D Hgb 13.0 D Hct 40.1 D Plt Count 312 D Creatinine POC Glucometer 68.27291 Magnesium 10/01/17 10/02/17 10/02/17 19:30 06:05 06:05 WBC 9.6 Hgb 11.6 D Hct 35.0 Plt Count 288 Sodium 140 139 Potassium 4.5 3.8 BUN 14 12 Creatinine 0.5 L 0.6 POC Glucometer Random Glucose Magnesium 1.8 1.8 Total Protein 5.9 L Albumin 2.7 L Urinalysis 10/01/17 20:00 Urine Color Yellow Urine Appearance Cloudy Urine pH 5.0 Ur Specific [place] 1.012 Urine Protein Negative Urine Glucose (UA) 3+ H Urine Ketones Negative Urine Blood 1+ H Urine Urobilinogen Negative Ur Leukocyte Esterase 3+ H Urine WBC (Auto) 220 Urine RBC (Auto) 10 Ur Epithelial Cells Rare Urine Bacteria Rare Urine Mucus Rare BG 10/01/17 10/01/17 10/02/17 18:47 23:02 02:54 POC Glucometer 135.47484 335.81548 304 10/02/17 10/02/17 10/02/17 06:48 10:05 16:17 POC Glucometer 249 262 363 Microbiology 10/01/17 18:10 Blood - Peripheral Venous Blood Culture - Preliminary NO GROWTH OBTAINED AFTER 24 HOURS, INCUBATION TO CONTINUE FOR 4 DAYS. 10/01/17 18:10 Blood - Peripheral Venous Blood Culture - Preliminary NO GROWTH OBTAINED AFTER 24 HOURS, INCUBATION TO CONTINUE FOR 4 DAYS. 10/01/17: UCx - pending Imaging 10/01/17: CXR: no acute evidence of pulmonary disease 10/02/17: Renal sono: small simple cyst in the R renal upper pole measuring 1.2cm and a simple cyst in the left renal upper pole measuring 1.9cm. without evidence of hydronephrosis or obstructing stones incidentally noted partially distended gallbladder with suggestion of stones. HOSPITAL COURSE: Date of Admission:10/01/17 Date of Discharge: 10/02/17 Admit diagnosis: hypoglycemia 2/2 medication over administration 37 y/o F with PMH Type 1 IDDM, chronic diarrhea and diabetic nephropathy who presented to the ED after an episode of hypoglycemia with BG 28 after taking 35units of Basaglar and 30 units of novolog in the AM. As per pt, she missed her nightly dose of 35 units of Basaglar on the day prior, and instead took it at 9AM on day of admission. Pt subsequently took 10units of novolog with her breakfast, noted her sugars were elevated in 300s, so she took an additional 10 units and a third dose of 10 units around 11AM. Pt subsequently felt fatigued and diaphoretic and went to lie down. Pt was found to be unresponsive and EMS was activated. Upon arrival, finger stick was 28 in field, pt unresponsive; EMS administered D50, however due to continued low BG, started a D10 gtt. Pt regained consciousness in bathroom and was brought into [facility]. During this time, pt also with 3-4 days of dysuria. Has hx of recurrent UTIs. Also with chronic diarrhea (10-15 watery BM with crampy abdominal pain per day). Pt admitted for hypoglycemia 2/2 medication over administration. While pt was hospitalized, she was managed for the following: Hypoglycemia 2/2 medication over administration Pt with accidental insulin over administration. In field, with BG in 20's, however upon arrival to ED had improved into low 100's, and subsequently increased. Initially, pt's long acting agent was held, to avoid further hypoglycemia. Once stabilized, she was seen by endocrinology and given a stat dose of levemir 15U and was counseled on importance of recognizing hypoglycemia especially in cases where short acting insulin is taken less than 4-6 hrs apart. On d/c, pt feeling well with increased energy. Will be d/c on lantus 20U BID, novolog 8U TID upon rec of endocrine. She will f/u with endocrine in 1 wk as well . Educated on importance of keeping log of sugars. UTI Pt with suggestive UA. Blood cx (-) for 24 hrs, ucx pending. This result can be followed up as an outpatient . Pt also with dysuria for past 3-4 days. Initially tx with rocephin but refused by pt d/t past hx of PCN allergy as a child. For this reason, pt changed to levaquin by ID. d/c on 10 day course of levaquin 500mg PO qd. Discussed importance of f/u at PCP office to check EKG and specifically Qtc interval. Pt expressed verbal understanding Chronic diarrhea Pt with hx chronic diarrhea. Will f/u with GI as outpatient to determine whether needs scope to determine etiology. Discussed, pt already setting up appointment and has been in touch with GI office. Discoloration- lateral side L neck Encouraged to apply silver sulfadiazene to affected area (of past biopsy) and see PCP. Renal sono result Renal sono result discussed at length w/pt. States that she has always had gallstones since she was a child. Currently, asymptomatic. Can f/u with GI as outpatient, as well as nephro if needed concerning renal simple cysts . No evidence of hydronephrosis Minutes to complete discharge: 44 <Angeles Ayala - Last Filed: 10/02/17 20:30> Discharge Summary Current Active Problems Hypoglycemia (Acute) UTI (urinary tract infection) (Acute) - Home Medications Comprehensive Discharge Medication List: Ambulatory Orders Miscellaneous Medical Supply [Glucometer Device] 1 each SQ ASDIR #1 kit Furosemide [Lasix -] 40 mg PO DAILY 10/01/17 Hydrochlorothiazide [Hctz -] 12.5 mg PO DAILY 10/01/17 Lisinopril 5 mg PO DAILY 10/01/17 Enalapril Maleate 5 mg PO DAILY 10/02/17 Insulin Aspart [Novolog Flexpen] 8 unit SQ TID #1 insuln.pen 10/02/17 Insulin Glargine,Hum.rec.anlog [Lantus (10mL VIAL) -] 20 units SQ BID #1 vial Lancets/Blood Glucose Strips [Fora [id number] Strp-Lnct] 1 each MC DAILY # 5 combo..pkg 10/02/17 Potassium Chloride 20 meq PO TID 10/02/17 Silver Sulfadiazine 1% Top Cr [Silvadene -] 1 applic TP DAILY 10/02/17 Syringe,Needle,Insuln,Safe,1Ml [Easy Touch Fliplock Insulin] 1 each MC BID #100 disp.syrin 10/02/17 levoFLOXacin [Levaquin -] 500 mg PO DAILY@0600 #9 tablet 10/02/17 <Leidy Perez - Last Filed: 10/02/17 18:36> Reason For Visit: DIABETES MELLITUS Current Active Problems Hypoglycemia (Acute) UTI (urinary tract infection) (Acute) - Home Medications Comprehensive Discharge Medication List: Ambulatory Orders Miscellaneous Medical Supply [Glucometer Device] 1 each SQ ASDIR #1 kit Furosemide [Lasix -] 40 mg PO DAILY 10/01/17 Hydrochlorothiazide [Hctz -] 12.5 mg PO DAILY 10/01/17 Lisinopril 5 mg PO DAILY 10/01/17 Enalapril Maleate 5 mg PO DAILY 10/02/17 Insulin Aspart [Novolog Flexpen] 8 unit SQ TID #1 insuln.pen 10/02/17 Insulin Glargine,Hum.rec.anlog [Lantus (10mL VIAL) -] 20 units SQ BID #1 vial Lancets/Blood Glucose Strips [Fora [id number] Strp-Lnct] 1 each MC DAILY # 5 combo..pkg 10/02/17 Potassium Chloride 20 meq PO TID 10/02/17 Silver Sulfadiazine 1% Top Cr [Silvadene -] 1 applic TP DAILY 10/02/17 Syringe,Needle,Insuln,Safe,1Ml [Easy Touch Fliplock Insulin] 1 each MC BID #100 disp.syrin 10/02/17 levoFLOXacin [Levaquin -] 500 mg PO DAILY@0600 #9 tablet 10/02/17 <Angeles Ayala - Last Filed: 10/02/17 20:30> Condition: Improved - Instructions Diet, Activity, Other Instructions: You were in the hospital because you took an increased amount of insulin at home and your blood sugar dropped. While you were in the hospital, your blood sugar was monitored. You were seen by the measurement supervisor. While you were here, you also had a urinary tract infection and were seen by the infection specialist. Your visit You were seen by the endocrinology, medicine and infection teams Medications You may continue your home medications, however please note the following has changed concerning your diabetes regimen: 1) We have made the following changes as per your measurement supervisor. -Lantus 20 units twice a day -novolog 8 units TID before meals 2) Levaquin 500mg (1 pill) every day, for the next 9 days starting tomorrow () for your urinary infection. To complete a 10 day course. Care You may apply silver sulfadiezene cream (that you have at home) to the skin lesions on the left side of your neck. Please follow up on this with your primary doctor. Follow up -Please follow up with the following doctors: -Dr. Miramontes, your measurement supervisor - 1 week -Dr. Estrada - your primary care doc, this week. You will need additional EKG imaging while you are there since you are on Levaquin antibiotic. -Dr. Wilcox, a bar gauger and lubricator tender. (GI doctor) - 1 week. He will evaluate you for diarrhea as an outpatient If you develop shortness of breath, or chest pain, please go to the hospital. Referrals: Dash Peguero MD [Primary Care Provider] - 1 Week Kashif Wilcox MD [Staff Physician] - 1 Week Latrell Lloyd MD [Staff Physician] - 1 Week Disposition: HOME This patient is new to me today: Yes Date on this admission: 10/02/17 Emergency Visit: No Critical Care patient: No - Discharge Referral Referred to [facility] Yes Physician Referral: Dash Estrada MD ([facility]) <Angeles Ayala - Last Filed: 10/02/17 20:30>
--- NOTE | 2017-10-02 18:33 | PN ---
Teaching Attending Note Name of Resident: Angeles Ayala ATTENDING PHYSICIAN STATEMENT I saw and evaluated the patient. I reviewed the resident's note and discussed the case with the resident. I agree with the resident's findings and plan as documented. SUBJECTIVE: OBJECTIVE: Vital Signs Temperature 98.2 F 10/02/17 14:00 Pulse Rate 78 10/02/17 14:00 Respiratory Rate 20 10/02/17 14:00 Blood Pressure 131/80 10/02/17 14:00 O2 Sat by Pulse Oximetry (%) 100 10/01/17 23:38 CBCD WBC 9.6 K/mm3 (4.0-10.0) 10/02/17 06:05 RBC 3.89 M/mm3 (3.60-5.2) 10/02/17 06:05 Hgb 11.6 GM/dL (10.7-15.3) D 10/02/17 06:05 Hct 35.0 % (32.4-45.2) 10/02/17 06:05 MCV 89.9 fl (80-96) 10/02/17 06:05 MCHC 33.2 g/dl (32.0-36.0) 10/02/17 06:05 RDW 13.1 % (11.6-15.6) 10/02/17 06:05 Plt Count 288 K/MM3 (134-434) 10/02/17 06:05 MPV 7.7 fl (7.5-11.1) 10/02/17 06:05 CMP Sodium 139 mmol/L (136-145) 10/02/17 06:05 Potassium 3.8 mmol/L (3.5-5.1) 10/02/17 06:05 Chloride 107 mmol/L (98-107) 10/02/17 06:05 Carbon Dioxide 21 mmol/L (21-32) 10/02/17 06:05 Anion Gap 11 (8-16) 10/02/17 06:05 BUN 12 mg/dL (7-18) 10/02/17 06:05 Creatinine 0.6 mg/dL (0.55-1.02) 10/02/17 06:05 Creat Clearance w eGFR > 60 (>60) 10/02/17 06:05 Random Glucose 254 mg/dL (74-106) H 10/02/17 06:05 Calcium 7.8 mg/dL (8.5-10.1) L 10/02/17 06:05 Total Bilirubin 0.5 mg/dL (0.2-1.0) D 10/02/17 06:05 AST 12 U/L (15-37) L 10/02/17 06:05 ALT 21 U/L (12-78) 10/02/17 06:05 Alkaline Phosphatase 101 U/L (45-117) 10/02/17 06:05 Total Protein 5.9 g/dl (6.4-8.2) L 10/02/17 06:05 Albumin 2.7 g/dl (3.4-5.0) L 10/02/17 06:05 Current Medications Generic Name Dose Route Start Last Admin Trade Name Freq PRN Reason Stop Dose Admin Acetaminophen 650 mg 10/01/17 22:48 Tylenol - PO Q4H PRN PAIN LEVEL 1-5 Sodium Chloride 1,000 mls @ 75 mls/hr 10/01/17 23:45 10/02/17 10:17 Normal Saline - IV 75 mls/hr ASDIR KAY Administration Insulin Aspart 1 vial 10/02/17 22:00 Novolog Vial Sliding Scale - SQ HS KAY Protocol Insulin Aspart 1 vial 10/02/17 11:00 10/02/17 16:35 Novolog Vial Sliding Scale - SQ 10 units TIDAC [facility] Administration Protocol Levofloxacin 500 mg 10/02/17 11:30 10/02/17 11:53 Levaquin - PO 500 mg DAILY@0600 [facility] Administration Home Medications Medication Instructions Recorded Miscellaneous Medical Supply 1 each SQ ASDIR #1 kit 02/28/17 [Glucometer Device] Furosemide [Lasix -] 40 mg PO DAILY 10/01/17 Hydrochlorothiazide [Hctz -] 12.5 mg PO DAILY 10/01/17 Lisinopril 5 mg PO DAILY 10/01/17 Enalapril Maleate 5 mg PO DAILY 10/02/17 Insulin Aspart [Novolog Flexpen] 8 unit SQ TID #1 insuln.pen 10/02/17 Insulin Glargine,Hum.rec.anlog 20 units SQ BID #1 vial 10/02/17 [Lantus (10mL VIAL) -] Lancets/Blood Glucose Strips [Fora 1 each MC DAILY #5 combo..pkg 10/02/17 [id number] Strp-Lnct] Potassium Chloride 20 meq PO TID 10/02/17 Silver Sulfadiazine 1% Top Cr 1 applic TP DAILY 10/02/17 [Silvadene -] Syringe,Needle,Insuln,Safe,1Ml 1 each MC BID #100 disp.syrin 10/02/17 [Easy Touch Fliplock Insulin] levoFLOXacin [Levaquin -] 500 mg PO DAILY@0600 #9 tablet 10/02/17 ASSESSMENT AND PLAN:
[2017-10-02] MEDS ORDERED: INSULIN SLIDING SCALE (NOVOLOG) 1 VIAL SQ SCH (22:00)
== END 2017-10-02 19:22 | disposition home or self-care (01) ==
LOC: JER 16:36 → JERBED 21:12 → J5S 10-02 01:14
PROVIDERS: ADMIT Internal Medicine; ATTEND Internal Medicine
PROC: 3E03329 Introduction of Other Anti-infective into Peripheral Vein, Percutaneous Approach (ICD-10-PCS; principal; 2017-10-01)
PROC: 3E033GC Introduction of Other Therapeutic Substance into Peripheral Vein, Percutaneous Approach (ICD-10-PCS; 2017-10-01)
PROC: 3E0337Z Introduction of Electrolytic and Water Balance Substance into Peripheral Vein, Percutaneous Approach (ICD-10-PCS; 2017-10-01)
PROC: 3E013VG Introduction of Insulin into Subcutaneous Tissue, Percutaneous Approach (ICD-10-PCS; 2017-10-01)
DX: E11.649 Type 2 diabetes mellitus with hypoglycemia without coma (principal); T38.3X5A Adverse effect of insulin and oral hypoglycemic [antidiabetic] drugs, initial encounter; Z79.4 Long term (current) use of insulin; Y92.009 Unspecified place in unspecified non-institutional (private) residence as the place of occurrence of the external cause; N12 Tubulo-interstitial nephritis, not specified as acute or chronic; N39.0 Urinary tract infection, site not specified; R19.7 Diarrhea, unspecified; K58.9 Irritable bowel syndrome, unspecified; Z88.0 Allergy status to penicillin
CPT/HCPCS: 36415; 71045-TC-FY; 76775-TC; 80053; 80307; 81003; 81015; 82962; 83605; 83735; 84100; 85025; 85610; 87040; 87086; 87186; 93005; 93010; 96365; 96372; 96375; 99285-25; G0378; J7030

== ENCOUNTER 2017-10-06 08:05 | Day surgery (SDC) | payer OTHER ==
[2017-10-06 08:53] VITALS: BMI 40.4
[2017-10-06 10:33] VITALS: TEMP 97.7
[2017-10-06 10:46] VITALS: BP 166/91; PULSE 84
--- NOTE | 2017-10-06 11:32 | PROC ---
Endoscopy Procedure Endoscopy procedure completed. Please see scanned procedure report.
== END 2017-10-06 11:30 | disposition home or self-care (01) ==
LOC: JASU-ENDO 08:05
PROVIDERS: ATTEND Internal Medicine Gastroenterology
PROC: 0DBN8ZX Excision of Sigmoid Colon, Via Natural or Artificial Opening Endoscopic, Diagnostic (ICD-10-PCS; 2017-10-06)
PROC: 0DBM8ZX Excision of Descending Colon, Via Natural or Artificial Opening Endoscopic, Diagnostic (ICD-10-PCS; 2017-10-06)
PROC: 0DBH8ZX Excision of Cecum, Via Natural or Artificial Opening Endoscopic, Diagnostic (ICD-10-PCS; 2017-10-06)
PROC: 0DB98ZX Excision of Duodenum, Via Natural or Artificial Opening Endoscopic, Diagnostic (ICD-10-PCS; 2017-10-06)
PROC: 0DB68ZX Excision of Stomach, Via Natural or Artificial Opening Endoscopic, Diagnostic (ICD-10-PCS; 2017-10-06)
PROC: 0DBK8ZX Excision of Ascending Colon, Via Natural or Artificial Opening Endoscopic, Diagnostic (ICD-10-PCS; principal; 2017-10-06 08:30)
DX: R19.7 Diarrhea, unspecified (principal); K31.7 Polyp of stomach and duodenum
CPT/HCPCS: 84703; 88305-TC; 88342-TC

== ENCOUNTER 2019-05-13 13:28 | Emergency (ER) | payer OTHER ==
[2019-05-13 13:39] VITALS: BMI 41.4
--- NOTE | 2019-05-13 15:15 | PDOC ---
History of Present Illness - General Chief Complaint: Respiratory Stated Complaint: SENT BY PCP/[facility] FEVER Time Seen by Provider: 05/13/19 14:43 History Source: Patient Exam Limitations: No Limitations - History of Present Illness Initial Comments: 05/13/19 15:10 38-year-old female presents to the urgent ER with complaints of intermittent fevers for the past month. Patient states was initially treated for bronchitis and UTI which then was switched to a different antibiotic. Patient states since then she has been for placed on a third antibiotic which he cannot recall the name. Patient states symptoms of sore throat, cough and weakness continue. Patient denies recent travel, recent vaccinations or recent sick contacts. Patient states mild dysuria and flank pain. Is this a multiple visit Asthma Patient?: No Timing/Duration: reports: other Severity: reports: mild Possible Cause: Yes: other Associated Symptoms: reports: cough, fever/chills Past History - Travel Traveled outside of the country in the last 30 days: No Close contact w/someone who was outside of country & ill: No - Past Medical History Allergies/Adverse Reactions: Allergies Allergy/AdvReac Type Severity Reaction Status Date / Time Penicillins Allergy Verified 05/13/19 13:35 Home Medications: Ambulatory Orders Ondansetron [Zofran -] 4 mg PO BID #20 tablet 05/13/19 Sulfamethoxazole/Trimethoprim [Bactrim Ds -] 1 tab PO BID #20 tablet 05/13/19 Anemia: Yes (h/o) Asthma: Yes (BRONCHIAL ASTHMA) Cancer: No Cardiac Disorders: No CVA: No COPD: No CHF: No Dementia: No Diabetes: Yes GI Disorders: No Disorders: No HTN: Yes Hypercholesterolemia: No Liver Disease: No Seizures: No Thyroid Disease: No - Immunization History Immunization Up to Date: No (UNKNOWN) - Psycho Social/Smoking Cessation Hx Smoking History: Never smoked Have you smoked in the past 12 months: No Cigars Per Day: 0 Hx Alcohol Use: No Drug/Substance Use Hx: No Substance Use Type: None Hx Substance Use Treatment: No Patient Lives Alone: No Lives with/in: children and mother Respiratory Specific PMHX - Complaint Specific PMHX Hx Smoking Exposure: No Hx Bronchitis: Yes Review of Systems - Review of Systems Able to Perform ROS?: No Is the patient limited Mongolian proficient: No Constitutional: Yes: Chills HEENTM: No: Symptoms Reported Respiratory: Yes: Cough Cardiac (ROS): No: Symptoms Reported ABD/GI: No: Symptoms Reported : No: Symptoms Reported Musculoskeletal: No: Symptoms Reported Integumentary: No: Symptoms Reported *Physical Exam - Vital Signs Last Vital Signs Temp Pulse Resp BP Pulse Ox 98.1 F 101 H 18 140/101 H 99 05/13/19 13:37 05/13/19 13:37 05/13/19 13:37 05/13/19 13:37 05/13/19 13:37 - Physical Exam General Appearance: Yes: Nourished, Appropriately Dressed. No: Apparent Distress HEENT: positive: TMs Normal, Pharynx Normal. negative: Pale Conjunctivae Neck: positive: Supple Respiratory/Chest: positive: Lungs Clear, Normal Breath Sounds. negative: Respiratory Distress, Accessory Muscle Use Cardiovascular: positive: Regular Rhythm, Regular Rate. negative: Murmur Gastrointestinal/Abdominal: positive: Soft. negative: Tenderness Integumentary: positive: Normal Color, Warm, Moist Neurologic: positive: Motor Strength 5/5 (ambulatory) ED Treatment Course - LABORATORY CBC & Chemistry Diagram: 05/13/19 15:15 05/13/19 15:15 - RADIOLOGY Radiology Studies Ordered: Category Date Time Status CHEST PA & LAT [RAD] Stat Radiology 05/13/19 15:08 Ordered Medical Decision Making - Medical Decision Making 05/13/19 15:05 Chief complaint: Intermittent fevers for the past month treatment for UTI and bronchitis over the past month. Unable to recall antibiotics. Exam: Vital signs stable lungs clear to auscultation no oropharynx involvement. Plan:, Urine urine culture chest x-ray CBC and, comp 05/13/19 15:18 Patient able to find medication she was on. Patient initially was on Bactrim 1 tab twice daily for 5 days then Levaquin 1 tablet for 5 days, and then then Augmentin 875 bid for 10 days but did not take since she has allergies to penicillin. 05/13/19 15:56 Laboratory Tests 05/13/19 15:15 WBC 11.6 H Hgb 11.8 Hct 36.0 Neutrophils % 61.8 Monocytes % 7.0 Basophils % 2.4 H Discharge - Discharge Information Problems reviewed: Yes Clinical Impression/Diagnosis: UTI (urinary tract infection) Qualifiers: Urinary tract infection type: acute pyelonephritis Qualified Code(s): N10 - Acute pyelonephritis Condition: Stable Disposition: HOME - Additional Discharge Information Prescriptions: Ondansetron [Zofran -] 4 mg PO BID #20 tablet Sulfamethoxazole/Trimethoprim [Bactrim Ds -] 1 tab PO BID #20 tablet - Follow up/Referral Referrals: Dash Peguero MD [Primary Care Provider] - - Patient Discharge Instructions Additional Instructions: Rest, drink lots of fluids: Teas, water, soups Avoid contact with others until fevers and symptoms resolved Lots of handwashing and good hygiene Continue [id number] medications for symptomatic relief Tylenol or Motrin for fever and pain Continue all of antibiotics until completed Followup with private physician in one week for repeat urinalysis/reevaluation Return to emergency department for worsened symptoms, fevers, dehydration - Post Discharge Activity
[2019-05-13 15:30] LABS: BASO % 2.4 % (0-2.0); EOS % 2.2 % (0-4.5); HEMOGLOBIN 11.8 GM/dL (10.7-15.3); LYMPH % 26.6 % (8-40); MCH 29.3 pg (25.7-33.7); MCHC 32.8 g/dl (32.0-36.0); MEAN CELL VOLUME 89.4 fl (80-96); MEAN PLT VOLUME 7.6 fl (7.5-11.1); NEUT % 61.8 % (42.8-82.8); PLATELET COUNT 376 K/MM3 (134-434); RBC 4.03 M/mm3 (3.60-5.2); RDW 13.5 % (11.6-15.6); WHITE BLOOD COUNT 11.6 K/mm3 (4.0-10.0)
[2019-05-13 15:58] LABS: ALBUMIN 2.8 g/dl (3.4-5.0); BILIRUBIN,TOTAL 0.4 mg/dL (0.2-1); BLOOD UREA NITROGEN 15.4 mg/dL (7-18); CREATININE 0.7 mg/dL (0.55-1.3); POTASSIUM 3.9 mmol/L (3.5-5.1); TOT PROT 6.3 g/dl (6.4-8.2)
--- NOTE | 2019-05-13 16:29 | PDOC ---
*Physical Exam - Vital Signs Last Vital Signs Temp Pulse Resp BP Pulse Ox 98.1 F 101 H 18 140/101 H 99 05/13/19 13:37 05/13/19 13:37 05/13/19 13:37 05/13/19 13:37 05/13/19 13:37 - Physical Exam General Appearance: Yes: Appropriately Dressed. No: Apparent Distress HEENT: positive: Normal ENT Inspection Respiratory/Chest: positive: Lungs Clear, Normal Breath Sounds. negative: Respiratory Distress, Accessory Muscle Use Cardiovascular: positive: Regular Rhythm, Regular Rate. negative: Murmur Gastrointestinal/Abdominal: positive: Normal Bowel Sounds, Soft. negative: Tender Musculoskeletal: positive: Normal Inspection. negative: CVA Tenderness Extremity: positive: Normal Inspection Integumentary: positive: Normal Color, Dry, Warm ED Treatment Course - LABORATORY CBC & Chemistry Diagram: 05/13/19 15:15 05/13/19 15:15 - ADDITIONAL ORDERS Additional order review: Laboratory Results 05/13/19 15:15 Sodium 142 Potassium 3.9 Chloride 108 H Carbon Dioxide 28 Anion Gap 6 L BUN 15.4 Creatinine 0.7 Est GFR (CKD-EPI)AfAm 126.49 Est GFR (CKD-EPI)NonAf 109.14 Random Glucose 105 Calcium 9.0 Total Bilirubin 0.4 AST 21 ALT 24 Alkaline Phosphatase 145 H Total Protein 6.3 L Albumin 2.8 L 05/13/19 15:15 RBC 4.03 MCV 89.4 MCHC 32.8 RDW 13.5 MPV 7.6 Neutrophils % 61.8 Lymphocytes % 26.6 D Monocytes % 7.0 Eosinophils % 2.2 D Basophils % 2.4 H ED Progress Note - Progress Note Progress Note: 05/13/19 16:29 Received signout from nurse practitioner Aranza. Briefly this is a 38-year-old woman presents emergency department for evaluation of intermittent fevers over the past month. Patient was seen by her primary doctor and started on antibiotics for bronchitis and UTI. Patient took a 5-day course of Bactrim and then was switched to a 5-day course of Levaquin. Patient's primary doctor then switch her to Augmentin which the patient did not take as she has allergy to penicillin. Patient also endorses dysuria with flank pain. WBC 11.6 without shift present. Chemistries notable for mildly elevated alkaline phosphatase of 145. Urinalysis and chest x-ray are pending. Disposition pending results of urinalysis and chest x-ray. Medical Decision Making - Medical Decision Making 05/13/19 19:04 Urine notable for 2+ protein, trace ketones, trace leukoesterase with 12 WBCs. Urine bacteria 34.2. Given patient's symptoms, I will treat with Bactrim twice daily for the next 14 days. Previous urine culture shows E. coli ESBL executive producer promos which was sensitive to Bactrim. Patient states she was recently treated with a 5-day course of Bactrim which had to be stopped as patient is having a difficult time tolerating the medication. Patient with severe penicillin allergy therefore will avoid cephalosporins as she states she had an anaphylactic reaction a 1 years old. Previous culture showed resistance to fluoroquinolones. Discharge home to follow-up with her primary doctor. I discussed the physical exam findings, ancillary test results and final diagnoses with the patient. I answered all of the patient's questions. The patient was satisfied with the care received and felt comfortable with the discharge plan and treatment plan. The patient will call their primary care physician within 24 hours to arrange follow-up and will return to the Emergency Department with any new, persistent or worsening symptoms. Discharge - Discharge Information Problems reviewed: Yes Clinical Impression/Diagnosis: UTI (urinary tract infection) Qualifiers: Urinary tract infection type: acute pyelonephritis Qualified Code(s): N10 - Acute pyelonephritis Condition: Stable Disposition: HOME - Admission No - Additional Discharge Information Prescriptions: Ondansetron [Zofran -] 4 mg PO BID #20 tablet Sulfamethoxazole/Trimethoprim [Bactrim Ds -] 1 tab PO BID #20 tablet - Follow up/Referral Referrals: Dash Peguero MD [Primary Care Provider] - - Patient Discharge Instructions Additional Instructions: Rest, drink lots of fluids: Teas, water, soups Avoid contact with others until fevers and symptoms resolved Lots of handwashing and good hygiene Continue [id number] medications for symptomatic relief Tylenol or Motrin for fever and pain Continue all of antibiotics until completed Followup with private physician in one week for repeat urinalysis/reevaluation Return to emergency department for worsened symptoms, fevers, dehydration - Post Discharge Activity
[2019-05-13 18:07] VITALS: BP 133/77; PULSE 98; TEMP 97.6
[2019-05-13 18:13] LABS: EPI CELLS 4.9 /HPF (0-5/HPF); HYALINE CASTS 3 /lpf (0-8); PH,URINE 5.5 (5.0-8.0); URINE APPEARANCE CLEAR; URINE BACTERIA 34.2 /hpf (NEGATIVE); URINE BILIRUBIN NEGATIVE (NEGATIVE); URINE COLOR YELLOW; URINE GLUCOSE (UA) TRACE (NEGATIVE); URINE KETONE TRACE (NEGATIVE); URINE LEUK ESTERASE TRACE (NEGATIVE); URINE NITRITE NEGATIVE (NEGATIVE); URINE PROTEIN 2+ (NEGATIVE); URINE RBC 2 /hpf (0-4); URINE WBC 12 /hpf (0-5)
== END 2019-05-13 19:09 | disposition home or self-care (01) ==
LOC: JER 13:28
DX: N10 Acute pyelonephritis (principal); Z88.0 Allergy status to penicillin; Z87.440 Personal history of urinary (tract) infections
CPT/HCPCS: 36415; 71046-TC-FY; 80053; 81003; 85025; 87086; 99282-25

== ENCOUNTER 2021-05-04 04:20 | Day surgery (SDC) | payer OTHER ==
[2021-04-17 17:32] VITALS: BMI 47.0
[2021-05-04] MEDS ORDERED: LIDOCAINE HCL/PF 1% SDV 5ML VIAL ONE (07:19)
[2021-05-04] MEDS ORDERED: BUPIVACAINE HCL/PF 0.75% 10 ML VIAL ONE (07:20)
[2021-05-04 08:33] VITALS: TEMP 98.9
[2021-05-04] MEDS ORDERED: IOHEXOL 180 MG/1 ML ML IJ ONE ×2 (09:38→09:41)
[2021-05-04] MEDS ORDERED: LIDOCAINE HCL 1% PRESERVATIVE FREE - 30ML VIAL IJ ONE ×2 (09:38→09:40)
[2021-05-04] MEDS ORDERED: BUPIVACAINE HCL/PF 0.75% 10 ML VIAL NR ONE ×2 (09:39→09:50)
[2021-05-04 10:16] VITALS: BP 154/74; PULSE 86
== END 2021-05-04 11:00 | disposition home or self-care (01) ==
LOC: JASU-SURG 04:20
PROVIDERS: ATTEND Pain Medicine Pain Medicine
PROC: BR16YZZ Fluoroscopy of Lumbar Facet Joint(s) using Other Contrast (ICD-10-PCS; 2021-05-04)
PROC: 3E0T3BZ Introduction of Anesthetic Agent into Peripheral Nerves and Plexi, Percutaneous Approach (ICD-10-PCS; principal; 2021-05-04 09:30)
DX: M47.816 Spondylosis without myelopathy or radiculopathy, lumbar region (principal); I10 Essential (primary) hypertension; E11.9 Type 2 diabetes mellitus without complications
CPT/HCPCS: 76000-TC-FY; 81025; 82962

== ENCOUNTER 2021-06-08 04:08 | Day surgery (SDC) | payer OTHER ==
[2021-06-06 13:18] VITALS: BMI 47.0
[2021-06-08] MEDS ORDERED: BUPIVACAINE HCL/PF 0.75% 10 ML VIAL ONE (07:08)
[2021-06-08] MEDS ORDERED: LIDOCAINE HCL/PF 1% SDV 5ML VIAL ONE (07:08)
[2021-06-08 09:15] VITALS: PULSE 88
[2021-06-08] MEDS ORDERED: IOHEXOL 180 MG/1 ML ML IJ ONE (09:53)
[2021-06-08] MEDS ORDERED: LIDOCAINE HCL 1% PRESERVATIVE FREE - 30ML VIAL IJ ONE (09:55)
[2021-06-08] MEDS ORDERED: BUPIVACAINE HCL/PF 0.75% 10 ML VIAL NR ONE (09:56)
[2021-06-08 10:41] VITALS: BP 145/82; TEMP 98.9
== END 2021-06-08 10:48 | disposition home or self-care (01) ==
LOC: JASU-SURG 04:08
PROVIDERS: ATTEND Pain Medicine Pain Medicine
PROC: 3E0T33Z Introduction of Anti-inflammatory into Peripheral Nerves and Plexi, Percutaneous Approach (ICD-10-PCS; 2021-06-08)
PROC: 3E0T3BZ Introduction of Anesthetic Agent into Peripheral Nerves and Plexi, Percutaneous Approach (ICD-10-PCS; principal; 2021-06-08 09:30)
DX: M47.816 Spondylosis without myelopathy or radiculopathy, lumbar region (principal)
CPT/HCPCS: 76000-TC-FY; 81025

== ENCOUNTER 2022-07-12 13:50 | Day surgery (SDC) | payer OTHER ==
[2022-07-12 14:13] VITALS: BMI 48.4
[2022-07-12] MEDS ORDERED: oxyCODONE HCL 5 MG TABLET PO PRN (17:06)
[2022-07-12] MEDS ORDERED: ONDANSETRON 4 MG/2 ML VIAL IVPUSH PRN (17:06)
[2022-07-12] MEDS ORDERED: ONDANSETRON 4 MG/2 ML VIAL ONE (18:13)
[2022-07-12] MEDS ORDERED: oxyCODONE HCL 5 MG TABLET ONE (18:18)
[2022-07-12 18:59] VITALS: RESP 20; TEMP 97.5
[2022-07-12 19:21] VITALS: BP 140/78; PULSE 79
== END 2022-07-12 19:12 | disposition home or self-care (01) ==
LOC: FASU 13:50
PROVIDERS: ATTEND Orthopaedic Surgery
PROC: 0LN14ZZ Release Right Shoulder Tendon, Percutaneous Endoscopic Approach (ICD-10-PCS; principal; 2022-07-12 15:25)
PROC: 0RNJ4ZZ Release Right Shoulder Joint, Percutaneous Endoscopic Approach (ICD-10-PCS; 2022-07-12 15:25)
DX: S46.011D Strain of muscle(s) and tendon(s) of the rotator cuff of right shoulder, subsequent encounter (principal); M75.21 Bicipital tendinitis, right shoulder; M75.51 Bursitis of right shoulder; M65.811 Other synovitis and tenosynovitis, right shoulder; S43.431D Superior glenoid labrum lesion of right shoulder, subsequent encounter; M19.011 Primary osteoarthritis, right shoulder; M75.01 Adhesive capsulitis of right shoulder; X58.XXXD Exposure to other specified factors, subsequent encounter
CPT/HCPCS: 82962; 94760; C1713

== ENCOUNTER 2023-03-18 12:30 | Inpatient (IN) | payer OTHER ==
[2023-03-18] MEDS ORDERED: LOSARTAN POTASSIUM 50 MG TABLET PO ONE (13:53)
[2023-03-18] MEDS ORDERED: TORSEMIDE 20 MG TABLET (FP) PO ONE (13:53)
[2023-03-18] MEDS ORDERED: LOSARTAN POTASSIUM 50 MG TABLET ONE ×2 (13:57→13:59)
[2023-03-18] MEDS ORDERED: ACETAMINOPHEN 1000 MG/100 ML BAG IVPB ONE (13:58)
[2023-03-18] MEDS ORDERED: ACETAMINOPHEN INJECTION 100 ML IVPB ONE (13:59)
[2023-03-18 14:36] LABS: EPI CELLS 16 /uL (0-25.1); HYALINE CASTS 0 /uL (0-3.1); PH,URINE 5.5 (5.0-8.0); URINE APPEARANCE TURBID; URINE BILIRUBIN NEGATIVE (NEGATIVE); URINE COLOR YELLOW; URINE GLUCOSE (UA) TRACE (NEGATIVE); URINE KETONE TRACE (NEGATIVE); URINE LEUK ESTERASE 2+ (NEGATIVE); URINE NITRITE NEGATIVE (NEGATIVE); URINE PROTEIN 4+ (NEGATIVE); URINE RBC 116 /uL (0-23.9); URINE UROBILINOGEN 0.2 mg/dL (0.2-1.0); URINE WBC 8032 /uL (0-25.8)
[2023-03-18 14:59] LABS: URINE BACTERIA 4+ /uL (0-1359)
[2023-03-18] MEDS ORDERED: ACETAMINOPHEN 500 MG TABLET (FP) PO ONE (15:46)
[2023-03-18 16:02] LABS: POTASSIUM 3.7 mmol/L (3.5-5.1)
[2023-03-18 16:03] LABS: CALCIUM 8.4 mg/dL (8.5-10.1)
[2023-03-18 16:04] LABS: ALBUMIN 2.4 g/dl (3.4-5.0)
[2023-03-18 16:09] LABS: BILIRUBIN,TOTAL 0.2 mg/dL (0.2-1); TOT PROT 6.1 g/dl (6.4-8.2)
[2023-03-18] MEDS ORDERED: ACETAMINOPHEN 325 MG TABLET (FP) ONE (16:24)
[2023-03-18] MEDS ORDERED: CEFTRIAXONE 1,000 MG in DEXTROSE 5%-WATER - 50 ML IVPB ONE (16:55)
[2023-03-18] MEDS ORDERED: CEFTRIAXONE 1 GM/50 ML BAG ONE (17:13)
[2023-03-18 17:43] LABS: BASO % 1.3 % (0-2.0); EOS % 2.3 % (0-4.5); HEMATOCRIT 39.5 % (32.4-45.2); HEMOGLOBIN 12.4 GM/dL (10.7-15.3); LYMPH % 23.3 % (8-40); MCH 28.5 pg (25.7-33.7); MCHC 31.5 g/dl (32.0-36.0); MEAN CELL VOLUME 90.4 fl (80-96); MONO % 5.5 % (3.8-10.2); NEUT % 67.6 % (42.8-82.8); PLATELET COUNT 395 10^3/uL (134-434); RBC 4.37 M/mm3 (3.60-5.2); RDW 14.6 % (11.6-15.6); WHITE BLOOD COUNT 11.3 K/mm3 (4.0-10.0)
[2023-03-18] MEDS ORDERED: ROSUVASTATIN CA 5 MG TABLET ONE (21:42)
[2023-03-18] MEDS ORDERED: CARVEDILOL 3.125 MG TABLET (FP) ONE (21:42)
[2023-03-18] MEDS ORDERED: HEPARIN NA (PORCINE) 5,000 UNITS/ML 1ML VIAL ONE (21:42)
[2023-03-18] MEDS ORDERED: ERGOCALCIFEROL (VIT D2) 50,000 UNIT (1.25 MG) CAPSULE PO SCH (21:45)
[2023-03-18] MEDS: CARVEDILOL 3.125 MG TABLET (FP) PO SCH (21:57)
[2023-03-18] MEDS: ROSUVASTATIN CA 5 MG TABLET PO SCH (21:57)
[2023-03-18] MEDS: HEPARIN NA (PORCINE) 5,000 UNITS/ML 1ML VIAL SQ SCH (21:57)
[2023-03-18] MEDS: INSULIN ASPART SLIDING SCALE (NOVOLOG) 1 VIAL SQ SCH (23:35)
[2023-03-19] MEDS: INSULIN ASPART SLIDING SCALE (NOVOLOG) 1 VIAL SQ SCH ×4 (07:02→22:59)
[2023-03-19] MEDS: HEPARIN NA (PORCINE) 5,000 UNITS/ML 1ML VIAL SQ SCH ×3 (07:02→22:59)
[2023-03-19 09:04] LABS: HEMOGLOBIN 11.3 GM/dL (10.7-15.3); MCH 28.7 pg (25.7-33.7); MCHC 31.4 g/dl (32.0-36.0); MEAN CELL VOLUME 91.1 fl (80-96); MEAN PLT VOLUME 7.9 fl (7.5-11.1); PLATELET COUNT 361 10^3/uL (134-434); RBC 3.95 M/mm3 (3.60-5.2); RDW 15.1 % (11.6-15.6); WHITE BLOOD COUNT 9.8 K/mm3 (4.0-10.0)
[2023-03-19 09:32] LABS: POTASSIUM 3.4 mmol/L (3.5-5.1)
[2023-03-19 09:36] LABS: ALBUMIN 2.4 g/dl (3.4-5.0); BLOOD UREA NITROGEN 32.6 mg/dL (7-18)
[2023-03-19 09:39] LABS: CREATININE 3.4 mg/dL (0.55-1.3)
[2023-03-19 09:40] LABS: BILIRUBIN,TOTAL 0.5 mg/dL (0.2-1)
[2023-03-19 09:42] LABS: TOT PROT 5.8 g/dl (6.4-8.2)
[2023-03-19] MEDS ORDERED: ERTAPENEM SODIUM 1 GM in SODIUM CHLORIDE 50 ML IVPB SCH (10:00)
[2023-03-19] MEDS ORDERED: LOSARTAN POTASSIUM 50 MG TABLET PO SCH (10:00)
[2023-03-19] MEDS: FERROUS SO4 325 MG TABLET (FP) PO SCH (11:00)
[2023-03-19] MEDS: NIFEdipine E.R. 30 MG TABLET PO SCH (11:00)
[2023-03-19] MEDS: PANTOPRAZOLE 20 MG TABLET PO SCH (11:00)
[2023-03-19] MEDS: CARVEDILOL 3.125 MG TABLET (FP) PO SCH ×2 (11:00→22:59)
[2023-03-19] MEDS: ROSUVASTATIN CA 5 MG TABLET PO SCH (22:59)
[2023-03-20] MEDS: INSULIN ASPART SLIDING SCALE (NOVOLOG) 1 VIAL SQ SCH ×4 (07:12→21:43)
[2023-03-20] MEDS: HEPARIN NA (PORCINE) 5,000 UNITS/ML 1ML VIAL SQ SCH ×3 (07:14→21:31)
[2023-03-20] MEDS: LABETALOL HCL 100 MG TABLET (FP) PO SCH ×2 (07:14→13:49)
[2023-03-20 08:27] LABS: POTASSIUM 3.6 mmol/L (3.5-5.1)
[2023-03-20 08:29] LABS: ALBUMIN 2.2 g/dl (3.4-5.0); CALCIUM 7.8 mg/dL (8.5-10.1)
[2023-03-20 08:33] LABS: CREATININE 3.2 mg/dL (0.55-1.3)
[2023-03-20 08:34] LABS: BILIRUBIN,TOTAL 0.3 mg/dL (0.2-1); TOT PROT 5.4 g/dl (6.4-8.2)
[2023-03-20 09:03] LABS: HEMATOCRIT 32.9 % (32.4-45.2); HEMOGLOBIN 10.4 GM/dL (10.7-15.3); MCH 28.9 pg (25.7-33.7); MCHC 31.7 g/dl (32.0-36.0); MEAN CELL VOLUME 91.1 fl (80-96); RBC 3.61 M/mm3 (3.60-5.2); RDW 14.6 % (11.6-15.6)
[2023-03-20 09:05] LABS: WHITE BLOOD COUNT 10.3 K/mm3 (4.0-10.0)
[2023-03-20] MEDS ORDERED: ERTAPENEM SODIUM 0.5 GM in SODIUM CHLORIDE 50 ML IVPB SCH (10:00)
[2023-03-20] MEDS: FERROUS SO4 325 MG TABLET (FP) PO SCH (10:05)
[2023-03-20] MEDS: CARVEDILOL 3.125 MG TABLET (FP) PO SCH ×2 (10:05→21:32)
[2023-03-20] MEDS: NIFEdipine E.R. 30 MG TABLET PO SCH (10:05)
[2023-03-20] MEDS: PANTOPRAZOLE 20 MG TABLET PO SCH (10:05)
[2023-03-20 10:14] LABS: ANISOCYTOSIS 0; MACROCYTOSIS 0
[2023-03-20 16:44] VITALS: BMI 48.1
[2023-03-20] MEDS: INSULIN PUMP - PATIENTS OWN MED NR SCH (18:52)
[2023-03-20] MEDS: ROSUVASTATIN CA 5 MG TABLET PO SCH (21:32)
[2023-03-20] MEDS: hydrALAZINE HCL 25 MG TABLET (FP) PO SCH (21:32)
[2023-03-21] MEDS: HEPARIN NA (PORCINE) 5,000 UNITS/ML 1ML VIAL SQ SCH ×2 (05:22→14:41)
[2023-03-21] MEDS: hydrALAZINE HCL 25 MG TABLET (FP) PO SCH ×2 (05:23→14:42)
[2023-03-21 07:47] VITALS: RESP 18
[2023-03-21] MEDS: INSULIN ASPART SLIDING SCALE (NOVOLOG) 1 VIAL SQ SCH ×3 (08:03→17:56)
[2023-03-21 09:03] LABS: BASO % 1.3 % (0-2.0); EOS % 3.2 % (0-4.5); HEMATOCRIT 32.8 % (32.4-45.2); HEMOGLOBIN 10.5 GM/dL (10.7-15.3); LYMPH % 19.1 % (8-40); MCH 28.8 pg (25.7-33.7); MCHC 31.8 g/dl (32.0-36.0); MEAN CELL VOLUME 90.5 fl (80-96); MEAN PLT VOLUME 7.8 fl (7.5-11.1); MONO % 7.7 % (3.8-10.2); NEUT % 68.7 % (42.8-82.8); PLATELET COUNT 333 10^3/uL (134-434); RBC 3.63 M/mm3 (3.60-5.2)
[2023-03-21 09:18] LABS: POTASSIUM 3.8 mmol/L (3.5-5.1)
[2023-03-21 09:21] LABS: ALBUMIN 2.2 g/dl (3.4-5.0); BLOOD UREA NITROGEN 36.6 mg/dL (7-18); CALCIUM 8.3 mg/dL (8.5-10.1)
[2023-03-21 09:24] LABS: CREATININE 3.3 mg/dL (0.55-1.3)
[2023-03-21 09:26] LABS: BILIRUBIN,TOTAL 0.3 mg/dL (0.2-1); TOT PROT 5.4 g/dl (6.4-8.2)
[2023-03-21] MEDS: FERROUS SO4 325 MG TABLET (FP) PO SCH (12:03)
[2023-03-21] MEDS: CARVEDILOL 3.125 MG TABLET (FP) PO SCH (12:04)
[2023-03-21] MEDS: PANTOPRAZOLE 20 MG TABLET PO SCH (12:04)
[2023-03-21] MEDS: NIFEdipine E.R. 30 MG TABLET PO SCH (12:04)
[2023-03-21] MEDS ORDERED: FLUCONAZOLE 150 MG TABLET PO ONE (14:00)
[2023-03-21 15:47] VITALS: TEMP 98.5
[2023-03-21 15:48] VITALS: BP 148/88; PULSE 85
[2023-03-21] MEDS: INSULIN PUMP - PATIENTS OWN MED NR SCH (17:56)
== END 2023-03-21 20:00 | disposition home or self-care (01) | DRG 199 ==
LOC: JER 12:30 → JERBED 17:35 → J7W 03-19 06:23 → OBSVTOIN 03-19 10:46
PROVIDERS: ADMIT Internal Medicine; ATTEND Internal Medicine
DX: I13.10 Hypertensive heart and chronic kidney disease without heart failure, with stage 1 through stage 4 chronic kidney disease, or unspecified chronic kidney disease (principal); E11.22 Type 2 diabetes mellitus with diabetic chronic kidney disease; N17.9 Acute kidney failure, unspecified; Z68.42 Body mass index [BMI] 45.0-49.9, adult; E66.01 Morbid (severe) obesity due to excess calories; D63.1 Anemia in chronic kidney disease; I16.0 Hypertensive urgency; N18.2 Chronic kidney disease, stage 2 (mild); N39.0 Urinary tract infection, site not specified; I16.1 Hypertensive emergency; B96.1 Klebsiella pneumoniae [K. pneumoniae] as the cause of diseases classified elsewhere; Z88.0 Allergy status to penicillin
CPT/HCPCS: 36415; 70450-TC; 71046-TC-FY; 76775-TC; 80053; 81003; 82550; 82570; 83735; 84100; 84156; 84300; 84484; 84540; 85025; 85027; 87086; 87186; 93005; 93010; 93970-TC; 99285-25; G0378; J1644

== ENCOUNTER 2023-09-18 11:44 | Observation (INO) | payer OTHER ==
[2023-09-18 11:50] VITALS: BMI 47.7
[2023-09-18 13:56] LABS: BASO % 0.9 % (0-2.0); EOS % 1.8 % (0-4.5); HEMATOCRIT 32.4 % (32.4-45.2); HEMOGLOBIN 10.5 GM/dL (10.7-15.3); LYMPH % 16.8 % (8-40); MCH 29.3 pg (25.7-33.7); MCHC 32.5 g/dl (32.0-36.0); MEAN CELL VOLUME 90.1 fl (80-96); MEAN PLT VOLUME 7.6 fl (7.5-11.1); MONO % 5.8 % (3.8-10.2); NEUT % 74.7 % (42.8-82.8); PLATELET COUNT 352 10^3/uL (134-434); RBC 3.59 M/mm3 (3.60-5.2); RDW 13.3 % (11.6-15.6); WHITE BLOOD COUNT 13.2 K/mm3 (4.0-10.0)
[2023-09-18] MEDS ORDERED: ACETAMINOPHEN INJECTION 100 ML IVPB ONE (14:02)
[2023-09-18 14:10] LABS: ACTIVATED PTT 24.9 SECONDS (25.2-36.5); INR 0.87 (0.83-1.09); PROTHROMBIN TIME (PATIENT) 10.1 SEC (9.7-13.0)
[2023-09-18 14:15] LABS: POTASSIUM 4.5 mmol/L (3.5-5.1)
[2023-09-18 14:17] LABS: CALCIUM 8.4 mg/dL (8.5-10.1)
[2023-09-18 14:18] LABS: BLOOD UREA NITROGEN 72.2 mg/dL (7-18)
[2023-09-18 14:21] LABS: CREATININE 5.3 mg/dL (0.55-1.3)
[2023-09-18 14:22] LABS: TOT PROT 6.8 g/dl (6.4-8.2)
[2023-09-18 14:23] LABS: BILIRUBIN,TOTAL 0.4 mg/dL (0.2-1)
[2023-09-18] MEDS: ACETAMINOPHEN 1000 MG/100 ML BAG IVPB ONE (14:35)
[2023-09-18 14:40] LABS: EPI CELLS 33 /uL (0-25.1); HYALINE CASTS 0 /uL (0-3.1); URINE APPEARANCE CLEAR; URINE BACTERIA 828 /uL (0-1359); URINE BILIRUBIN NEGATIVE (NEGATIVE); URINE COLOR YELLOW; URINE GLUCOSE (UA) 1+ (NEGATIVE); URINE KETONE NEGATIVE (NEGATIVE); URINE LEUK ESTERASE NEGATIVE (NEGATIVE); URINE NITRITE NEGATIVE (NEGATIVE); URINE PROTEIN 3+ (NEGATIVE); URINE RBC 13 /uL (0-23.9); URINE UROBILINOGEN 0.2 mg/dL (0.2-1.0); URINE WBC 34 /uL (0-25.8)
[2023-09-18 16:28] LABS: POTASSIUM 3.7 mmol/L (3.5-5.1)
[2023-09-18 16:29] LABS: CALCIUM 8.2 mg/dL (8.5-10.1)
[2023-09-18 16:30] LABS: BLOOD UREA NITROGEN 74.2 mg/dL (7-18)
[2023-09-18 16:33] LABS: CREATININE 5.2 mg/dL (0.55-1.3)
[2023-09-18 16:38] LABS: N-TERMINAL BNP 3017.7 pg/ml (5-125)
[2023-09-18] MEDS ORDERED: ROSUVASTATIN CA 5 MG TABLET ONE (22:31)
[2023-09-18] MEDS: ROSUVASTATIN CA 5 MG TABLET PO SCH (22:34)
[2023-09-18] MEDS: SODIUM BICARBONATE 650 MG TABLET PO SCH (23:02)
[2023-09-18] MEDS: PATIENT'S OWN MEDICATION (NON-FORMULARY) (Insulin Lispro [Admelog Solostar] 100 UNIT/ML In SQ SCH (23:04)
[2023-09-19 06:14] LABS: BASO % 1.2 % (0-2.0); EOS % 2.4 % (0-4.5); HEMATOCRIT 27.6 % (32.4-45.2); LYMPH % 25.9 % (8-40); MCH 29.3 pg (25.7-33.7); MCHC 32.5 g/dl (32.0-36.0); MEAN CELL VOLUME 90.2 fl (80-96); MEAN PLT VOLUME 7.5 fl (7.5-11.1); MONO % 7.1 % (3.8-10.2); NEUT % 63.4 % (42.8-82.8); PLATELET COUNT 284 10^3/uL (134-434); RBC 3.06 M/mm3 (3.60-5.2); RDW 13.4 % (11.6-15.6)
[2023-09-19] MEDS ORDERED: LOSARTAN POTASSIUM 50 MG TABLET ONE (06:24)
[2023-09-19] MEDS: LOSARTAN POTASSIUM 50 MG TABLET PO SCH (06:28)
[2023-09-19 06:37] LABS: CHLORIDE 113 mmol/L (98-107); POTASSIUM 3.9 mmol/L (3.5-5.1); SODIUM 142 mmol/L (136-145)
[2023-09-19 06:39] LABS: CALCIUM 7.8 mg/dL (8.5-10.1)
[2023-09-19 06:40] LABS: ALBUMIN 2.5 g/dl (3.4-5.0); ANION GAP 9 mmol/L (4-13); BLOOD UREA NITROGEN 75.8 mg/dL (7-18); CO2 20 mmol/L (21-32); GLUCOSE,RANDOM 67 mg/dL (74-106)
[2023-09-19 06:42] LABS: BILIRUBIN,DIRECT 0.1 mg/dL (0.0-0.2); CREATININE 5.6 mg/dL (0.55-1.3)
[2023-09-19 06:43] LABS: SGOT/AST 12 U/L (15-37); SGPT/ALT 21 U/L (13-61)
[2023-09-19 06:44] LABS: TOT PROT 5.4 g/dl (6.4-8.2)
[2023-09-19 06:45] LABS: BILIRUBIN,TOTAL 0.2 mg/dL (0.2-1)
[2023-09-19 06:56] LABS: ALK PHOS 135 U/L (45-117)
[2023-09-19] MEDS: CYANOCOBALAMIN 1,000 MCG TABLET (FP) PO SCH (09:17)
[2023-09-19] MEDS ORDERED: FOLIC ACID 1 MG TABLET (FP) ONE (09:19)
[2023-09-19] MEDS ORDERED: NIFEdipine E.R 60 MG TABLET PO ONE (09:19)
[2023-09-19] MEDS ORDERED: FERROUS SO4 325 MG TABLET (FP) ONE (09:19)
[2023-09-19] MEDS ORDERED: PANTOPRAZOLE 20 MG TABLET PO ONE (09:19)
[2023-09-19] MEDS: FERROUS SO4 325 MG TABLET (FP) PO SCH (09:20)
[2023-09-19] MEDS: FOLIC ACID 1 MG TABLET (FP) PO SCH (09:20)
[2023-09-19] MEDS: PANTOPRAZOLE 20 MG TABLET PO SCH (09:20)
[2023-09-19] MEDS: NIFEdipine E.R 60 MG TABLET PO SCH (09:20)
[2023-09-19] MEDS ORDERED: TORSEMIDE 20 MG TABLET (FP) PO SCH (10:00)
[2023-09-19] MEDS: HEPARIN NA (PORCINE) 5,000 UNITS/ML 1ML VIAL SQ SCH (22:21)
[2023-09-20 09:13] LABS: BASO % 1.4 % (0-2.0); EOS % 2.5 % (0-4.5); HEMATOCRIT 28.9 % (32.4-45.2); HEMOGLOBIN 9.6 GM/dL (10.7-15.3); LYMPH % 21.1 % (8-40); MCH 29.9 pg (25.7-33.7); MCHC 33.1 g/dl (32.0-36.0); MEAN CELL VOLUME 90.1 fl (80-96); MEAN PLT VOLUME 7.5 fl (7.5-11.1); MONO % 5.6 % (3.8-10.2); NEUT % 69.4 % (42.8-82.8); PLATELET COUNT 284 10^3/uL (134-434); RBC 3.21 M/mm3 (3.60-5.2); RDW 13.2 % (11.6-15.6); WHITE BLOOD COUNT 10.3 K/mm3 (4.0-10.0)
[2023-09-20 09:33] LABS: POTASSIUM 3.9 mmol/L (3.5-5.1)
[2023-09-20 09:35] LABS: CALCIUM 8.2 mg/dL (8.5-10.1)
[2023-09-20 09:36] LABS: ALBUMIN 2.5 g/dl (3.4-5.0); BLOOD UREA NITROGEN 68.1 mg/dL (7-18)
[2023-09-20 09:39] LABS: CREATININE 5.6 mg/dL (0.55-1.3)
[2023-09-20 09:41] LABS: BILIRUBIN,TOTAL 0.3 mg/dL (0.2-1); TOT PROT 5.5 g/dl (6.4-8.2)
[2023-09-20] MEDS: hydrALAZINE HCL 10 MG TABLET PO SCH (13:30)
[2023-09-21 08:57] LABS: BASO % 0.6 % (0-2.0); EOS % 2.3 % (0-4.5); HEMATOCRIT 29.4 % (32.4-45.2); HEMOGLOBIN 9.5 GM/dL (10.7-15.3); LYMPH % 20.6 % (8-40); MCH 29.2 pg (25.7-33.7); MCHC 32.5 g/dl (32.0-36.0); MEAN CELL VOLUME 89.9 fl (80-96); MEAN PLT VOLUME 7.9 fl (7.5-11.1); MONO % 7.3 % (3.8-10.2); NEUT % 69.2 % (42.8-82.8); PLATELET COUNT 281 10^3/uL (134-434); RBC 3.26 M/mm3 (3.60-5.2); RDW 13.5 % (11.6-15.6); WHITE BLOOD COUNT 10.6 K/mm3 (4.0-10.0)
[2023-09-21 09:12] LABS: POTASSIUM 3.7 mmol/L (3.5-5.1)
[2023-09-21 09:14] LABS: CALCIUM 8.4 mg/dL (8.5-10.1)
[2023-09-21 09:15] LABS: ALBUMIN 2.6 g/dl (3.4-5.0)
[2023-09-21 09:19] LABS: CREATININE 5.5 mg/dL (0.55-1.3)
[2023-09-21 09:20] LABS: BILIRUBIN,TOTAL 0.3 mg/dL (0.2-1); TOT PROT 5.6 g/dl (6.4-8.2)
[2023-09-21] MEDS: ERGOCALCIFEROL (VIT D2) 50,000 UNIT (1.25 MG) CAPSULE PO SCH (11:01)
[2023-09-21] MEDS: INSULIN ASPART SLIDING SCALE (NOVOLOG) 1 VIAL SQ SCH (17:54)
[2023-09-22 08:54] LABS: EOS % 2.8 % (0-4.5); HEMATOCRIT 30.6 % (32.4-45.2); LYMPH % 22.5 % (8-40); MCH 29.2 pg (25.7-33.7); MCHC 32.7 g/dl (32.0-36.0); MEAN CELL VOLUME 89.4 fl (80-96); MEAN PLT VOLUME 7.7 fl (7.5-11.1); MONO % 6.9 % (3.8-10.2); NEUT % 66.8 % (42.8-82.8); PLATELET COUNT 304 10^3/uL (134-434); RBC 3.42 M/mm3 (3.60-5.2); RDW 13.4 % (11.6-15.6); WHITE BLOOD COUNT 10.5 K/mm3 (4.0-10.0)
[2023-09-22 09:20] LABS: POTASSIUM 4.1 mmol/L (3.5-5.1)
[2023-09-22 09:26] LABS: CALCIUM 8.1 mg/dL (8.5-10.1)
[2023-09-22 09:27] LABS: ALBUMIN 2.6 g/dl (3.4-5.0); BLOOD UREA NITROGEN 62.2 mg/dL (7-18)
[2023-09-22 09:30] LABS: CREATININE 5.7 mg/dL (0.55-1.3)
[2023-09-22 09:31] LABS: BILIRUBIN,TOTAL 0.4 mg/dL (0.2-1); TOT PROT 5.8 g/dl (6.4-8.2)
[2023-09-22] MEDS: hydrALAZINE HCL 10 MG TABLET PO ONE (19:19)
[2023-09-22] MEDS: hydrALAZINE HCL 10 MG TABLET PO SCH (22:29)
[2023-09-23 06:37] LABS: BASO % 1.4 % (0-2.0); EOS % 2.6 % (0-4.5); HEMATOCRIT 29.8 % (32.4-45.2); HEMOGLOBIN 9.8 GM/dL (10.7-15.3); LYMPH % 24.3 % (8-40); MCH 29.5 pg (25.7-33.7); MCHC 32.9 g/dl (32.0-36.0); MEAN CELL VOLUME 89.9 fl (80-96); MEAN PLT VOLUME 7.7 fl (7.5-11.1); MONO % 7.1 % (3.8-10.2); NEUT % 64.6 % (42.8-82.8); PLATELET COUNT 276 10^3/uL (134-434); RBC 3.31 M/mm3 (3.60-5.2); RDW 13.4 % (11.6-15.6); WHITE BLOOD COUNT 10.8 K/mm3 (4.0-10.0)
[2023-09-23 06:41] LABS: INR 0.9 (0.83-1.09); PROTHROMBIN TIME (PATIENT) 10.4 SEC (9.7-13.0)
[2023-09-23 06:58] LABS: CALCIUM 7.8 mg/dL (8.5-10.1)
[2023-09-23 06:59] LABS: ALBUMIN 2.4 g/dl (3.4-5.0); BLOOD UREA NITROGEN 65.8 mg/dL (7-18)
[2023-09-23 07:02] LABS: CREATININE 5.5 mg/dL (0.55-1.3)
[2023-09-23 07:04] LABS: BILIRUBIN,TOTAL 0.2 mg/dL (0.2-1); TOT PROT 5.6 g/dl (6.4-8.2)
[2023-09-23] MEDS: TORSEMIDE 20 MG TABLET (FP) PO SCH (16:39)
[2023-09-23] MEDS: NIFEdipine E.R. 30 MG TABLET PO ONE (16:39)
[2023-09-23] MEDS: hydrALAZINE HCL 25 MG TABLET (FP) PO SCH (21:48)
[2023-09-24 08:17] LABS: POTASSIUM 4.1 mmol/L (3.5-5.1)
[2023-09-24 08:18] LABS: BASO % 1.2 % (0-2.0); EOS % 2.7 % (0-4.5); HEMATOCRIT 30.6 % (32.4-45.2); LYMPH % 22.9 % (8-40); MCH 29.7 pg (25.7-33.7); MCHC 32.7 g/dl (32.0-36.0); MEAN CELL VOLUME 90.8 fl (80-96); MEAN PLT VOLUME 7.7 fl (7.5-11.1); MONO % 6.8 % (3.8-10.2); NEUT % 66.4 % (42.8-82.8); PLATELET COUNT 330 10^3/uL (134-434); RBC 3.38 M/mm3 (3.60-5.2); RDW 13.5 % (11.6-15.6); WHITE BLOOD COUNT 11.7 K/mm3 (4.0-10.0)
[2023-09-24 08:21] LABS: ALBUMIN 2.6 g/dl (3.4-5.0); BLOOD UREA NITROGEN 61.4 mg/dL (7-18); CALCIUM 8.3 mg/dL (8.5-10.1)
[2023-09-24 08:24] LABS: CREATININE 5.5 mg/dL (0.55-1.3)
[2023-09-24 08:26] LABS: BILIRUBIN,TOTAL 0.3 mg/dL (0.2-1)
[2023-09-24] MEDS: NIFEdipine E.R. 90 MG TABLET PO SCH (10:08)
[2023-09-24] MEDS ORDERED: MIDAZOLAM HCL 2 MG/2 ML SINGLE DOSE VIAL ONE (12:59)
[2023-09-24] MEDS ORDERED: hydrALAZINE HCL 20 MG/ML VIAL ONE (13:53)
[2023-09-24] MEDS: MIDAZOLAM HCL 2 MG/2 ML SINGLE DOSE VIAL IVPUSH ONE ×2 (14:00→14:06)
[2023-09-24] MEDS: SODIUM CHLORIDE 500 ML IV SCH (14:00)
[2023-09-24] MEDS: FENTANYL CITRATE/PF 50 MCG/ML VIAL IVPUSH ONE ×2 (14:00→14:06)
[2023-09-24] MEDS: hydrALAZINE HCL 20 MG/ML VIAL IVPUSH ONE (14:03)
[2023-09-24] MEDS: ACETAMINOPHEN 325 MG TABLET (FP) PO PRN (17:21)
[2023-09-25 01:59] VITALS: RESP 18
[2023-09-25 20:05] VITALS: PULSE 73; TEMP 98.4
[2023-09-25 20:29] VITALS: BP 143/64
== END 2023-09-25 21:14 | disposition home or self-care (01) ==
LOC: JER 11:44 → JERBED 15:07 → J7W 09-19 14:21
PROVIDERS: ADMIT Internal Medicine
PROC: 3E033NZ Introduction of Analgesics, Hypnotics, Sedatives into Peripheral Vein, Percutaneous Approach (ICD-10-PCS; principal; 2023-09-18)
PROC: 3E033NZ Introduction of Analgesics, Hypnotics, Sedatives into Peripheral Vein, Percutaneous Approach (ICD-10-PCS; 2023-09-18)
PROC: 3E0337Z Introduction of Electrolytic and Water Balance Substance into Peripheral Vein, Percutaneous Approach (ICD-10-PCS; 2023-09-18)
PROC: 0TB03ZX Excision of Right Kidney, Percutaneous Approach, Diagnostic (ICD-10-PCS; 2023-09-24)
PROC: 0TB08ZX Excision of Right Kidney, Via Natural or Artificial Opening Endoscopic, Diagnostic (ICD-10-PCS; 2023-09-24)
PROC: BT41ZZZ Ultrasonography of Right Kidney (ICD-10-PCS; 2023-09-24)
DX: N26.9 Renal sclerosis, unspecified (principal); N18.4 Chronic kidney disease, stage 4 (severe); N17.9 Acute kidney failure, unspecified; E11.22 Type 2 diabetes mellitus with diabetic chronic kidney disease; I12.9 Hypertensive chronic kidney disease with stage 1 through stage 4 chronic kidney disease, or unspecified chronic kidney disease; E78.5 Hyperlipidemia, unspecified; E66.01 Morbid (severe) obesity due to excess calories; Z68.42 Body mass index [BMI] 45.0-49.9, adult; D72.829 Elevated white blood cell count, unspecified; Z79.4 Long term (current) use of insulin; Z88.0 Allergy status to penicillin
CPT/HCPCS: 0241U-QW; 36415; 50200; 71046-TC-FY; 76998-TC; 80048; 80053; 80076; 81003; 82550; 82553; 82570; 83036; 83605; 83880; 84156; 84443; 84484; 84702; 84703; 85025; 85610; 85730; 86850; 86900; 86901; 87040; 87086; 88300-TC; 88329; 93005; 93010; 93306-TC; 93970-TC; 96361; 96374; 96375; 96376; 99285-25; G0378; J0131; J1644

== ENCOUNTER 2023-10-26 21:37 | Observation (INO) | payer OTHER ==
[2023-10-26 21:43] VITALS: BMI 49.3
[2023-10-26 23:19] LABS: BASO % 1.2 % (0-2.0); EOS % 4.6 % (0-4.5); HEMATOCRIT 25.4 % (32.4-45.2); HEMOGLOBIN 8.4 GM/dL (10.7-15.3); LYMPH % 22.1 % (8-40); MCH 29.7 pg (25.7-33.7); MCHC 33.2 g/dl (32.0-36.0); MEAN CELL VOLUME 89.4 fl (80-96); MEAN PLT VOLUME 7.1 fl (7.5-11.1); NEUT % 58.1 % (42.8-82.8); PLATELET COUNT 234 10^3/uL (134-434); RBC 2.84 M/mm3 (3.60-5.2); RDW 13.9 % (11.6-15.6); WHITE BLOOD COUNT 8.1 K/mm3 (4.0-10.0)
[2023-10-26] MEDS: REMDESIVIR 200 MG in SODIUM CHLORIDE 250 ML IVPB ONE (23:44)
[2023-10-26 23:51] LABS: ALBUMIN 2.6 g/dl (3.4-5.0); CALCIUM 7.6 mg/dL (8.5-10.1)
[2023-10-26 23:52] LABS: BLOOD UREA NITROGEN 67.2 mg/dL (7-18)
[2023-10-26 23:55] LABS: CREATININE 6.3 mg/dL (0.55-1.3)
[2023-10-26 23:56] LABS: BILIRUBIN,TOTAL 0.2 mg/dL (0.2-1); TOT PROT 5.8 g/dl (6.4-8.2)
[2023-10-27] MEDS: REMDESIVIR 200 MG in SODIUM CHLORIDE 250 ML IVPB ONE (01:54)
[2023-10-27] MEDS ORDERED: hydrALAZINE HCL 25 MG TABLET (FP) ONE (05:43)
[2023-10-27] MEDS ORDERED: HEPARIN NA (PORCINE) 5,000 UNITS/ML 1ML VIAL ONE (05:44)
[2023-10-27] MEDS: hydrALAZINE HCL 25 MG TABLET (FP) PO ONE (05:55)
[2023-10-27] MEDS: SODIUM BICARBONATE 650 MG TABLET PO SCH (06:03)
[2023-10-27] MEDS: HEPARIN NA (PORCINE) 5,000 UNITS/ML 1ML VIAL SQ SCH (06:03)
[2023-10-27 06:11] LABS: HEMATOCRIT 25.5 % (32.4-45.2); HEMOGLOBIN 8.4 GM/dL (10.7-15.3); MCH 29.7 pg (25.7-33.7); MCHC 32.8 g/dl (32.0-36.0); MEAN CELL VOLUME 90.4 fl (80-96); PLATELET COUNT 237 10^3/uL (134-434); RBC 2.82 M/mm3 (3.60-5.2); RDW 13.8 % (11.6-15.6); RETICULOCYTES 1.88 % (0.5-1.5); WHITE BLOOD COUNT 7.9 K/mm3 (4.0-10.0)
[2023-10-27 06:30] LABS: POTASSIUM 3.9 mmol/L (3.5-5.1)
[2023-10-27 06:33] LABS: BLOOD UREA NITROGEN 66.6 mg/dL (7-18); CALCIUM 7.8 mg/dL (8.5-10.1)
[2023-10-27 06:34] LABS: ALBUMIN 2.6 g/dl (3.4-5.0)
[2023-10-27 06:36] LABS: CREATININE 6.3 mg/dL (0.55-1.3); PHOSPHOROUS 4.5 mg/dL (2.5-4.9)
[2023-10-27 06:37] LABS: TOT PROT 5.6 g/dl (6.4-8.2)
[2023-10-27 06:38] LABS: BILIRUBIN,TOTAL 0.3 mg/dL (0.2-1)
[2023-10-27] MEDS: INSULIN ASPART SLIDING SCALE (NOVOLOG) 1 VIAL SQ SCH (07:59)
[2023-10-27] MEDS: FOLIC ACID 1 MG TABLET (FP) PO SCH (10:10)
[2023-10-27] MEDS: NIFEdipine E.R. 90 MG TABLET PO SCH (10:10)
[2023-10-27] MEDS: FERROUS SO4 325 MG TABLET (FP) PO SCH (10:10)
[2023-10-27] MEDS: CYANOCOBALAMIN 1,000 MCG TABLET (FP) PO SCH (10:10)
[2023-10-27] MEDS: INSULIN PUMP - PATIENTS OWN MED NR SCH (22:09)
[2023-10-27] MEDS: ROSUVASTATIN CA 5 MG TABLET PO SCH (22:09)
[2023-10-28 05:49] VITALS: RESP 18
[2023-10-28 09:50] LABS: BASO % 1.1 % (0-2.0); EOS % 5.9 % (0-4.5); HEMATOCRIT 24.9 % (32.4-45.2); HEMOGLOBIN 8.1 GM/dL (10.7-15.3); LYMPH % 23.7 % (8-40); MCH 29.6 pg (25.7-33.7); MCHC 32.5 g/dl (32.0-36.0); MEAN CELL VOLUME 91.2 fl (80-96); MEAN PLT VOLUME 7.6 fl (7.5-11.1); MONO % 10.6 % (3.8-10.2); NEUT % 58.7 % (42.8-82.8); PLATELET COUNT 243 10^3/uL (134-434); RBC 2.73 M/mm3 (3.60-5.2); RDW 13.7 % (11.6-15.6); WHITE BLOOD COUNT 8.6 K/mm3 (4.0-10.0)
[2023-10-28 09:59] LABS: CHLORIDE 114 mmol/L (98-107); POTASSIUM 4.3 mmol/L (3.5-5.1); SODIUM 140 mmol/L (136-145)
[2023-10-28 10:03] LABS: ALBUMIN 2.5 g/dl (3.4-5.0); ANION GAP 8 mmol/L (4-13); BLOOD UREA NITROGEN 72.7 mg/dL (7-18); CALCIUM 7.8 mg/dL (8.5-10.1); CO2 18 mmol/L (21-32); GLUCOSE,RANDOM 82 mg/dL (74-106)
[2023-10-28 10:06] LABS: CREATININE 6.3 mg/dL (0.55-1.3); SGOT/AST 16 U/L (15-37); SGPT/ALT 24 U/L (13-61)
[2023-10-28] MEDS: REMDESIVIR 100 MG in SODIUM CHLORIDE 250 ML IVPB SCH (10:06)
[2023-10-28 10:08] LABS: BILIRUBIN,TOTAL 0.3 mg/dL (0.2-1); TOT PROT 5.3 g/dl (6.4-8.2)
[2023-10-28 10:09] LABS: ALK PHOS 121 U/L (45-117)
[2023-10-28 10:35] LABS: ERYTHROCYTE SEDIMENTATION RATE 66 mm/hr (0-20)
[2023-10-28] MEDS: hydrALAZINE HCL 25 MG TABLET (FP) PO PRN (20:37)
[2023-10-29 05:51] VITALS: TEMP 98.3
[2023-10-29 08:31] LABS: BASO % 1.1 % (0-2.0); EOS % 4.4 % (0-4.5); HEMATOCRIT 26.6 % (32.4-45.2); HEMOGLOBIN 8.8 GM/dL (10.7-15.3); LYMPH % 27.3 % (8-40); MCHC 33.1 g/dl (32.0-36.0); MEAN CELL VOLUME 90.8 fl (80-96); MEAN PLT VOLUME 7.6 fl (7.5-11.1); MONO % 8.1 % (3.8-10.2); NEUT % 59.1 % (42.8-82.8); PLATELET COUNT 267 10^3/uL (134-434); RBC 2.93 M/mm3 (3.60-5.2); RDW 13.3 % (11.6-15.6); WHITE BLOOD COUNT 8.3 K/mm3 (4.0-10.0)
[2023-10-29 08:38] LABS: POTASSIUM 4.5 mmol/L (3.5-5.1)
[2023-10-29 08:41] LABS: CALCIUM 7.7 mg/dL (8.5-10.1)
[2023-10-29 08:42] LABS: ALBUMIN 2.5 g/dl (3.4-5.0); BLOOD UREA NITROGEN 77.8 mg/dL (7-18)
[2023-10-29 08:45] LABS: BILIRUBIN,TOTAL 0.3 mg/dL (0.2-1); CREATININE 6.1 mg/dL (0.55-1.3); TOT PROT 5.6 g/dl (6.4-8.2)
[2023-10-29 12:01] VITALS: BP 160/98; PULSE 75
== END 2023-10-29 14:12 | disposition home or self-care (01) ==
LOC: JER 21:37 → JERBED 23:54 → J8W 10-27 14:34
PROVIDERS: ADMIT Internal Medicine; ATTEND Nurse Practitioner Family
PROC: 3E033GC Introduction of Other Therapeutic Substance into Peripheral Vein, Percutaneous Approach (ICD-10-PCS; principal; 2023-10-26)
DX: U07.1 COVID-19 (principal); E11.22 Type 2 diabetes mellitus with diabetic chronic kidney disease; I12.9 Hypertensive chronic kidney disease with stage 1 through stage 4 chronic kidney disease, or unspecified chronic kidney disease; N17.9 Acute kidney failure, unspecified; Z29.89 Encounter for other specified prophylactic measures; Z88.0 Allergy status to penicillin; Z86.16 Personal history of COVID-19; Z79.4 Long term (current) use of insulin
CPT/HCPCS: 0241U-QW; 36415; 71046-TC-FY; 80053; 82728; 83036; 83540; 83550; 83735; 84100; 84466; 85025; 85027; 85045; 85651; 86140; 93005; 93010; 96365; 96366; 96372; 99285-25; G0378; J0248; J1644

== ENCOUNTER 2023-12-12 04:38 | Day surgery (SDC) | payer OTHER ==
[2023-12-11 09:25] VITALS: BMI 17.2
[2023-12-12] MEDS ORDERED: HEPARIN NA (PORCINE) 5,000 UNITS/ML 1ML VIAL ONE (14:13)
[2023-12-12] MEDS ORDERED: PAPAVERINE HCL 30 MG/1 ML 10 ML VIAL NR ONE (14:13)
[2023-12-12] MEDS ORDERED: LIDOCAINE HCL 1%, 10 MG/ML (20ML VIAL) ONE (14:13)
[2023-12-12] MEDS: CLINDAMYCIN 900 MG PREMIX BAG IVPB ONE (14:32)
[2023-12-12] MEDS ORDERED: ceFAZolin SODIUM 1 GM VIAL ONE (16:11)
[2023-12-12] MEDS ORDERED: PROPOFOL 20 ML ONE ×2 (16:11→16:55)
[2023-12-12] MEDS ORDERED: MIDAZOLAM HCL 2 MG/2 ML SINGLE DOSE VIAL ONE (16:11)
[2023-12-12] MEDS ORDERED: LIDOCAINE HCL/PF 2% SDV 5ML VIAL ONE (16:12)
[2023-12-12] MEDS ORDERED: oxyCODONE HCL 5 MG TABLET PO PRN (16:17)
[2023-12-12] MEDS ORDERED: ONDANSETRON 4 MG/2 ML VIAL IVPUSH PRN (16:17)
[2023-12-12] MEDS ORDERED: ACETAMINOPHEN 1000 MG/100 ML BAG IVPB PRN (16:17)
[2023-12-12] MEDS ORDERED: CLINDAMYCIN PHOSPHATE 300 MG/2 ML VIAL ONE (16:30)
[2023-12-12] MEDS ORDERED: SODIUM CHLORIDE 1,000 ML IV SCH (16:30)
[2023-12-12] MEDS ORDERED: POVIDONE-IODINE OINTMENT 10% - 28.4 GM TUBE ONE (16:30)
[2023-12-12] MEDS ORDERED: CLINDAMYCIN PHOSPHATE 600 MG/4 ML VIAL ONE (16:30)
[2023-12-12] MEDS: LIDOCAINE HCL 1%, 10 MG/ML (20ML VIAL) NR ONE ×3 (16:54)
[2023-12-12] MEDS: POVIDONE-IODINE OINTMENT 10% - 28.4 GM TUBE TP ONE ×2 (17:45)
[2023-12-12 19:18] VITALS: PULSE 70
[2023-12-12 19:58] VITALS: BP 135/73; RESP 20; TEMP 98
== END 2023-12-12 20:22 | disposition home or self-care (01) ==
LOC: JASU-SURG 04:38
PROVIDERS: ATTEND Surgery
PROC: 03180ZD Bypass Left Brachial Artery to Upper Arm Vein, Open Approach (ICD-10-PCS; principal; 2023-12-12 15:00)
DX: N18.9 Chronic kidney disease, unspecified (principal)
CPT/HCPCS: 94760; J1644

== ENCOUNTER 2024-02-24 12:58 | Inpatient (IN) | payer OTHER ==
[2024-02-24 14:58] LABS: EPI CELLS 6 /uL (0-25.1); HYALINE CASTS 0 /uL (0-3.1); PH,URINE 5.5 (5.0-8.0); URINE APPEARANCE TURBID; URINE BACTERIA >9,000 /uL (0-1359); URINE BILIRUBIN NEGATIVE (NEGATIVE); URINE COLOR YELLOW; URINE GLUCOSE (UA) TRACE (NEGATIVE); URINE KETONE NEGATIVE (NEGATIVE); URINE LEUK ESTERASE 3+ (NEGATIVE); URINE NITRITE NEGATIVE (NEGATIVE); URINE PROTEIN 3+ (NEGATIVE); URINE RBC 52 /uL (0-23.9); URINE UROBILINOGEN 0.2 mg/dL (0.2-1.0); URINE WBC 3410 /uL (0-25.8)
[2024-02-24 15:11] LABS: BASO % 1.3 % (0-2.0); EOS % 1.8 % (0-4.5); HEMATOCRIT 23.2 % (32.4-45.2); HEMOGLOBIN 7.4 GM/dL (10.7-15.3); LYMPH % 12.9 % (8-40); MCH 28.6 pg (25.7-33.7); MCHC 31.8 g/dl (32.0-36.0); MEAN CELL VOLUME 89.9 fl (80-96); PLATELET COUNT 270 10^3/uL (134-434); RBC 2.59 M/mm3 (3.60-5.2); WHITE BLOOD COUNT 13.3 K/mm3 (4.0-10.0)
[2024-02-24 15:33] LABS: CHLORIDE 109 mmol/L (98-107); POTASSIUM 4.3 mmol/L (3.5-5.1); SODIUM 137 mmol/L (136-145)
[2024-02-24 15:36] LABS: ALBUMIN 2.9 g/dl (3.4-5.0); ANION GAP 13 mmol/L (4-13); CO2 15 mmol/L (21-32); GLUCOSE,RANDOM 149 mg/dL (74-106); MAGNESIUM 1.6 mg/dL (1.8-2.4)
[2024-02-24 15:37] LABS: BLOOD UREA NITROGEN 104.4 mg/dL (7-18); CALCIUM 6.6 mg/dL (8.5-10.1)
[2024-02-24 15:38] LABS: PHOSPHOROUS 7.9 mg/dL (2.5-4.9)
[2024-02-24 15:39] LABS: SGOT/AST 22 U/L (15-37); SGPT/ALT 27 U/L (13-61)
[2024-02-24 15:40] LABS: BILIRUBIN,TOTAL 0.4 mg/dL (0.2-1); CREATININE 12.1 mg/dL (0.55-1.3); TOT PROT 6.4 g/dl (6.4-8.2)
[2024-02-24 15:41] LABS: ALK PHOS 117 U/L (45-117)
[2024-02-24] MEDS ORDERED: CALCIUM GLUC IN NACL, ISO-OSM 1 GM/50 ML BAG IVPB ONE ×2 (16:12→19:27)
[2024-02-24 17:23] LABS: HIV INTERPRETATION NEGATIVE (NEGATIVE)
[2024-02-24] MEDS ORDERED: MAGNESIUM SULFATE IN WATER 2 GM/50 ML IVPB IVPB ONE (18:05)
[2024-02-24] MEDS: CALCIUM ACETATE 667 MG CAPSULE (FP) PO SCH (18:39)
[2024-02-24] MEDS: MAGNESIUM SULFATE IN WATER 2 GM/50 ML IVPB IVPB ONE (18:46)
[2024-02-24] MEDS: SODIUM BICARBONATE 650 MG TABLET PO SCH (21:53)
[2024-02-24] MEDS: ROSUVASTATIN CA 5 MG TABLET PO SCH (21:53)
[2024-02-25] MEDS: FERROUS SO4 325 MG TABLET (FP) PO SCH (10:28)
[2024-02-25] MEDS: NIFEdipine E.R. 90 MG TABLET PO SCH (10:29)
[2024-02-25 12:02] LABS: BASO % 1.2 % (0-2.0); EOS % 1.9 % (0-4.5); HEMATOCRIT 21.4 % (32.4-45.2); LYMPH % 11.4 % (8-40); MCH 28.5 pg (25.7-33.7); MCHC 32.1 g/dl (32.0-36.0); MEAN CELL VOLUME 88.9 fl (80-96); MEAN PLT VOLUME 7.8 fl (7.5-11.1); MONO % 4.9 % (3.8-10.2); NEUT % 80.6 % (42.8-82.8); PLATELET COUNT 242 10^3/uL (134-434); RBC 2.41 M/mm3 (3.60-5.2); RDW 13.8 % (11.6-15.6); WHITE BLOOD COUNT 11.2 K/mm3 (4.0-10.0)
[2024-02-25 12:05] LABS: HEMOGLOBIN 6.9 GM/dL (10.7-15.3)
[2024-02-25 12:30] LABS: CHLORIDE 111 mmol/L (98-107); SODIUM 139 mmol/L (136-145)
[2024-02-25 12:36] LABS: ALBUMIN 2.7 g/dl (3.4-5.0); ANION GAP 11 mmol/L (4-13); BLOOD UREA NITROGEN 102.9 mg/dL (7-18); CO2 17 mmol/L (21-32); GLUCOSE,RANDOM 151 mg/dL (74-106); MAGNESIUM 1.8 mg/dL (1.8-2.4)
[2024-02-25 12:39] LABS: SGOT/AST 8 U/L (15-37); SGPT/ALT 21 U/L (13-61)
[2024-02-25 12:40] LABS: BILIRUBIN,TOTAL 0.3 mg/dL (0.2-1)
[2024-02-25 12:42] LABS: ALK PHOS 118 U/L (45-117)
[2024-02-25 12:48] LABS: CALCIUM 6.3 mg/dL (8.5-10.1); CREATININE 12.4 mg/dL (0.55-1.3)
[2024-02-25] MEDS ORDERED: SODIUM CHLORIDE 250 ML IV PRN (13:26)
[2024-02-25] MEDS: SODIUM CHLORIDE 0.9% 1000 ML INFUS.BAG IV ONE (15:34)
[2024-02-25] MEDS ORDERED: TRIMETHOBENZAMIDE HCL 200MG/2ML INJ IM PRN (15:45)
[2024-02-25] MEDS ORDERED: HEPARIN NA (PORCINE) 5,000 UNITS/ML 1ML VIAL SQ SCH (22:00)
[2024-02-26 00:25] LABS: HEMATOCRIT 24.6 % (32.4-45.2); HEMOGLOBIN 8.1 GM/dL (10.7-15.3); MCH 28.9 pg (25.7-33.7); MCHC 32.7 g/dl (32.0-36.0); MEAN CELL VOLUME 88.3 fl (80-96); MEAN PLT VOLUME 7.7 fl (7.5-11.1); PLATELET COUNT 270 10^3/uL (134-434); RBC 2.79 M/mm3 (3.60-5.2)
[2024-02-26] MEDS: TRIMETHOBENZAMIDE HCL 200MG/2ML INJ IM PRN (06:51)
[2024-02-26 10:06] LABS: BASO % 1.6 % (0-2.0); EOS % 2.1 % (0-4.5); HEMATOCRIT 27.4 % (32.4-45.2); HEMOGLOBIN 9.1 GM/dL (10.7-15.3); LYMPH % 15.9 % (8-40); MCH 29.3 pg (25.7-33.7); MCHC 33.3 g/dl (32.0-36.0); MEAN CELL VOLUME 88.1 fl (80-96); MEAN PLT VOLUME 7.5 fl (7.5-11.1); MONO % 6.6 % (3.8-10.2); NEUT % 73.8 % (42.8-82.8); PLATELET COUNT 285 10^3/uL (134-434); RBC 3.11 M/mm3 (3.60-5.2); WHITE BLOOD COUNT 12.9 K/mm3 (4.0-10.0)
[2024-02-26 10:24] LABS: CHLORIDE 111 mmol/L (98-107); POTASSIUM 3.6 mmol/L (3.5-5.1); SODIUM 141 mmol/L (136-145)
[2024-02-26 10:31] LABS: ALBUMIN 3.1 g/dl (3.4-5.0); ANION GAP 17 mmol/L (4-13); CO2 13 mmol/L (21-32); GLUCOSE,RANDOM 119 mg/dL (74-106); MAGNESIUM 1.8 mg/dL (1.8-2.4)
[2024-02-26 10:32] LABS: SGOT/AST 15 U/L (15-37); SGPT/ALT 25 U/L (13-61)
[2024-02-26 10:34] LABS: BILIRUBIN,TOTAL 0.3 mg/dL (0.2-1); BLOOD UREA NITROGEN 107.7 mg/dL (7-18); CALCIUM 6.7 mg/dL (8.5-10.1); CREATININE 12.7 mg/dL (0.55-1.3); PHOSPHOROUS 7.5 mg/dL (2.5-4.9); TOT PROT 6.5 g/dl (6.4-8.2)
[2024-02-26 10:35] LABS: ALK PHOS 127 U/L (45-117)
[2024-02-26] MEDS ORDERED: HEPARIN NA (PORCINE) 5,000 UNITS/ML 1ML VIAL ONE (16:30)
[2024-02-26] MEDS ORDERED: LIDOCAINE HCL 1%, 10 MG/ML (20ML VIAL) ONE (16:30)
[2024-02-26] MEDS ORDERED: DEXTROSE 50%-WATER 25 GM/50 ML DISP.SYRIN IVPUSH PRN ×2 (17:14→20:27)
[2024-02-26] MEDS ORDERED: DEXTROSE 50%-WATER 25 GM/50 ML DISP.SYRIN ONE (19:23)
[2024-02-26] MEDS ORDERED: MIDAZOLAM HCL 2 MG/2 ML SINGLE DOSE VIAL ONE (19:45)
[2024-02-26] MEDS ORDERED: ceFAZolin SODIUM 1 GM VIAL ONE (19:48)
[2024-02-26] MEDS: ceFAZolin SODIUM 1 GM VIAL IVPB ONE (19:49)
[2024-02-26] MEDS ORDERED: SODIUM CHLORIDE 0.9% P/F 10 ML VIAL IJ ONE (19:50)
[2024-02-26] MEDS: LIDOCAINE HCL 1%, 10 MG/ML (20ML VIAL) INF ONE (20:10)
[2024-02-26] MEDS ORDERED: SODIUM CHLORIDE 250 ML IV PRN (20:27)
[2024-02-26] MEDS ORDERED: TRIMETHOBENZAMIDE HCL 200MG/2ML INJ IM PRN (20:27)
[2024-02-26 20:47] LABS: IRON SERUM 48 ug/dL (50-175); TOTAL IRON BINDING CAPACITY 233 ug/dL (250-450)
[2024-02-26] MEDS ORDERED: ACETAMINOPHEN 325 MG TABLET (FP) ONE (21:21)
[2024-02-26] MEDS: CALCIUM GLUC IN NACL, ISO-OSM 1 GM/50 ML BAG IVPB ONE (21:23)
[2024-02-26] MEDS: ACETAMINOPHEN 325 MG TABLET (FP) PO ONE (21:34)
[2024-02-26] MEDS: SODIUM BICARBONATE 650 MG TABLET PO SCH (22:38)
[2024-02-26] MEDS: ROSUVASTATIN CA 5 MG TABLET PO SCH (22:38)
[2024-02-26 23:43] VITALS: BMI 60.0
[2024-02-27 09:24] LABS: BASO % 0.8 % (0-2.0); EOS % 2.2 % (0-4.5); HEMATOCRIT 24.5 % (32.4-45.2); HEMOGLOBIN 7.9 GM/dL (10.7-15.3); LYMPH % 15.2 % (8-40); MCH 28.5 pg (25.7-33.7); MCHC 32.4 g/dl (32.0-36.0); MEAN CELL VOLUME 87.9 fl (80-96); MEAN PLT VOLUME 7.8 fl (7.5-11.1); NEUT % 74.8 % (42.8-82.8); PLATELET COUNT 252 10^3/uL (134-434); RBC 2.78 M/mm3 (3.60-5.2); RDW 13.9 % (11.6-15.6); WHITE BLOOD COUNT 11.8 K/mm3 (4.0-10.0)
[2024-02-27] MEDS: NIFEdipine E.R. 90 MG TABLET PO SCH (09:50)
[2024-02-27 09:54] LABS: ALBUMIN 2.8 g/dl (3.4-5.0); ALK PHOS 114 U/L (45-117); ANION GAP 12 mmol/L (4-13); BILIRUBIN,TOTAL 0.3 mg/dL (0.2-1); CHLORIDE 113 mmol/L (98-107); CO2 16 mmol/L (21-32); GLUCOSE,RANDOM 82 mg/dL (74-106); MAGNESIUM 1.7 mg/dL (1.8-2.4); POTASSIUM 3.5 mmol/L (3.5-5.1); SGOT/AST 14 U/L (15-37); SGPT/ALT 18 U/L (13-61); SODIUM 141 mmol/L (136-145); TOT PROT 6.4 g/dl (6.4-8.2)
[2024-02-27 10:16] LABS: BLOOD UREA NITROGEN 107.7 mg/dL (7-18)
[2024-02-27] MEDS: FERROUS SO4 325 MG TABLET (FP) PO SCH (11:09)
[2024-02-27] MEDS: CALCIUM ACETATE 667 MG CAPSULE (FP) PO SCH (11:10)
[2024-02-27] MEDS ORDERED: SODIUM CHLORIDE 250 ML IV PRN (13:07)
[2024-02-27] MEDS: MAGNESIUM 2GM/50ML STERILE WATER IVPB IVPB ONE (15:50)
[2024-02-27] MEDS: MAGNESIUM SULF 50% (8.12 MEQ/2 ML-1 GM VIAL) IVPB ONE (17:37)
[2024-02-27] MEDS ORDERED: oxyCODONE HCL 5 MG TABLET PO PRN (18:15)
[2024-02-28] MEDS: HEPARIN NA (PORCINE) 5,000 UNITS/ML 1ML VIAL IVPUSH ONE (09:20)
[2024-02-28] MEDS: EPOETIN ALFA-EPBX 10,000 UNIT/ML VIAL SQ ONE (09:47)
[2024-02-28 10:36] LABS: BASO % 0.9 % (0-2.0); EOS % 2.2 % (0-4.5); HEMATOCRIT 22.7 % (32.4-45.2); HEMOGLOBIN 7.5 GM/dL (10.7-15.3); LYMPH % 16.1 % (8-40); MCH 29.3 pg (25.7-33.7); MEAN CELL VOLUME 88.8 fl (80-96); MEAN PLT VOLUME 7.9 fl (7.5-11.1); MONO % 7.2 % (3.8-10.2); NEUT % 73.6 % (42.8-82.8); PLATELET COUNT 213 10^3/uL (134-434); RBC 2.55 M/mm3 (3.60-5.2); RDW 13.6 % (11.6-15.6); WHITE BLOOD COUNT 12.6 K/mm3 (4.0-10.0)
[2024-02-28 11:01] LABS: MAGNESIUM 1.9 mg/dL (1.8-2.4)
[2024-02-28 13:31] LABS: CHLORIDE 109 mmol/L (98-107); POTASSIUM 3.2 mmol/L (3.5-5.1); SODIUM 140 mmol/L (136-145)
[2024-02-28 13:43] LABS: ALBUMIN 2.6 g/dl (3.4-5.0); ANION GAP 13 mmol/L (4-13); CO2 19 mmol/L (21-32); GLUCOSE,RANDOM 111 mg/dL (74-106)
[2024-02-28 13:46] LABS: SGOT/AST 15 U/L (15-37); SGPT/ALT 14 U/L (13-61)
[2024-02-28 13:47] LABS: BILIRUBIN,TOTAL 0.3 mg/dL (0.2-1); TOT PROT 5.9 g/dl (6.4-8.2)
[2024-02-28 13:48] LABS: BLOOD UREA NITROGEN 77.4 mg/dL (7-18); CALCIUM 6.9 mg/dL (8.5-10.1)
[2024-02-28 13:49] LABS: ALK PHOS 108 U/L (45-117)
[2024-02-28] MEDS ORDERED: ACETAMINOPHEN 1000 MG/100 ML BAG IVPB PRN (15:51)
[2024-02-28] MEDS: POTASSIUM CHLORIDE ORAL LIQUID 20 MEQ/15 ML PO ONE (16:22)
[2024-02-28] MEDS ORDERED: HEPARIN NA (PORCINE) 5,000 UNITS/ML 1ML VIAL IVPUSH PRN (16:24)
[2024-02-28] MEDS: HEPARIN INFUSION - 25,000 UNITS/500 ML INFUS.BAG IVPB SCH (20:11)
[2024-02-28 22:07] LABS: BASO % 0.6 % (0-2.0); EOS % 1.8 % (0-4.5); HEMATOCRIT 23.5 % (32.4-45.2); HEMOGLOBIN 7.9 GM/dL (10.7-15.3); LYMPH % 15.7 % (8-40); MCH 29.2 pg (25.7-33.7); MCHC 33.4 g/dl (32.0-36.0); MEAN CELL VOLUME 87.5 fl (80-96); MEAN PLT VOLUME 7.4 fl (7.5-11.1); MONO % 7.2 % (3.8-10.2); NEUT % 74.7 % (42.8-82.8); PLATELET COUNT 180 10^3/uL (134-434); RBC 2.69 M/mm3 (3.60-5.2)
[2024-02-28 22:32] LABS: CHLORIDE 106 mmol/L (98-107); POTASSIUM 3.3 mmol/L (3.5-5.1); SODIUM 141 mmol/L (136-145)
[2024-02-28 22:34] LABS: ALBUMIN 2.5 g/dl (3.4-5.0); CALCIUM 7.6 mg/dL (8.5-10.1)
[2024-02-28 22:36] LABS: ANION GAP 10 mmol/L (4-13); BLOOD UREA NITROGEN 54.7 mg/dL (7-18); CO2 25 mmol/L (21-32); GLUCOSE,RANDOM 192 mg/dL (74-106); MAGNESIUM 1.6 mg/dL (1.8-2.4)
[2024-02-28 22:38] LABS: SGOT/AST 13 U/L (15-37); SGPT/ALT 13 U/L (13-61)
[2024-02-28] MEDS: ATORVASTATIN CA 40 MG TABLET (FP) PO SCH (22:38)
[2024-02-28 22:39] LABS: PHOSPHOROUS 3.1 mg/dL (2.5-4.9)
[2024-02-28 22:40] LABS: BILIRUBIN,TOTAL 0.3 mg/dL (0.2-1); TOT PROT 5.6 g/dl (6.4-8.2)
[2024-02-28 22:41] LABS: ALK PHOS 116 U/L (45-117); CREATININE 8.1 mg/dL (0.55-1.3)
[2024-02-29] MEDS: MAGNESIUM OXIDE 400 MG TABLET (FP) PO ONE (00:50)
[2024-02-29] MEDS: MAGNESIUM 2GM/50ML STERILE WATER IVPB IVPB ONE (00:51)
[2024-02-29] MEDS: POTASSIUM CHLORIDE ORAL LIQUID 20 MEQ/15 ML PO ONE (00:52)
[2024-02-29] MEDS: HEPARIN NA (PORCINE) 5,000 UNITS/ML 1ML VIAL IVPUSH PRN (03:29)
[2024-02-29 05:50] VITALS: RESP 18
[2024-02-29 08:19] LABS: EPI CELLS >36 /uL (0-25.1); HYALINE CASTS 0 /uL (0-3.1); PH,URINE 6.5 (5.0-8.0); URINE APPEARANCE CLEAR; URINE BACTERIA 146 /uL (0-1359); URINE BILIRUBIN NEGATIVE (NEGATIVE); URINE COLOR YELLOW; URINE GLUCOSE (UA) 1+ (NEGATIVE); URINE KETONE NEGATIVE (NEGATIVE); URINE LEUK ESTERASE NEGATIVE (NEGATIVE); URINE NITRITE NEGATIVE (NEGATIVE); URINE PROTEIN 4+ (NEGATIVE); URINE RBC 23 /uL (0-23.9); URINE UROBILINOGEN 0.2 mg/dL (0.2-1.0); URINE WBC 41 /uL (0-25.8)
[2024-02-29] MEDS: ASPIRIN COATED 81 MG TABLET.EC PO SCH (09:09)
[2024-02-29 09:19] LABS: BASO % 1.4 % (0-2.0); EOS % 2.8 % (0-4.5); HEMATOCRIT 26.7 % (32.4-45.2); HEMOGLOBIN 8.7 GM/dL (10.7-15.3); LYMPH % 17.3 % (8-40); MCHC 32.5 g/dl (32.0-36.0); MEAN CELL VOLUME 89.1 fl (80-96); MEAN PLT VOLUME 7.6 fl (7.5-11.1); MONO % 8.6 % (3.8-10.2); NEUT % 69.9 % (42.8-82.8); PLATELET COUNT 208 10^3/uL (134-434); RDW 13.6 % (11.6-15.6); WHITE BLOOD COUNT 12.5 K/mm3 (4.0-10.0)
[2024-02-29 09:47] LABS: CHLORIDE 107 mmol/L (98-107); POTASSIUM 3.7 mmol/L (3.5-5.1); SODIUM 141 mmol/L (136-145)
[2024-02-29 09:49] LABS: ANION GAP 8 mmol/L (4-13); CO2 26 mmol/L (21-32); MAGNESIUM 1.8 mg/dL (1.8-2.4)
[2024-02-29 09:50] LABS: ALBUMIN 2.8 g/dl (3.4-5.0); CALCIUM 7.7 mg/dL (8.5-10.1)
[2024-02-29 09:51] LABS: BLOOD UREA NITROGEN 52.3 mg/dL (7-18); GLUCOSE,RANDOM 123 mg/dL (74-106)
[2024-02-29 09:52] LABS: SGOT/AST 15 U/L (15-37); SGPT/ALT 11 U/L (13-61)
[2024-02-29 09:54] LABS: CHOLESTEROL 106 mg/dL (50-200); PHOSPHOROUS 3.3 mg/dL (2.5-4.9); TOT PROT 6.5 g/dl (6.4-8.2)
[2024-02-29 09:56] LABS: BILIRUBIN,TOTAL 0.4 mg/dL (0.2-1); LDL CHOLESTEROL (ONLY SJRH) 37 mg/dL (5-100)
[2024-02-29 09:57] LABS: ALK PHOS 127 U/L (45-117); HDL CHOLESTEROL 61 mg/dL (40-60)
[2024-02-29 10:07] LABS: CREATININE 8.6 mg/dL (0.55-1.3)
[2024-03-01 11:56] LABS: HEMATOCRIT 26.9 % (32.4-45.2); HEMOGLOBIN 8.8 GM/dL (10.7-15.3); MCH 28.9 pg (25.7-33.7); MCHC 32.5 g/dl (32.0-36.0); MEAN CELL VOLUME 88.9 fl (80-96); MEAN PLT VOLUME 8.5 fl (7.5-11.1); PLATELET COUNT 206 10^3/uL (134-434); RBC 3.03 M/mm3 (3.60-5.2); RDW 13.6 % (11.6-15.6); WHITE BLOOD COUNT 15.3 K/mm3 (4.0-10.0)
[2024-03-01 13:34] VITALS: BP 138/94; PULSE 77; TEMP 99
== END 2024-03-01 13:15 | disposition home or self-care (01) | DRG 469 ==
LOC: JER 12:58 → JERBED 15:44 → J6S 19:36
PROVIDERS: ADMIT Internal Medicine; ATTEND Internal Medicine
PROC: 05HM33Z Insertion of Infusion Device into Right Internal Jugular Vein, Percutaneous Approach (ICD-10-PCS; 2024-02-26)
PROC: B543ZZA Ultrasonography of Right Jugular Veins, Guidance (ICD-10-PCS; 2024-02-26)
PROC: 0JH63XZ Insertion of Tunneled Vascular Access Device into Chest Subcutaneous Tissue and Fascia, Percutaneous Approach (ICD-10-PCS; principal; 2024-02-26 19:00)
PROC: 5A1D70Z Performance of Urinary Filtration, Intermittent, Less than 6 Hours Per Day (ICD-10-PCS; 2024-02-27)
PROC: 5A1D70Z Performance of Urinary Filtration, Intermittent, Less than 6 Hours Per Day (ICD-10-PCS; 2024-02-28)
DX: N17.9 Acute kidney failure, unspecified (principal); N18.6 End stage renal disease; E78.5 Hyperlipidemia, unspecified; I12.0 Hypertensive chronic kidney disease with stage 5 chronic kidney disease or end stage renal disease; H53.8 Other visual disturbances; E10.22 Type 1 diabetes mellitus with diabetic chronic kidney disease; E10.43 Type 1 diabetes mellitus with diabetic autonomic (poly)neuropathy; K31.84 Gastroparesis; I65.22 Occlusion and stenosis of left carotid artery; N39.0 Urinary tract infection, site not specified; B96.1 Klebsiella pneumoniae [K. pneumoniae] as the cause of diseases classified elsewhere; E87.20 Acidosis, unspecified; E83.39 Other disorders of phosphorus metabolism; R11.2 Nausea with vomiting, unspecified; E66.01 Morbid (severe) obesity due to excess calories; Z68.44 Body mass index [BMI] 60.0-69.9, adult; Z88.0 Allergy status to penicillin; Z99.2 Dependence on renal dialysis
CPT/HCPCS: 36415; 36430; 70450-TC; 70551-TC; 71045-TC-FY; 71046-TC-FY; 76000-TC-FY; 80053; 80061; 81003; 82607; 82728; 82746; 83036; 83540; 83550; 83735; 84100; 84484; 85025; 85027; 85730; 86704; 86705; 86708; 86803; 86850; 86900; 86901; 86922; 87040; 87086; 87186; 87340; 87389; 87517; 93005; 93010; 93880-TC; 93990-TC; 94760; 99285-25; C1750; J1644; P9058; Q5106

== ENCOUNTER 2024-03-17 04:17 | Day surgery (SDC) | payer OTHER ==
[2024-03-09 16:40] VITALS: BMI 48.6
[2024-03-17] MEDS ORDERED: ONDANSETRON 4 MG/2 ML VIAL IVPUSH PRN (11:54)
[2024-03-17] MEDS ORDERED: HEPARIN NA (PORCINE) 5,000 UNITS/ML 1ML VIAL ONE (12:01)
[2024-03-17] MEDS ORDERED: LIDOCAINE HCL 1%, 10 MG/ML (20ML VIAL) ONE (12:01)
[2024-03-17] MEDS ORDERED: MIDAZOLAM HCL 2 MG/2 ML SINGLE DOSE VIAL ONE (12:57)
[2024-03-17] MEDS ORDERED: ONDANSETRON 4 MG/2 ML VIAL ONE (13:06)
[2024-03-17] MEDS: LIDOCAINE HCL 1%, 10 MG/ML (20ML VIAL) INF ONE (13:06)
[2024-03-17] MEDS: IOHEXOL 180 MG/1 ML ML IJ ONE (13:07)
[2024-03-17] MEDS ORDERED: IBUPROFEN 600 MG TABLET (FP) PO PRN (14:01)
[2024-03-17 15:30] VITALS: RESP 18
[2024-03-17 16:31] VITALS: BP 112/68; PULSE 75; TEMP 97.8
== END 2024-03-17 16:10 | disposition home or self-care (01) ==
LOC: JASU-SURG 04:17
PROVIDERS: ATTEND Surgery
PROC: 057F3DZ Dilation of Left Cephalic Vein with Intraluminal Device, Percutaneous Approach (ICD-10-PCS; principal; 2024-03-17 11:30)
DX: T82.858A Stenosis of other vascular prosthetic devices, implants and grafts, initial encounter (principal); I12.0 Hypertensive chronic kidney disease with stage 5 chronic kidney disease or end stage renal disease; E11.22 Type 2 diabetes mellitus with diabetic chronic kidney disease; N18.6 End stage renal disease; Z79.4 Long term (current) use of insulin; Y83.8 Other surgical procedures as the cause of abnormal reaction of the patient, or of later complication, without mention of misadventure at the time of the procedure
CPT/HCPCS: 36415; 76000-TC-FY; 82947; 84132; 84703; 94760; J1644

== ENCOUNTER 2024-03-20 23:23 | Inpatient (IN) | payer OTHER ==
[2024-03-21] MEDS ORDERED: ACETAMINOPHEN INJECTION 100 ML ONE (00:03)
[2024-03-21] MEDS ORDERED: METOCLOPRAMIDE HCL INJECTION 10 MG/2 ML VIAL ONE (00:03)
[2024-03-21] MEDS: ACETAMINOPHEN 1000 MG/100 ML BAG IVPB ONE (00:14)
[2024-03-21] MEDS: SODIUM CHLORIDE 0.9% 500 ML INFUS.BAG IV ONE (00:14)
[2024-03-21] MEDS: METOCLOPRAMIDE HCL INJECTION 10 MG/2 ML VIAL IVPUSH ONE (00:25)
[2024-03-21 01:13] LABS: BASO % 0.5 % (0-2.0); EOS % 0.6 % (0-4.5); HEMATOCRIT 27.6 % (32.4-45.2); HEMOGLOBIN 8.8 GM/dL (10.7-15.3); LYMPH % 11.4 % (8-40); MCH 28.8 pg (25.7-33.7); MEAN CELL VOLUME 89.9 fl (80-96); MEAN PLT VOLUME 7.6 fl (7.5-11.1); MONO % 4.5 % (3.8-10.2); PLATELET COUNT 298 10^3/uL (134-434); RBC 3.07 M/mm3 (3.60-5.2); RDW 14.1 % (11.6-15.6)
[2024-03-21 01:27] LABS: POTASSIUM 3.7 mmol/L (3.5-5.1)
[2024-03-21 01:28] LABS: CALCIUM 8.7 mg/dL (8.5-10.1)
[2024-03-21 01:29] LABS: ALBUMIN 3.4 g/dl (3.4-5.0); BLOOD UREA NITROGEN 23.8 mg/dL (7-18); MAGNESIUM 1.6 mg/dL (1.8-2.4)
[2024-03-21 01:32] LABS: CREATININE 5.2 mg/dL (0.55-1.3)
[2024-03-21 01:33] LABS: BILIRUBIN,TOTAL 0.6 mg/dL (0.2-1)
[2024-03-21] MEDS ORDERED: MORPHINE SULFATE 2 MG/ML SYRINGE ONE ×2 (01:36→05:54)
[2024-03-21 01:46] LABS: TOT PROT 7.1 g/dl (6.4-8.2)
[2024-03-21] MEDS: morphine CARPU-JECT 2 MG/1 ML DISP.SYRIN IVPUSH ONE ×2 (01:51→06:04)
[2024-03-21] MEDS ORDERED: ONDANSETRON 4 MG/2 ML VIAL IVPUSH PRN (09:24)
[2024-03-21] MEDS ORDERED: INSULIN ASPART SLIDING SCALE (NOVOLOG) 1 VIAL SQ SCH (11:00)
[2024-03-21 11:14] LABS: HIV INTERPRETATION NEGATIVE (NEGATIVE)
[2024-03-21] MEDS: NIFEdipine E.R. 90 MG TABLET PO SCH (11:32)
[2024-03-21] MEDS: ASPIRIN COATED 81 MG TABLET.EC PO SCH (11:32)
[2024-03-21] MEDS: INSULIN ASPART SLIDING SCALE (NOVOLOG) 1 VIAL SQ SCH (11:35)
[2024-03-21 12:12] VITALS: BMI 47.1
[2024-03-21 13:36] LABS: EPI CELLS 23 /uL (0-25.1); HYALINE CASTS 0 /uL (0-3.1); PH,URINE 7.5 (5.0-8.0); URINE APPEARANCE CLOUDY; URINE BACTERIA >9,000 /uL (0-1359); URINE BILIRUBIN NEGATIVE (NEGATIVE); URINE COLOR YELLOW; URINE GLUCOSE (UA) 1+ (NEGATIVE); URINE KETONE 1+ (NEGATIVE); URINE LEUK ESTERASE 2+ (NEGATIVE); URINE NITRITE NEGATIVE (NEGATIVE); URINE PROTEIN 4+ (NEGATIVE); URINE RBC 39 /uL (0-23.9); URINE UROBILINOGEN 0.2 mg/dL (0.2-1.0); URINE WBC 2711 /uL (0-25.8)
[2024-03-21] MEDS: ACETAMINOPHEN 1000 MG/100 ML BAG IVPB PRN (18:18)
[2024-03-21] MEDS: ATORVASTATIN CA 40 MG TABLET (FP) PO SCH (21:24)
[2024-03-22 08:34] LABS: BASO % 0.9 % (0-2.0); EOS % 3.1 % (0-4.5); HEMATOCRIT 26.4 % (32.4-45.2); HEMOGLOBIN 8.2 GM/dL (10.7-15.3); LYMPH % 21.2 % (8-40); MCH 28.7 pg (25.7-33.7); MCHC 31.2 g/dl (32.0-36.0); MEAN CELL VOLUME 91.9 fl (80-96); MEAN PLT VOLUME 7.4 fl (7.5-11.1); MONO % 8.8 % (3.8-10.2); PLATELET COUNT 273 10^3/uL (134-434); RBC 2.87 M/mm3 (3.60-5.2); RDW 14.3 % (11.6-15.6); WHITE BLOOD COUNT 12.3 K/mm3 (4.0-10.0)
[2024-03-22 08:54] VITALS: PULSE 73
[2024-03-22 08:54] LABS: CHLORIDE 103 mmol/L (98-107); POTASSIUM 3.5 mmol/L (3.5-5.1); SODIUM 139 mmol/L (136-145)
[2024-03-22 08:56] LABS: BLOOD UREA NITROGEN 34.4 mg/dL (7-18); CALCIUM 8.3 mg/dL (8.5-10.1)
[2024-03-22 08:57] LABS: ANION GAP 8 mmol/L (4-13); CO2 27 mmol/L (21-32); GLUCOSE,RANDOM 91 mg/dL (74-106)
[2024-03-22 09:00] LABS: SGOT/AST 20 U/L (15-37); SGPT/ALT 24 U/L (13-61)
[2024-03-22 09:02] LABS: BILIRUBIN,TOTAL 0.4 mg/dL (0.2-1); TOT PROT 6.2 g/dl (6.4-8.2)
[2024-03-22 09:03] LABS: ALK PHOS 132 U/L (45-117)
[2024-03-22 09:07] LABS: CREATININE 7.6 mg/dL (0.55-1.3)
[2024-03-22] MEDS ORDERED: morphine CARPU-JECT 2 MG/1 ML DISP.SYRIN IVPUSH PRN (11:42)
[2024-03-22] MEDS: ACETAMINOPHEN 1000 MG/100 ML BAG IVPB PRN (12:15)
[2024-03-22 13:21] VITALS: BP 138/85; RESP 18; TEMP 98.6
[2024-03-22] MEDS ORDERED: BRIMONIDINE TARTRATE 0.15% OPHTHALMIC 5 ML BOTTLE OS SCH (14:00)
[2024-03-22] MEDS ORDERED: TIMOLOL 0.5% OPHTHALMIC SOL 5 ML BOTTLE OU SCH (14:00)
[2024-03-22] MEDS ORDERED: SODIUM CHLORIDE 250 ML IV PRN (14:26)
[2024-03-23] MEDS ORDERED: EPOETIN ALFA-EPBX 10,000 UNIT/ML VIAL SQ ONE (14:26)
== END 2024-03-22 13:50 | disposition short-term general hospital (02) | DRG 82 ==
LOC: JER 23:23 → JERBED 03-21 06:16 → J7W 03-21 09:36 → OBSVTOIN 03-22 08:17
PROVIDERS: ADMIT Internal Medicine; ATTEND Internal Medicine
DX: H57.12 Ocular pain, left eye (principal); E83.39 Other disorders of phosphorus metabolism; H54.62 Unqualified visual loss, left eye, normal vision right eye; H40.059 Ocular hypertension, unspecified eye; E78.5 Hyperlipidemia, unspecified; E83.51 Hypocalcemia; E11.43 Type 2 diabetes mellitus with diabetic autonomic (poly)neuropathy; D64.9 Anemia, unspecified; R51.9 Headache, unspecified; H53.142 Visual discomfort, left eye; E66.01 Morbid (severe) obesity due to excess calories; Z68.42 Body mass index [BMI] 45.0-49.9, adult; I12.0 Hypertensive chronic kidney disease with stage 5 chronic kidney disease or end stage renal disease; E11.22 Type 2 diabetes mellitus with diabetic chronic kidney disease; N18.6 End stage renal disease; Z99.2 Dependence on renal dialysis
CPT/HCPCS: 36415; 70450-TC; 80053; 81003; 82962; 83036; 83690; 83735; 85025; 86803; 87086; 87389; 87635; 99285-25; G0378; J0131

== ENCOUNTER 2024-06-06 19:34 | Observation (INO) | payer OTHER ==
[2024-06-06 19:52] VITALS: BMI 47.0
[2024-06-06] MEDS ORDERED: METOCLOPRAMIDE HCL INJECTION 10 MG/2 ML VIAL ONE (20:42)
[2024-06-06] MEDS ORDERED: ACETAMINOPHEN INJECTION 100 ML ONE (20:42)
[2024-06-06] MEDS ORDERED: FAMOTIDINE 20 MG/50 ML IVPB 20 MG/50 ML MG IVPB ONE (20:42)
[2024-06-06 20:45] LABS: VENOUS BASE EXCESS -1.9 mmol/L (-2-2); VENOUS O2 SATURATION 71.4 % (70-80); VENOUS PCO2 33.9 mmHg (38-52); VENOUS PH 7.427 (7.310-7.410)
[2024-06-06] MEDS: ACETAMINOPHEN 1000 MG/100 ML BAG IVPB ONE (20:55)
[2024-06-06] MEDS: METOCLOPRAMIDE HCL INJECTION 10 MG/2 ML VIAL IVPB ONE (20:55)
[2024-06-06] MEDS: SODIUM CHLORIDE 0.9% 500 ML INFUS.BAG IV ONE (20:55)
[2024-06-06] MEDS: FAMOTIDINE 20 MG/50 ML IVPB 20 MG/50 ML MG IVPB ONE (20:55)
[2024-06-06 21:01] LABS: BASO % 2.6 % (0-2.0); EOS % 2.1 % (0-4.5); HEMATOCRIT 36.3 % (32.4-45.2); HEMOGLOBIN 11.6 GM/dL (10.7-15.3); LYMPH % 17.2 % (8-40); MCH 28.9 pg (25.7-33.7); MCHC 31.9 g/dl (32.0-36.0); MEAN CELL VOLUME 90.6 fl (80-96); MEAN PLT VOLUME 7.8 fl (7.5-11.1); MONO % 7.1 % (3.8-10.2); PLATELET COUNT 237 10^3/uL (134-434); RBC 4.01 M/mm3 (3.60-5.2); RDW 15.1 % (11.6-15.6); WHITE BLOOD COUNT 11.5 K/mm3 (4.0-10.0)
[2024-06-06 21:04] LABS: CHLORIDE 103 mmol/L (98-107); POTASSIUM 3.1 mmol/L (3.5-5.1); SODIUM 141 mmol/L (136-145)
[2024-06-06 21:06] LABS: ALBUMIN 3.4 g/dl (3.4-5.0); ANION GAP 15 mmol/L (4-13); CO2 23 mmol/L (21-32)
[2024-06-06 21:07] LABS: GLUCOSE,RANDOM 105 mg/dL (74-106)
[2024-06-06 21:09] LABS: INR 1.01 (0.83-1.09); SGOT/AST 18 U/L (15-37); SGPT/ALT 20 U/L (13-61)
[2024-06-06 21:10] LABS: PHOSPHOROUS 5.7 mg/dL (2.5-4.9)
[2024-06-06 21:11] LABS: ACTIVATED PTT 28.8 SECONDS (25.2-36.5); BILIRUBIN,TOTAL 0.5 mg/dL (0.2-1); TOT PROT 7.2 g/dl (6.4-8.2)
[2024-06-06 21:12] LABS: ALK PHOS 98 U/L (45-117)
[2024-06-06 22:02] LABS: HIV INTERPRETATION NEGATIVE (NEGATIVE)
[2024-06-06 23:22] LABS: EPI CELLS >36 /uL (0-25.1); HYALINE CASTS 0 /uL (0-3.1); URINE APPEARANCE CLEAR; URINE BACTERIA 1366 /uL (0-1359); URINE BILIRUBIN NEGATIVE (NEGATIVE); URINE COLOR YELLOW; URINE GLUCOSE (UA) TRACE (NEGATIVE); URINE KETONE TRACE (NEGATIVE); URINE LEUK ESTERASE NEGATIVE (NEGATIVE); URINE NITRITE NEGATIVE (NEGATIVE); URINE PROTEIN 4+ (NEGATIVE); URINE RBC 24 /uL (0-23.9); URINE UROBILINOGEN 0.2 mg/dL (0.2-1.0); URINE WBC 43 /uL (0-25.8)
[2024-06-07] MEDS ORDERED: CEFTRIAXONE 1 G/50 ML PREMIX 50 ML IVPB ONE (00:23)
[2024-06-07] MEDS: CEFTRIAXONE 1,000 MG in DEXTROSE 5%-WATER - 50 ML IVPB ONE (00:33)
[2024-06-07] MEDS ORDERED: ACETAMINOPHEN INJECTION 100 ML ONE (02:36)
[2024-06-07] MEDS ORDERED: TRIMETHOBENZAMIDE HCL 200MG/2ML INJ IM ONE (02:36)
[2024-06-07] MEDS: TRIMETHOBENZAMIDE HCL 200MG/2ML INJ IM PRN (02:55)
[2024-06-07] MEDS: ACETAMINOPHEN 1000 MG/100 ML BAG IVPB PRN (02:55)
[2024-06-07] MEDS ORDERED: HEPARIN NA (PORCINE) 5,000 UNITS/ML 1ML VIAL ONE (05:48)
[2024-06-07] MEDS: DEXTROSE 5%-NORMAL SALINE 1,000 ML IV SCH (05:49)
[2024-06-07] MEDS: HEPARIN NA (PORCINE) 5,000 UNITS/ML 1ML VIAL SQ SCH (05:49)
[2024-06-07] MEDS: POTASSIUM CHLORIDE ORAL LIQUID 20 MEQ/15 ML PO ONE (06:51)
[2024-06-07] MEDS ORDERED: POTASSIUM CHLORIDE ORAL LIQUID 20 MEQ/15 ML ONE (06:51)
[2024-06-07 07:10] LABS: BASO % 1.5 % (0-2.0); EOS % 3.9 % (0-4.5); HEMOGLOBIN 10.1 GM/dL (10.7-15.3); LYMPH % 20.8 % (8-40); MCH 30.2 pg (25.7-33.7); MCHC 33.5 g/dl (32.0-36.0); MEAN CELL VOLUME 90.1 fl (80-96); MEAN PLT VOLUME 7.7 fl (7.5-11.1); MONO % 7.1 % (3.8-10.2); NEUT % 66.7 % (42.8-82.8); PLATELET COUNT 204 10^3/uL (134-434); RBC 3.33 M/mm3 (3.60-5.2); RDW 15.2 % (11.6-15.6); WHITE BLOOD COUNT 9.5 K/mm3 (4.0-10.0)
[2024-06-07 07:11] LABS: CHLORIDE 103 mmol/L (98-107); SODIUM 140 mmol/L (136-145)
[2024-06-07 07:16] LABS: ALBUMIN 3.1 g/dl (3.4-5.0); CALCIUM 8.2 mg/dL (8.5-10.1)
[2024-06-07 07:17] LABS: BLOOD UREA NITROGEN 58.2 mg/dL (7-18); CO2 23 mmol/L (21-32); GLUCOSE,RANDOM 144 mg/dL (74-106)
[2024-06-07 07:19] LABS: SGOT/AST 12 U/L (15-37); SGPT/ALT 16 U/L (13-61)
[2024-06-07 07:20] LABS: BILIRUBIN,TOTAL 0.5 mg/dL (0.2-1); PHOSPHOROUS 7.3 mg/dL (2.5-4.9); TOT PROT 6.4 g/dl (6.4-8.2)
[2024-06-07 07:21] LABS: ALK PHOS 87 U/L (45-117)
[2024-06-07 07:23] LABS: ANION GAP 14 mmol/L (4-13); CREATININE 9.5 mg/dL (0.55-1.3); POTASSIUM 2.9 mmol/L (3.5-5.1)
[2024-06-07] MEDS: NIFEdipine E.R. 90 MG TABLET PO SCH (14:45)
[2024-06-07] MEDS ORDERED: SODIUM CHLORIDE 250 ML IV PRN (14:45)
[2024-06-07 15:11] LABS: TOTAL IRON BINDING CAPACITY 236 ug/dL (250-450)
[2024-06-07 15:12] LABS: IRON SERUM 48 ug/dL (50-175)
[2024-06-07] MEDS: HEPARIN NA (PORCINE) 5,000 UNITS/ML 1ML VIAL IVPUSH ONE (15:20)
[2024-06-07] MEDS: EPOETIN ALFA-EPBX 4,000 UNIT/ML VIAL SQ ONE (18:00)
[2024-06-08 08:08] LABS: BASO % 1.2 % (0-2.0); EOS % 4.5 % (0-4.5); HEMATOCRIT 30.1 % (32.4-45.2); HEMOGLOBIN 9.7 GM/dL (10.7-15.3); LYMPH % 24.7 % (8-40); MCH 29.4 pg (25.7-33.7); MCHC 32.1 g/dl (32.0-36.0); MEAN CELL VOLUME 91.4 fl (80-96); MEAN PLT VOLUME 8.1 fl (7.5-11.1); MONO % 8.6 % (3.8-10.2); PLATELET COUNT 178 10^3/uL (134-434); RDW 15.3 % (11.6-15.6); WHITE BLOOD COUNT 7.4 K/mm3 (4.0-10.0)
[2024-06-08 08:09] LABS: CHLORIDE 103 mmol/L (98-107); SODIUM 139 mmol/L (136-145)
[2024-06-08 08:13] LABS: CALCIUM 8.4 mg/dL (8.5-10.1)
[2024-06-08 08:14] LABS: CO2 29 mmol/L (21-32); GLUCOSE,RANDOM 103 mg/dL (74-106)
[2024-06-08 08:17] LABS: SGOT/AST 15 U/L (15-37); SGPT/ALT 15 U/L (13-61)
[2024-06-08 08:19] LABS: TOT PROT 6.3 g/dl (6.4-8.2)
[2024-06-08 08:20] LABS: ALK PHOS 86 U/L (45-117)
[2024-06-08 08:25] LABS: BILIRUBIN,TOTAL 0.4 mg/dL (0.2-1)
[2024-06-08 08:27] LABS: ANION GAP 7 mmol/L (4-13); BLOOD UREA NITROGEN 30.4 mg/dL (7-18); CREATININE 7.4 mg/dL (0.55-1.3); POTASSIUM 2.9 mmol/L (3.5-5.1)
[2024-06-08] MEDS: POTASSIUM CHLORIDE TABS 20 MEQ TABLET.ER (FP) PO ONE (14:10)
[2024-06-08] MEDS: KCL 10 MEQ IVPB 10 MEQ/100 ML INFUS.BAG IVPB SCH (14:10)
[2024-06-08] MEDS ORDERED: SODIUM CHLORIDE 250 ML IV PRN (23:00)
[2024-06-09 07:44] LABS: EOS % 4.8 % (0-4.5); HEMATOCRIT 29.5 % (32.4-45.2); HEMOGLOBIN 9.3 GM/dL (10.7-15.3); LYMPH % 25.1 % (8-40); MCH 29.3 pg (25.7-33.7); MCHC 31.6 g/dl (32.0-36.0); MEAN CELL VOLUME 92.6 fl (80-96); MEAN PLT VOLUME 8.3 fl (7.5-11.1); MONO % 8.5 % (3.8-10.2); NEUT % 60.6 % (42.8-82.8); PLATELET COUNT 193 10^3/uL (134-434); RBC 3.19 M/mm3 (3.60-5.2); RDW 15.6 % (11.6-15.6); WHITE BLOOD COUNT 8.1 K/mm3 (4.0-10.0)
[2024-06-09 07:48] LABS: INR 1.01 (0.83-1.09)
[2024-06-09 07:51] LABS: CHLORIDE 104 mmol/L (98-107); POTASSIUM 3.2 mmol/L (3.5-5.1); SODIUM 140 mmol/L (136-145)
[2024-06-09 07:56] LABS: ALBUMIN 2.9 g/dl (3.4-5.0); ANION GAP 11 mmol/L (4-13); CALCIUM 8.1 mg/dL (8.5-10.1); CO2 25 mmol/L (21-32)
[2024-06-09 07:57] LABS: BLOOD UREA NITROGEN 39.4 mg/dL (7-18); GLUCOSE,RANDOM 111 mg/dL (74-106); MAGNESIUM 1.9 mg/dL (1.8-2.4)
[2024-06-09 07:59] LABS: CREATININE 9.4 mg/dL (0.55-1.3); PHOSPHOROUS 5.3 mg/dL (2.5-4.9); SGOT/AST 14 U/L (15-37); SGPT/ALT 15 U/L (13-61)
[2024-06-09 08:01] LABS: BILIRUBIN,TOTAL 0.3 mg/dL (0.2-1); TOT PROT 6.1 g/dl (6.4-8.2)
[2024-06-09 08:02] LABS: ALK PHOS 91 U/L (45-117)
[2024-06-09] MEDS ORDERED: KCL 10 MEQ IVPB 10 MEQ/100 ML INFUS.BAG IVPB SCH (12:15)
[2024-06-09] MEDS: KCL 10 MEQ IVPB 10 MEQ/100 ML INFUS.BAG IVPB SCH ×2 (13:47→21:47)
[2024-06-09] MEDS: HEPARIN NA (PORCINE) 5,000 UNITS/ML 1ML VIAL IVPUSH ONE (17:10)
[2024-06-09] MEDS: EPOETIN ALFA-EPBX 10,000 UNIT/ML VIAL SQ ONE (19:56)
[2024-06-10 09:16] LABS: HEMATOCRIT 29.1 % (32.4-45.2); HEMOGLOBIN 9.5 GM/dL (10.7-15.3); MCH 29.6 pg (25.7-33.7); MCHC 32.8 g/dl (32.0-36.0); MEAN CELL VOLUME 90.3 fl (80-96); PLATELET COUNT 188 10^3/uL (134-434); RBC 3.22 M/mm3 (3.60-5.2); RDW 14.6 % (11.6-15.6); WHITE BLOOD COUNT 7.6 K/mm3 (4.0-10.0)
[2024-06-10 09:29] LABS: POTASSIUM 3.3 mmol/L (3.5-5.1)
[2024-06-10 09:39] LABS: BLOOD UREA NITROGEN 20.8 mg/dL (7-18); CALCIUM 8.2 mg/dL (8.5-10.1); MAGNESIUM 1.7 mg/dL (1.8-2.4)
[2024-06-10 09:43] LABS: CREATININE 6.7 mg/dL (0.55-1.3)
[2024-06-10] MEDS: MAGNESIUM 2GM/50ML STERILE WATER IVPB IVPB ONE (12:37)
[2024-06-10] MEDS: POTASSIUM CHLORIDE TABS 20 MEQ TABLET.ER (FP) PO ONE (12:37)
[2024-06-10 18:15] VITALS: BP 159/80; PULSE 87; RESP 17; TEMP 99
== END 2024-06-10 18:35 | disposition home or self-care (01) ==
LOC: JER 19:34 → JERBED 23:19 → J4S 06-07 20:06
PROVIDERS: ADMIT Internal Medicine
PROC: 0DJ08ZZ Inspection of Upper Intestinal Tract, Via Natural or Artificial Opening Endoscopic (ICD-10-PCS; principal; 2024-06-06)
PROC: 3E033NZ Introduction of Analgesics, Hypnotics, Sedatives into Peripheral Vein, Percutaneous Approach (ICD-10-PCS; 2024-06-06)
PROC: 3E023GC Introduction of Other Therapeutic Substance into Muscle, Percutaneous Approach (ICD-10-PCS; 2024-06-06)
PROC: 3E033GC Introduction of Other Therapeutic Substance into Peripheral Vein, Percutaneous Approach (ICD-10-PCS; 2024-06-06)
PROC: 3E023GC Introduction of Other Therapeutic Substance into Muscle, Percutaneous Approach (ICD-10-PCS; 2024-06-06)
PROC: 3E03329 Introduction of Other Anti-infective into Peripheral Vein, Percutaneous Approach (ICD-10-PCS; 2024-06-09)
DX: K31.84 Gastroparesis (principal); N18.6 End stage renal disease; I12.0 Hypertensive chronic kidney disease with stage 5 chronic kidney disease or end stage renal disease; N39.0 Urinary tract infection, site not specified; E10.22 Type 1 diabetes mellitus with diabetic chronic kidney disease; R79.89 Other specified abnormal findings of blood chemistry; Z99.2 Dependence on renal dialysis; E66.9 Obesity, unspecified; R10.84 Generalized abdominal pain; I42.9 Cardiomyopathy, unspecified; K80.20 Calculus of gallbladder without cholecystitis without obstruction; I45.81 Long QT syndrome; Z87.440 Personal history of urinary (tract) infections
CPT/HCPCS: 0241U-QW; 36415; 71045-TC-FY; 74176-TC; 76705-TC; 80048; 80053; 81003; 82728; 82803; 83540; 83550; 83605; 83690; 83735; 84100; 84484; 84703; 85025; 85027; 85610; 85730; 86140; 86803; 86850; 86900; 86901; 87045; 87046; 87086; 87205; 87209; 87324; 87340; 87389; 87449; 87798; 93005; 93010; 93306-TC; 96365; 96366; 96367; 96372; 96375; 96376; 99285-25; G0378; J0131; J1644; Q5106